=== PATIENT | male | born 1960 | race Caucasian/White ===

== ENCOUNTER 2016-10-11 09:59 | Inpatient (IN) | payer OTHER, MEDICAID ==
[2016-10-11] VITALS (37 sets, daily range): BP systolic 71–172; BP diastolic 24–107
[~2016-10-11] VITALS: Ht 172.7 cm; Wt 100.2 kg
[2016-10-11] MEDS ORDERED: LACTULOSE10 GM/152 PO (10:36)
[2016-10-11] MEDS ORDERED: MAALOX MAXIMUM355 ML PO (10:36)
[2016-10-11] MEDS ORDERED: LIDODERM 5%1 EA TP (10:36)
[2016-10-11] MEDS ORDERED: TOPCARE ASPIRIN81 MG PO (10:36)
[2016-10-11] MEDS ORDERED: CEPHULAC10 GM/152 (10:36)
[2016-10-11] MEDS ORDERED: NEOMYCIN SULFA500 M1 PO (10:36)
[2016-10-11] MEDS ORDERED: BENADRYL25 M3 PO (10:36)
[2016-10-11] MEDS ORDERED: IBUPROFEN200 M3 PO (10:36)
[2016-10-11] MEDS ORDERED: SENOKOT8.6 MG PO (10:36)
[2016-10-11] MEDS ORDERED: GERI-TUSSI100 MG/5 M PO (10:36)
[2016-10-11] MEDS ORDERED: ACIDOPHILUS LA1 EACH PO (10:36)
[2016-10-11] MEDS ORDERED: ZESTRIL10 MG PO (10:36)
[2016-10-11] MEDS ORDERED: INDERAL20 MG PO (10:36)
[2016-10-11] MEDS ORDERED: LANTUS INS100 UNITS/ SUBQ (10:36)
[2016-10-11] MEDS ORDERED: NOVOLOG100 U/ML SUBQ (10:36)
[2016-10-11] MEDS ORDERED: ALBUTEROL0.63 MG/3 NEB (10:36)
[2016-10-11] MEDS ORDERED: DAILY VITAMIN1 EAC1 PO (10:36)
[2016-10-11] MEDS ORDERED: NOVOLOG FLEX100 U/ML SC (10:38)
--- NOTE | 2016-10-11 11:23 | NUR ---
PT PLACED IN BED 4 BY EMS.
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
[2016-10-11] MEDS ORDERED: NACL 0.9% 1,000 ML IV SCH ×2 (11:30→13:35)
[2016-10-11] MEDS ORDERED: NACL 0.9% 1,000 ML IV ONE (11:35)
--- NOTE | 2016-10-11 11:44 | NUR ---
XRAY AT BEDSIDE.
[2016-10-11] MEDS ORDERED: cefTRIAXone 2,000 MG in DEXTROSE 5% 100 ML IV ONE (11:55)
[2016-10-11] MEDS ORDERED: cefTRIAXone 2,000 MG VIAL ONE (12:07)
--- NOTE | 2016-10-11 12:07 | NUR ---
REMOVED DAWN CATHETER FROM [facility] AND REPLACED WITH NO 18 FAROESE INDWELLING DAWN W/O DIFFICULTY AND IMMEDICATE RETURN OF DARK RED MILKY URINE. INFORMED. UA SENT.
--- NOTE | 2016-10-11 12:10 | NUR ---
PT NITHIN 64/35; ER MD DR. SAM NOTIFIED; PT DENIES PAIN OR DISTRESS AT THIS TIME; BL LUNG SOUNDS CLEAR, WILL CONTINUE TO MONITOR.
[2016-10-11] MEDS ORDERED: DOBUTamine 250 MG/D5W PREMIX 250 ML IV SCH (12:20)
[2016-10-11] MEDS ORDERED: DOPamine 400 MG/D5W PREMIX 250 ML IV ONE (12:24)
--- NOTE | 2016-10-11 12:30 | NUR ---
PT BP 126/64; ER MD DR. SAM NOTIFIED; PT DENIES PAIN OR DISTRESS AT THIS TIME; BL LUNG SOUNDS CLEAR, WILL CONTINUE TO MONITOR.
--- NOTE | 2016-10-11 13:24 | NUR ---
Dr. Wolfe at bedside.
[2016-10-11] MEDS ORDERED: DOCUSATE SODIUM 250 MG GELCAP PO PRN (13:35)
[2016-10-11] MEDS ORDERED: IPRATROPIUM 0.02% 0.5 MG/2.5 ML NEBU INH PRN (13:35)
[2016-10-11] MEDS ORDERED: BISACODYL 10 MG SUPP RC PRN (13:35)
[2016-10-11] MEDS ORDERED: LORazepam 2 MG/ML VIAL IVP PRN (13:35)
[2016-10-11] MEDS ORDERED: POTASSIUM CHLORIDE 40 MEQ, LIDOCAINE 1% 25 MG in NACL 0.9% 250 ML IV PRN (13:35)
[2016-10-11] MEDS ORDERED: ACETAMINOPHEN 325 MG TAB PO PRN (13:35)
[2016-10-11] MEDS ORDERED: POTASSIUM CHLORIDE 10 MEQ TABER PO PRN (13:35)
[2016-10-11] MEDS ORDERED: DEXTROSE 50% 50 ML SYR IVP PRN (13:35)
[2016-10-11] MEDS ORDERED: cloNIDine 0.1 MG TAB PO PRN (13:35)
[2016-10-11] MEDS ORDERED: ONDANSETRON 4 MG/2 ML VIAL IVP PRN (13:35)
[2016-10-11] MEDS ORDERED: MAGNESIUM OXIDE 400 MG TAB PO PRN (13:35)
[2016-10-11] MEDS ORDERED: MORPHINE SULFATE 2 MG/ML SYR IVP PRN (13:35)
[2016-10-11] MEDS ORDERED: diphenhydrAMINE 50 MG/ML VIAL IVP PRN (13:35)
[2016-10-11] MEDS ORDERED: MAG SULF 2000 MG/WATER PREMIX 50 ML IV PRN (13:35)
[2016-10-11] MEDS ORDERED: ACETAMINOPHEN 650 MG SUPP RC PRN (13:35)
[2016-10-11] MEDS ORDERED: ZOLPIDEM 5 MG TAB PO PRN (13:35)
[2016-10-11] MEDS ORDERED: ALUMINUM HYD/MAG/SIMETHICONE 30 ML UDC PO PRN (13:35)
[2016-10-11] MEDS ORDERED: ALBUTEROL 0.083% 2.5 MG/3 ML NEBU INH PRN (13:35)
[2016-10-11] MEDS ORDERED: SODIUM PHOSPHATE 118 ML ENEM RC PRN (13:35)
[2016-10-11] MEDS ORDERED: HYDROcodone/APAP 5/325 MG 1 TAB TAB PO PRN ×2 (13:35)
[2016-10-11] MEDS ORDERED: guaiFENesin DM 200/20 MG-10 ML 10 ML UDC PO PRN (13:35)
--- NOTE | 2016-10-11 13:39 | NUR ---
REPORT GIVEN TO MANOJ RN
[2016-10-11] MEDS ORDERED: SENNA 8.6 MG TAB PO PRN (13:50)
--- NOTE | 2016-10-11 13:52 | NUR ---
US AT BEDSIDE; WILL TAKE PT TO FLOOR AFTER US COMPLETED; WILL CONTINUE TO MONITOR PT.
--- NOTE | 2016-10-11 14:07 | NUR ---
Patient will be admitted to care of . Admited to ICU . Will go to room ICU 7. Belongings list completed. Report to LUZ ARANDA.
[2016-10-11] MEDS ORDERED: PIPER/TAZO 2.25GM/D5W PREMIX 50 ML IV SCH (14:30)
--- NOTE | 2016-10-11 14:30 | NUR ---
RECEIVED PT FROM ER, AWAKE ALERT AND ORIENTED X4. CZECH SPEAKING. ABLE TO UNDERSTAND MINIMAL MAORI. BREATHING EVENLY AND UNLABORED ON ROOM AIR. NO SIGNS OF ACUTE DISTRESS. KEPT HOB ELEVATED AT LEAST 30 DEGREES. SKIN IS WARM AND DRY. NOTED SACRAL AND BUTTOCKS REDNESS. OFFLOADED AND KEPT CLEAN AND DRY. ALSO NOTED RIGHT HEEL BLISTER. NO DISCHARGE OR BLEEDING NOTED. KEPT ELEVATED ON PILLOWS. NO C/O ANY BOWEL OR BLADDER DISCOMFORT. DAWN CATHETER IN PLACE, INSERTED FROM ER. NOTED 300ML OF DARK NORRIS URINE. DENIES OF ANY PAIN AT THIS TIME. PT ORIENTED TO ICU UNIT, SAFETY PRECAUTIONS MAINTAINED. CALL LIGHT WITHIN REACH.
[2016-10-11] MEDS ORDERED: NACL 0.9% IRR 250 ML BOTTLE IR PRN (15:40)
[2016-10-11] MEDS ORDERED: Z-GUARD PASTE TP PRN (15:40)
[2016-10-11] MEDS ORDERED: GAUZE TP PRN (15:40)
--- NOTE | 2016-10-11 15:40 | NUR ---
ADMIT ORDERS RECEIVED FROM DR. SOL, NOTED AND CARRIED OUT.
[2016-10-11] MEDS: INSULIN LISPRO SLIDING SCALE 100 UNITS/ML VIAL SUBQ PRN ×2 (16:00→21:26)
[2016-10-11] MEDS: BLOOD GLUCOSE MONITORING 1 DEV DEV FS SCH ×2 (16:00→21:21)
--- NOTE | 2016-10-11 16:00 | NUR ---
PT RESTING WELL IN BED, CONTINUE CURRENT PLAN OF CARE, PLACED ON A COMFORTABLE POSITION. CONTINUE TO MONITOR.
[2016-10-11] MEDS: NEOMYCIN 500 MG TAB PO SCH ×2 (16:10→21:00)
[2016-10-11] MEDS: DOPamine 400 MG/D5W PREMIX 250 ML IV SCH (16:12)
--- NOTE | 2016-10-11 17:30 | NUR ---
PT REFUSED DINNER. ENCOURAGED TOLERATED. CONTINUE TO MONITOR.
--- NOTE | 2016-10-11 19:04 | NUR ---
PT ALERT AND RESPONSIVE, NO SIGNS OF ACUTE DISTRESS. ENDORSED TO ONCOMING BEAR KEEPER NURSE FOR CONTINUITY OF CARE.
--- NOTE | 2016-10-11 20:00 | NUR ---
PATIENT ALERT, ORIENTED X4, ROMANIAN SPEAKING, SR WITH PVC ON THE MONITOR, ON DOPAMINE DRIP, IV SITES ON RIGHT WRIST G#22 AND RAC G#20 PATENT AND INTACT, DAWN CATH DRAINING DARK NORRIS URINE, BUE/BLE WEAK, DENIES PAIN. DR. CRISTINA (RENAL) WAS HERE TO SEE THE PATIENT WITH ORDERS GIVE. PATIENT'S BROTHER AND NEPHEW AT BEDSIDE AT THIS TIME
[2016-10-11] MEDS ORDERED: SODIUM BICARBONATE 8.4% PFS 50 MEQ/50 ML SYR IVP SCH (20:20)
--- NOTE | 2016-10-11 20:30 | NUR ---
G AND BMP RESULTS REALYED TO DR. CRISTINA AT 2004, NEW ORDERS GIVEN AND CARRIED OUT.
[2016-10-11] MEDS ORDERED: PIPERACILLIN/TAZOBACTAM 2.25 GM in DEXTROSE 5% 50 ML IV SCH (21:00)
[2016-10-11] MEDS ORDERED: SODIUM BICARBONATE 8.4% PFS 50 MEQ/50 ML SYR IVP ONE (21:05)
[2016-10-11] MEDS: SODIUM BICARBONATE 8.4% 100 MEQ in NACL 0.45% 1,000 ML IV SCH (21:06)
[2016-10-11] MEDS: PIPER/TAZO 2.25GM/D5W PREMIX 50 ML IV SCH (21:46)
[2016-10-12] VITALS (93 sets, daily range): BP systolic 72–145; BP diastolic 40–75
[2016-10-12] MEDS ORDERED: POTASSIUM CHLORIDE 10 MEQ TABER PO ONE (00:50)
--- NOTE | 2016-10-12 00:56 | NUR ---
DR. CRISTINA CALLED AT 0050, UPDATES GIVEN ON PATIENT'S CONDITION, NEW ORDERS GIVEN.
[2016-10-12] MEDS ORDERED: Z-GUARD PASTE TP SCH (01:00)
[2016-10-12] MEDS: NACL 0.9% IRR 250 ML BOTTLE IR SCH ×2 (01:33→13:46)
[2016-10-12] MEDS: GAUZE TP SCH ×2 (01:34→13:46)
--- NOTE | 2016-10-12 02:00 | NUR ---
PATIENT SLEEPING, DOPAMINE DRIP AT 3 MCG/KG/MIN.
--- NOTE | 2016-10-12 04:00 | NUR ---
PATIENT WITH LARGE SOFT GREENISH STOOL, BED BATH PROVIDED, COMPLETE LINEN CHANGED. DOPAMINE DRIP REMAINS AT 3 MCG/KG/MIN. NEW IV LINE PLACED ON LEFT HAND G#24 WITH GOOD BLOOD FLOW, DENIES PAIN.
[2016-10-12] MEDS: PIPER/TAZO 2.25GM/D5W PREMIX 50 ML IV SCH ×3 (05:05→21:18)
--- NOTE | 2016-10-12 05:25 | NUR ---
CALL DR. CRISTINA ON HIS CELL PHONE [phone] TO REPORT VENOUS BLOOD GAS AND BMP RESULTS BUT DID NOT ANSWER THE CALL.
--- NOTE | 2016-10-12 05:30 | NUR ---
PAGED DR. CRISTINA TO REPORT BMP AND VENOUS BLOOD GAS RESULTS, CALL CARPENTER HELPER MAINTENANCE TO CALL DR. CRISTINA.
[2016-10-12] MEDS: BLOOD GLUCOSE MONITORING 1 DEV DEV FS SCH ×4 (06:30→20:47)
[2016-10-12] MEDS: INSULIN LISPRO SLIDING SCALE 100 UNITS/ML VIAL SUBQ PRN ×4 (06:31→20:49)
[2016-10-12] MEDS ORDERED: KCL 20 MEQ/WATER INJ PREMIX 100 ML IV SCH (06:35)
--- NOTE | 2016-10-12 06:36 | NUR ---
SPOKE WITH DR. CRISTINA, REPORTED VENOUS BLOOD GAS AND BMP RESULTS DRAWN AT 0400, MD GAVE ORDERS: KRIDER 20 MEQ IV FOR POTASSIUM LEVEL OF 3.1 AND REPEAT BMP AT 1800.
[2016-10-12] MEDS ORDERED: NACL 0.9% 1,000 ML IV ONE (06:45)
--- NOTE | 2016-10-12 07:30 | NUR ---
RECEIVED REPORT FROM SAUD ESCOBAR. PT AWAKE, ALERT, AND ORIENTED. BEDSIDE MONITOR SHOWS SR WITH PVCS. ON ROOM AIR, NO S/S OF RESPIRATORY DISTRESS NOTED. LUNG SOUNDS CLEAR BILATERALLY. ABDOMEN SOFT. NON TENDER WITH ACTIVE BOWEL SOUNDS. DAWN CATH IN PLACE WITH SMALL AMOUNT OF DARK NORRIS URINE NOTED. SKIN NON INTACT( SEE WOUND ASSESSMENT). BLE AND BUE WEAKNESS NOTED. PT ON DOPAMINE DRIP 3MCG/KG/MIN AT RIGHT AC #20, AND SODIUM BICARBONATE @ 100 MLS/HR AT RIGHT WRIST. 0.9 NS KTO @ LEFT HAND #22. ALL SITES INTACT AND PATENT. PT HAD MODERATE AMOUNT OF GREENISH LOOSE GERARDO, CLEANED PT. HOB ELEVATED 30 DEGREES WITH LOW BED POSITION. ORAL CARE GIVEN. CALL LIGHT IN REACH. WILL CONTINUE TO MONITOR.
[2016-10-12] MEDS: SODIUM BICARBONATE 8.4% 100 MEQ in NACL 0.45% 1,000 ML IV SCH ×2 (08:08→18:18)
[2016-10-12] MEDS ORDERED: ENOXAPARIN 30 MG/0.3 ML SYR SUBQ SCH (09:00)
[2016-10-12] MEDS: ECOTRIN 81 MG TABEC PO SCH (09:05)
[2016-10-12] MEDS: FAMOTIDINE 20 MG TAB PO SCH (09:06)
[2016-10-12] MEDS: NEOMYCIN 500 MG TAB PO SCH ×4 (09:15→20:47)
--- NOTE | 2016-10-12 09:18 | NUR ---
PATIENT HAS BEEN SCREENED AND CATEGORIZED HIGH NUTRITION RISK. PATIENT WILL BE SEEN WITHIN 1-2 DAYS OF ADMISSION. 10/12/16-10/13/[address]
[2016-10-12] MEDS: DOPamine 400 MG/D5W PREMIX 250 ML IV SCH (09:58)
--- NOTE | 2016-10-12 10:30 | NUR ---
PT HAD MODERATE AMOUNT OF GREENISH LOOSE STOOL, CLEANED PT. WILL CONTINUE TO MONITOR.
--- NOTE | 2016-10-12 10:30 | NUR ---
WOUND CARE EVALUATION NOTES: REASON FOR EVALUATION: RIGHT HEEL WOUND COMPLETE SKIN ASSESSMENT DONE ON THIS 56 Y/O MALE PATIENT FROM COUNT INCLUDES THE [facility] TO [facility], WITH INITIAL DIAGNOSIS OF SEPSIS AND ACUTE RENAL FAILURE. PAST MEDICAL HISTORY INCLUDE LIVER CIRRHOSIS, DM , HYPERTENSION, OSTEOARTHRITIS, SPINAL INJURY AND RIGHT HEEL CHRONIC ULCER. ALL ABOVE INFORMATION WAS OBTAINED FROM THE ADMISSION H&P. LABS ARE WBC 19.4, H/H 10.6/32.9, GLUCOSE 230, ALBUMIN 1.7, PT/INR 16.3/1.7 AND PTT 37.2. CURRENT MEDS INCLUDE ASPIRIN, ENOXAPARIN, ZOSYN, MORPHINE, NORCO, AMBIEN AND INSULIN. PATIENT IS AWAKE, SLOWED MOVEMENTS AND ABLE TO FOLLOW SIMPLE COMMANDS. SKIN WARM TO TOUCH WNL, TOENAILS ARE SLIGHTLY THICKENED, NO EDEMA, FINE AND HAIR GROWTH, +2 BILATERAL PEDAL PULSES AND DISCOLORATION NOTED ON RIGHT DISTAL LOWER LEG. FC 16FR PATENT AND INTACT TO NORRIS URINE IN MODERATE AMOUNT. NOTED TO HAVE LOOSE GREENISH STOOLS IN MODERATE AMOUNT. NEEDS MAX ASSISTANCE IN TURNING. INITIAL PLAN OF CARE AND PRESSURE PREVENTIVE MEASURES DISCUSSED, ABLE TO VERBALIZE PARTIAL UNDERSTANDING. WILL REINFORCE TEACHING. INTEGUMENTARY: SACRALCOCCYX TO BILATERAL BUTTOCKS - PARTIAL THICKNESS EROSION PERIAREA TO SCROTAL AREA - PARTIAL THICKNESS EROSION RIGHT MEDIAL HEEL - ST II - INTACT BLISTER RECOMMENDATIONS: -SACRALCOCCYX, BILATERAL BUTTOCKS, PERIAREA AND SCROTAL AREA: CLEANSE WITH MILD SOAP AND WATER, PAT DRY, APPLY Z GUARD BIDWC AND PRN WITH SOILING. LEAVE OPEN TO AIR -PAINT RIGHT HEEL WITH SKIN PREP WIPES BIDWC AND LEAVE OPEN TO AIR -TURN AND REPOSITION PATIENT Q2H TO LEFT AND RIGHT SIDE ONLY TO OFFLOAD SACRALCOCCYX -ASSESS AND MONITOR SKIN CONDITION DURING POSITION CHANGE, PLEASE PAY PARTICULAR ATTENTION TO SACRALCOCCYX, ELBOWS AND HEELS -OFFLOAD BILATERAL HEELS BY PLACING PILLOWS UNDER CALVES AT ALL TIMES, UNLESS OTHERWISE CONTRAINDICATED. -KEEP SKIN CLEAN AND DRY AT ALL TIMES. RECOMMENDATIONS DISCUSSED WITH PRIMARY RN. WILL FOLLOW UP PATIENT Q 7 DAYS AND PRN. PLEASE CONTACT C FOR ANY CONCERNS, QUESTIONS AND CHANGES IN SKIN CONDITION.
--- NOTE | 2016-10-12 11:00 | NUR ---
IN TO SEE PT. UPDATED PT'S LAB REPORT AND CRITICAL LAB REPORT GRAM POSITIVE COCCI IN CLUSTER . ORDER RECEIVED, WILL CARRY OUT.
[2016-10-12] MEDS ORDERED: VANCOMYCIN PER PHARMACY MC PRN (11:40)
[2016-10-12] MEDS ORDERED: POTASSIUM CHLORIDE 10 MEQ TABER PO SCH (11:44)
[2016-10-12] MEDS ORDERED: Z-GUARD PASTE TP PRN (11:50)
[2016-10-12] MEDS ORDERED: VANCOMYCIN 1GM/DEXT 5% PREMIX 200 ML IV SCH (12:01)
--- NOTE | 2016-10-12 12:13 | NUR ---
PT COMPLAINED NAUSEA, WILL GIVE ZOFRAN ORDERED.
[2016-10-12] MEDS ORDERED: PROBIOTIC SCREEN 1 EA MISC MC PRN (13:00)
--- NOTE | 2016-10-12 13:10 | NUR ---
PT HAD MODERATE AMOUNT OF GREENISH LOOSE STOOL, CLEANED PT. CLEANED WOUND WITH 0.9 NS AND DRIED WITH GAUZE. PUT Z-GUARD ON PT ORDERED. CALL LIGHT IN REACH.
--- NOTE | 2016-10-12 13:13 | NUR ---
CM NOTE RECEIVED CALL FROM DULCE AVILA PH# [phone] EXT [phone] AND SHE SAID TO SEND REVIEWS TO [facility]. INITIAL REVIEW SENT TO [facility] FAX# [phone] DULCE AVILA PH# [phone] EXT [phone]
[2016-10-12] MEDS: Z-GUARD PASTE TP SCH (13:46)
--- NOTE | 2016-10-12 13:49 | NUR ---
10/12/16 RD INITIAL ASSESSMENT COMPLETED PLEASE REFER TO NUTRITION ASSESSMENT UNDER CARE ACTIVITY FOR ESTIMATED NUTRITIONAL NEEDS. 1. CONTINUE RENAL DIET 2. RD TO FOLLOW-UP 2-3 DAYS; HIGH RISK PARAMJIT GALVAN RD
--- NOTE | 2016-10-12 15:35 | NUR ---
IN TO ASSESS PT. NOTIFIED PT HAS POSITIVE BLOOD CULTURE GRAM COCCI IN CLUSTER. DR. SOL AWARE PT IS ON VANCOMYCIN.
--- NOTE | 2016-10-12 17:00 | NUR ---
RECEIVED CRITICAL LAB REPORT K 2.7, BUN 86. PAGED WHO IS DRILL PRESS SET UP OPERATOR RADIAL. [phone] NEPHRO
--- NOTE | 2016-10-12 17:28 | NUR ---
CALLED BACK. NOTIFIED OF LOW POTASSIUM LEVEL 2.7, BUN 86, CREAT 4.0 AND CARBON DIOXIDE 16.7, PER DR. BURGESS, GIVE K RIDER [address] SOL'S ORDER AND CONTINUE PRESENT IV WITH SODIUM BICARBONATE UNTIL TOMORROW, WILL CARRY OUT ORDERS.
--- NOTE | 2016-10-12 17:50 | NUR ---
PT'S AND DAUGHTER PRESENT AT BEDSIDE. QUESTIONS ANSWERED.
--- NOTE | 2016-10-12 18:10 | NUR ---
PT HAD MODERATE AMOUNT OF LOOSE GREENISH STOOL. CLEANED PT. NO S/S OF RESPIRATORY DISTRESS NOTED. CALL LIGHT IN REACH. WILL CONTINUE TO MONITOR.
[2016-10-12] MEDS ORDERED: POTASSIUM CHLORIDE 40 MEQ, LIDOCAINE 1% 25 MG in NACL 0.9% 250 ML IV SCH (18:30)
--- NOTE | 2016-10-12 18:48 | NUR ---
NO DISTRESS/SOB/WHEEZING NOTED AT THIS TIME. NO INDICATION FOR HHN PRN TX
--- NOTE | 2016-10-12 19:07 | NUR ---
REPORT GIVEN TO KEN RN. NO PAIN OR DISCOMFORT NOTED. NO S/S OF RESPIRATORY DISTRESS. VSS. PT HAVING DINNER AT THIS TIME.
--- NOTE | 2016-10-12 19:22 | NUR ---
RECEIVED REPORT FROM DAY NURSE ROULA, RN FOR CONTINUATION OF CARE. PT IS AAOX4 PRIMARILY [place] SPEAKING. PT IS ON ROOM AIR WITH NO S/S OF ACUTE RESP DISTRESS NOTED AT THIS TIME. PT IS ON PUBLIC HEALTH SANITARIAN TECHNICIAN SHOWING SR WITH PVCS. PT ABDOMEN IS SOFT WITH ACTIVE BOWEL SOUNDS. PT HAS LEFT HAND IV SITE #22 RUNNING POTASSIUM CHLORIDE 40MEQ IN 250ML NS @ 68ML/HR, RIGHT FA#22 RUNNING SODIUM BICARB AT 100ML/HR AND RIGHT AC #20 RUNNING DOPAMINE AT 3MCG/KG/MIN AT THIS TIME. ALL SITES DRY PATENT AND INTACT WITH GOOD BLOOD RETURN NOTED. PT IS ON DAWN CATHETER TO GRAVITY DRAINING NORRIS COLORED URINE AT THIS TIME. SKIN IS NON-INTACT, SACRAL WOUND NOTED AND RIGHT HEEL BLISTER NOTED. SEE WOUND ASSESSMENT. SCDS IN PLACE, BED IN LOW POSITION, HOB UP CALL LIGHT LEFT WITHIN REACH. SAFETY PRECAUTIONS MAINTAINED, WILL CONTINUE TO CLOSELY MONITOR.
--- NOTE | 2016-10-12 21:16 | NUR ---
PT RESTING IN BED. NO SOB NOTED AT THIS TIME. PT DENIES ANY DISCOMFORT AT THIS TIME. CURRENT BP 142/68. TITRATED DOPAMINE DOWN TO 2 MCG/KG/MIN. WILL CONTINUE TO CLOSELY MONITOR
--- NOTE | 2016-10-12 22:46 | NUR ---
PT HAD SMALL AMOUNT OF GREEN-BROWN COLORED BM. PT CLEANED. LINED CHANGED. OFF LOADED PRESSURES. WILL CONTINUE TO CLOSELY MONITOR
[2016-10-13] VITALS (54 sets, daily range): BP systolic 90–147; BP diastolic 25–76
[2016-10-13] MEDS: NACL 0.9% IRR 250 ML BOTTLE IR SCH ×2 (01:00→13:34)
[2016-10-13] MEDS: GAUZE TP SCH ×2 (01:00→13:34)
[2016-10-13] MEDS: Z-GUARD PASTE TP SCH ×2 (01:00→13:34)
--- NOTE | 2016-10-13 01:23 | NUR ---
PT HAD MODERATE AMOUNT OF BROWN BM. PT CLEANED, LINEN CHANGED. PERINEAL CARE DONE. APPLIED Z-GUARD. NO SOB NOTED AT THIS TIME. PT DENIES ANY PAIN OR DISCOMFORT AT THIS TIME. WILL CONTINUE TO CLOSELY MONITOR.
--- NOTE | 2016-10-13 03:39 | NUR ---
PT APPEARS TO BE RESTING COMFORTABLY IN BED. NO S/S OF ACUTE RESP DISTRESS NOTED AT THIS TIME. NO SIGNS OF DISCOMFORT AT THIS TIME. SAFETY PRECAUTIONS STILL MAINTAINED. CALL LIGHT LEFT WITHIN REACH. WILL CONTINUE TO CLOSELY MONITOR.
--- NOTE | 2016-10-13 04:35 | NUR ---
PT LEFT HAND IV TUBING DISLODGE FROM SITE. PT CLEANED. IV SITE FLUSHED PATENT INTACT AND GOOD BLOOD RETURN NOTED. IV DRESSING CHANGED. PT HAD SMALL AMOUNT OF BM. PT CLEANED. LINEN AND BED CHANGED. PT BATHED. MORNING CARE RENDERED. NO SOB NOTED AT THIS TIME. PT DENIES ANY PAIN AT THIS TIME. BED IN LOW POSITION, HOB UP. WILL CONTINUE TO MONITOR.
[2016-10-13] MEDS: PIPER/TAZO 2.25GM/D5W PREMIX 50 ML IV SCH ×3 (05:30→20:02)
[2016-10-13] MEDS: SODIUM BICARBONATE 8.4% 100 MEQ in NACL 0.45% 1,000 ML IV SCH ×2 (05:31→17:12)
--- NOTE | 2016-10-13 06:18 | NUR ---
PT RESTING IN BED. DENIES ANY PAIN OR DISCOMFORT AT THIS TIME. NO SOB NOTED. SAFETY PRECAUTIONS STILL MAINTAINED. NO CHANGE IN CURRENT STATUS. WILL CONTINUE TO CLOSELY MONITOR.
[2016-10-13] MEDS: BLOOD GLUCOSE MONITORING 1 DEV DEV FS SCH ×4 (06:44→20:30)
[2016-10-13] MEDS: INSULIN LISPRO SLIDING SCALE 100 UNITS/ML VIAL SUBQ PRN ×4 (06:45→20:31)
--- NOTE | 2016-10-13 07:16 | NUR ---
ENDORSED PLAN OF CARE TO DAY NURSES LUZ FRANKLIN AND LUZ YANEZ FOR TRANSFER OF CARE. PT STABLE AT THIS TIME.
--- NOTE | 2016-10-13 07:30 | NUR ---
RECEIVED PATIENT REPORT FROM LUZ ROGERS. INITIAL ASSESSMENT DONE. SR ON THE MONITOR. PATIENT AWAKE, ALERT AND ORIENTED. NO S/S OF DISTRESS NOTED. PATIENT ON ROOM AIR. NO C/O OF PAIN AT THIS TIME. DAWN CATHETER IN PLACE DRAINING DARK NORRIS URINE. LEFT HAND IV LINE NOTED WITH NS AT 10ML INFUSING WELL. RIGHT AC IV 20G NO SIGNS OF INFILTRATION WITH DOPAMINE DRIP AT 2MCG/KG/MIN. SYSTOLIC BP ABOVE 90. RIGHT WRIST 22G WITH .45NS PLUS 2 AMPS OF SODIUM BICARB AT 100ML/HR. RIGHT HEEL BLISTER INTACT AND RAISE DRILL OPERATOR. INCONTINENT DERMATITIS ON THE BILATERAL BUTTOCKS. SCD IN PLACE. SIDE RAILS X3. BED LOWERED AND LOCKED. CALL LIGHT WITHIN REACH. WILL CONTINUE TO MONITOR
--- NOTE | 2016-10-13 07:48 | NUR ---
ABG DRAWN ON RB WITHOUT INCIDENT AND RESULTS GIVEN TO LUZ YANEZ AND LUZ FRANKLIN
--- NOTE | 2016-10-13 08:08 | NUR ---
PAGED DR BURGESS TO INFORM HER ABOUT PATIENT'S ABG RESULTS
--- NOTE | 2016-10-13 08:10 | NUR ---
DR BURGESS AWARE OF PATIENT'S ABG RESULTS
[2016-10-13] MEDS: FAMOTIDINE 20 MG TAB PO SCH (08:54)
[2016-10-13] MEDS: ECOTRIN 81 MG TABEC PO SCH (08:54)
[2016-10-13] MEDS: LACTOBACILLUS RHAMNOSUS GG 1 EACH CAP PO SCH (08:54)
[2016-10-13] MEDS: NEOMYCIN 500 MG TAB PO SCH ×4 (08:55→20:02)
[2016-10-13] MEDS: DOPamine 400 MG/D5W PREMIX 250 ML IV SCH (09:28)
[2016-10-13] MEDS ORDERED: VANCOMYCIN 1GM/DEXT 5% PREMIX 200 ML IV SCH (10:00)
--- NOTE | 2016-10-13 11:57 | NUR ---
DOPAMINE DRIP DISCONTINUED. BP 136/76 HR 87. PATIENT HAD A BM. BM LOOSE, BROWN AND MODERATE IN AMOUNT. PATIENT GIVEN PERINEAL CARE. Z-GUARD APPLIED TO BILATERAL BUTTOCKS. PATIENT REPOSITIONED. WILL CONTINUE TO MONITOR
--- NOTE | 2016-10-13 13:13 | NUR ---
CM NOTE CONCURRENT REVIEW SENT TO [facility] FAX# [phone] DULCE AVILA PH# [phone] EXT [phone]
[2016-10-13] MEDS ORDERED: POTASSIUM CHLORIDE 10 MEQ TABER PO SCH (14:30)
--- NOTE | 2016-10-13 16:18 | NUR ---
NOTIFIED PATIENT'S , VANESSA NGUYEN, THAT PATIENT WILL BE TRANSFERRED TO [facility] ROOM 111A
--- NOTE | 2016-10-13 18:15 | NUR ---
RECEIVED PATIENT FROM ICU. PATIENT AWAKE, ALERT AND ORIENTED. NO S/S OF DISTRESS. PATIENT ON ROOM AIR. NO C/O OF PAIN AT THIS TIME. IV LINES NOTED TO THE LEFT AND RIGHT WRIST AND RIGHT AC. IV LINES INTACT AND ASYMPTOMATIC. DAWN CATHETER IN PLACE, DRAINING DARK NORRIS URINE. PATIENT PLACED ON TELE MONITORING. BED LOWERED WITH CALL LIGHT WITHIN REACH. WILL CONTINUE TO MONITOR
--- NOTE | 2016-10-13 19:22 | NUR ---
PATIENT REPORT GIVEN AT BEDSIDE. PATIENT ENDORSED IN STABLE CONDITION
--- NOTE | 2016-10-13 19:30 | NUR ---
RECEIVED REPORT FROM RENATA ESCOBAR AT BEDSIDE. PT IS ALERT AWAKE ORIENTED X4. KAZAKH-SPEAKING ONLY. INITIAL ASSESSMENT DONE. NO S/S OF RESPIRATORY DISTRESS OR SOB NOTED. NO C/O PAIN OR ANY DISCOMFORT AT THIS TIME. PLAN OF CARE REVIEWED TO PT AND VERBALIZED UNDERSTANDING AND NEED TO BE REINFORCED. CALL LIGHT WITHIN REACH. WILL CONTINUE TO MONITOR.
--- NOTE | 2016-10-13 21:00 | NUR ---
DR. JORDAN CAME TO SEE PT AND NO NEW ORDERS WERE GIVEN. WILL CONTINUE TO MONITOR.
[2016-10-14] VITALS: BP 116/69
--- NOTE | 2016-10-14 00:20 | NUR ---
PT IS SLEEPING RIGHT NOW BUT EASILY AROUSABLE. NO S/S OF ANY DISCOMFORT AT THIS TIME. ALL NEEDS ARE ATTENDED. CALL LIGHT WITHIN REACH. WILL CONTINUE TO MONITOR.
[2016-10-14] MEDS: NACL 0.9% IRR 250 ML BOTTLE IR SCH ×2 (00:59→13:00)
[2016-10-14] MEDS: Z-GUARD PASTE TP SCH ×2 (01:00→13:00)
[2016-10-14] MEDS: GAUZE TP SCH ×2 (01:00→13:00)
[2016-10-14 04:00] VITALS: BP 123/72
--- NOTE | 2016-10-14 05:00 | NUR ---
AM CARE RENDERED. BED LINEN CHANGED. REPOSITIONED PATIENT. KEPT CLEAN AND DRJose L CALL LIGHT WITHIN REACH. WILL CONTINUE TO MONITOR.
[2016-10-14] MEDS: PIPER/TAZO 2.25GM/D5W PREMIX 50 ML IV SCH (05:23)
[2016-10-14] MEDS: SODIUM BICARBONATE 8.4% 100 MEQ in NACL 0.45% 1,000 ML IV SCH (05:24)
[2016-10-14] MEDS: BLOOD GLUCOSE MONITORING 1 DEV DEV FS SCH ×4 (06:21→21:04)
[2016-10-14] MEDS: INSULIN LISPRO SLIDING SCALE 100 UNITS/ML VIAL SUBQ PRN ×4 (06:22→21:07)
--- NOTE | 2016-10-14 07:30 | NUR ---
RECEIVED REPORT FROM PHYSICIST ASTROPHYSICS NURSE. PT AOX4, ABLE TO VERBALIZE NEEDS. CHIEF CONTROLLER TOWER IN PLACE. DAWN CATH IN PLACE, DRAINING CLEAR YELLOW URINE. SACRAL INCONTINENT DERMATITIS AND RIGHT HEEL BLISTER NOTED. PT DENIES CP, SOB OR S/S OF ACUTE DISTRESS. IV ACCESS ASYMPTOMATIC, PATENT AND INTACT. IVF INFUSING WELL. DISCUSSED AND REVIEWED PLAN OF CARE WITH PT. PT VERBALIZES UNDERSTANDING. SAFETY MEASURES ENSURED. PT REPOSITIONED, OFFLOADED PRESSURE SITES. Addendum: 10/14/16 at 2139 by Pardeep Garcias RN INCORRECT TIME ON ENTRY. CORRECT TIME: 1929
--- NOTE | 2016-10-14 07:35 | NUR ---
RECEIVED REPORT FROM NIGHT NURSE AT BEDSIDE. PT IS AAOX4 AND CITIZEN OF [place] AND [place] SPEAKER. PT HAS DAWN CATHETER IN PLACE WITH DARK NORRIS URINE. PT IS ON ROOM AIR, DENIES PAIN, AND SHOWS NO S/S OF DISTRESS. PT HAS NOTED RIGHT HEEL CHRONIC ULCER IT IS A CLOSED WOUND. NOTED NON-PITTING EDEMA BILATERALLY ON THE LOWER LEGS. PT LEGS ARE ELEVATED. SCROTUM IS ENLARGED AND NOTED INCONTINENT DERMATITIS. IV ON THE R AC AND HEPLOCKED. SECOND IV ON THE R WRIST WITH IVF RUNNING AND ALSO IV ON THE L HAND TKO. PT BED LOWERED, FLAT, WITH CALL LIGHT WITHIN REACH. WILL CONTINUE TO MONITOR.
--- NOTE | 2016-10-14 07:40 | NUR ---
PT HAS NO S/S OF ANY DISCOMFORT. PLAN OF CARE ENDORSED TO AM SHIFT NURSE FOR CONTINUITY OF CARE.
[2016-10-14 08:00] VITALS: BP 112/49
[2016-10-14] MEDS ORDERED: POTASSIUM CHLORIDE 10 MEQ TABER PO SCH ×3 (08:00→18:00)
[2016-10-14] MEDS: ECOTRIN 81 MG TABEC PO SCH (09:29)
[2016-10-14] MEDS: NEOMYCIN 500 MG TAB PO SCH ×4 (09:30→21:08)
[2016-10-14] MEDS: FAMOTIDINE 20 MG TAB PO SCH (09:30)
[2016-10-14] MEDS: LACTOBACILLUS RHAMNOSUS GG 1 EACH CAP PO SCH (09:30)
--- NOTE | 2016-10-14 09:30 | NUR ---
ADMINISTERED SCHEDULED MEDICATIONS. PT TOLERATED WELL. PT SHOWS NO S/S OF DISTRESS. PT DENIES PAIN.
--- NOTE | 2016-10-14 11:00 | NUR ---
PT BEING SEEN BY DR UNDERWOOD
--- NOTE | 2016-10-14 11:15 | NUR ---
RECEIVED CRITICAL LAB RESULT OF POSITIVE FOR MRSA AND CARBAPENEM NO SUSCEPTIBLE ORGANISM OF THE URINE FROM [facility]. WILL FOLLOW PROTOCOL.
--- NOTE | 2016-10-14 11:20 | NUR ---
PAGED DR. SOL FOR CRITICAL LAB VALUES.
--- NOTE | 2016-10-14 11:30 | NUR ---
RECEIVED CALL BACK FROM DR. SOL ABOUT CRITICAL LAB VALUE. NO NEW ORDERS.
--- NOTE | 2016-10-14 11:50 | NUR ---
concurrent review faxed to [facility], [place] [phone] and Miguel phone number at [phone] ext [phone]
--- NOTE | 2016-10-14 11:55 | NUR ---
SS NOTE: I SPOKE WITH PT BEDSIDE WITH LUZ BOOKER TO TRANSLATE. PT STATED THAT HE WOULD LIKE TO RETURN TO [facility] UPON DISCHARGE.
[2016-10-14 12:00] VITALS: BP 133/68
[2016-10-14] MEDS ORDERED: SODIUM BICARBONATE 8.4% 100 MEQ in NACL 0.45% 1,000 ML IV SCH (13:00)
--- NOTE | 2016-10-14 13:00 | NUR ---
PT GIVEN WOUND CARE ORDERED. PT TOLERATED WELL. PT STATES NO PAIN AT SACRAL AREA. WHILE TURNING PT R WRIST IV WAS DISLODGED. IV CANNULA INTACT. PT SHOWS NO S/S OF DISTRESS. PT DENIES PAIN. WILL CONTINUE TO MONITOR.
--- NOTE | 2016-10-14 13:50 | NUR ---
ADMINISTERED SCHEDULED MEDICATIONS. PT TOLERATED WELL. PT DENIES PAIN AND SOB.
--- NOTE | 2016-10-14 15:15 | NUR ---
SS NOTE: SENT CURRENT MICROBIOLOGY TO [facility], RECEIVED FAX CONFIRMATION
[2016-10-14 16:00] VITALS: BP 128/72
--- NOTE | 2016-10-14 16:30 | NUR ---
PT IN BED WATCHING TV. PT DENIES SOB AND PAIN. WILL CONTINUE TO MONITOR.
[2016-10-14] MEDS ORDERED: VANCOMYCIN 1,250 MG in NACL 0.9% 250 ML IV SCH (18:00)
--- NOTE | 2016-10-14 18:00 | NUR ---
ADMINISTERED SCHEDULED MEDICATIONS. PT TOLERATED WELL. PT SHOWS NO S/S OF DISTRESS. PT ON ROOM AIR AND DENIES SOB. PT DENIES PAIN.
--- NOTE | 2016-10-14 19:20 | NUR ---
GAVE REPORT TO NIGHT NURSE AT BEDSIDE. PT ENDORSED IN STABLE CONDITION.
--- NOTE | 2016-10-14 19:30 | NUR ---
RECEIVED REPORT FROM TOOL SUPERVISOR NURSE. PT AOX4, ABLE TO VERBALIZE NEEDS. HEAD SETTER IN PLACE. DAWN CATH IN PLACE, DRAINING CLEAR YELLOW URINE. SACRAL INCONTINENT DERMATITIS AND RIGHT HEEL BLISTER NOTED. PT DENIES CP, SOB OR S/S OF ACUTE DISTRESS. IV ACCESS ASYMPTOMATIC, PATENT AND INTACT. IVF INFUSING WELL. DISCUSSED AND REVIEWED PLAN OF CARE WITH PT. PT VERBALIZES UNDERSTANDING. SAFETY MEASURES ENSURED. PT REPOSITIONED, OFFLOADED PRESSURE SITES. Addendum: 10/14/16 at 2140 by Pardeep Garcias RN CORRECT ENTRY: RECEIVED REPORT FROM DAY SHIFT NURSE.
[2016-10-14 20:00] VITALS: BP 122/63
--- NOTE | 2016-10-14 21:10 | NUR ---
ADMINISTERED MEDICATIONS WITH EDUCATION. PT VERBALIZES UNDERSTANDING. PT TOLERATED WELL. IVF INFUSING WELL. SAFETY MEASURES ENSURED. WILL CONTINUE TO MONITOR.
[2016-10-15] VITALS: BP 105/57
--- NOTE | 2016-10-15 | NUR ---
PT SLEEPING IN BED, CONDITION STABLE. ALL NEEDS MET. IVF INFUSING WELL. SAFETY MEASURES ENSURED. WILL CONTINUE TO MONITOR.
[2016-10-15] MEDS: GAUZE TP SCH ×2 (01:00→12:21)
[2016-10-15] MEDS: NACL 0.9% IRR 250 ML BOTTLE IR SCH ×2 (01:00→12:51)
[2016-10-15] MEDS: Z-GUARD PASTE TP SCH ×2 (01:00→12:38)
--- NOTE | 2016-10-15 02:00 | NUR ---
RIGHT IV ACCESS SEEN REMOVED, CANNULA INTACT, SITE REINFORCED WITH GAUZE. PT REMINDED TO MOVE SLOWLY TO PREVENT IV SITES FROM DISLODGING. WILL INSERT NEW IV. LEFT HAND IV ACCESS ASYMPTOMATIC, PATENT AND INTACT. IVF INFUSING WELL. WOUND CARE PERFORMED ORDERED. PT CLEANED AND LINEN CHANGED. PT DENIES PAIN, TOLERATED WELL. PT REPOSITIONED AND OFFLOADED PRESSURE SITES. RIGHT IV ACCESS SEEN REMOVED, CANNULA INTACT. PT REMINDED TO MOVE SLOWLY TO PREVENT IV SITES FROM DISLODGING. SAFETY MEASURES ENSURED. CALL LIGHT WITHIN REACH. WILL CONTINUE TO MONITOR.
[2016-10-15 04:00] VITALS: BP 106/60
--- NOTE | 2016-10-15 04:00 | NUR ---
PT RESTING IN BED AT THIS TIME. CONDITION STABLE. NO S/S OF ACUTE DISTRESS. IV ACCESS 20G ON RIGHT HAND INSERTED, PT TOLERATED WELL. PT REPOSITIONED, OFFLOADED PRESSURE SITES. DAWN CATH, DRAINING CLEAR NORRIS URINE, EMPTIED WITH 900ML OUTPUT. ASSISTED PT WITH ADLS. SAFETY MEASURES ENSURED. CALL LIGHT WITHIN REACH. WILL CONTINUE TO MONITOR.
[2016-10-15] MEDS: BLOOD GLUCOSE MONITORING 1 DEV DEV FS SCH ×3 (07:05→17:00)
[2016-10-15] MEDS: INSULIN LISPRO SLIDING SCALE 100 UNITS/ML VIAL SUBQ PRN ×3 (07:06→17:07)
--- NOTE | 2016-10-15 07:20 | NUR ---
RECEIVED PT IN BED ASLEEP. AROUSABLE TO VOICE. NO SOB NOTED. DENIES ANY PAIN OR DISCOMFORT AT THIS TIME. POSITIVE BOWEL SOUNDS NOTED ON FOUR QUADRANTS. PT BEDBOUND. ATTACHED TO SCD. DAWN CATHETER IN PLACE. DRAINING DARK YELLOW URINE. SAFETY PRECAUTION IN PLACE. CALL LIGHT WITHIN REACH.
--- NOTE | 2016-10-15 07:35 | NUR ---
ENDORSED PLAN OF CARE TO DAY NURSE. CONDITION STABLE.
[2016-10-15 08:00] VITALS: BP 111/56
[2016-10-15] MEDS: LACTOBACILLUS RHAMNOSUS GG 1 EACH CAP PO SCH (08:31)
[2016-10-15] MEDS: ECOTRIN 81 MG TABEC PO SCH (08:31)
[2016-10-15] MEDS: FAMOTIDINE 20 MG TAB PO SCH (08:33)
[2016-10-15] MEDS: NEOMYCIN 500 MG TAB PO SCH ×3 (08:44→17:04)
--- NOTE | 2016-10-15 09:07 | NUR ---
FAXED CONCURRENT REVIEW TO [facility] [phone] PHONE [place] [phone] FAXED CONCURRENT REVIEW TO [facility] [phone] PHONE [phone]
[2016-10-15 12:00] VITALS: BP 125/55
[2016-10-15] MEDS ORDERED: VANCOMYCIN1.5 GM/252 IV (12:32)
[2016-10-15] MEDS ORDERED: ROCEPHIN2 G1 IJ (12:33)
[2016-10-15] MEDS ORDERED: LEVEMIR100 U/M2 SC (12:34)
[2016-10-15] MEDS ORDERED: VANCOMYCIN 1,250 MG in NACL 0.9% 250 ML IV SCH (13:00)
--- NOTE | 2016-10-15 15:27 | NUR ---
SS NOTE: PER CATHIE AT [facility] ([phone]), NO ISO BED AVAILABLE FOR PT TODAY
--- NOTE | 2016-10-15 15:38 | NUR ---
SS NOTE: PER CATHIE FROM [facility] ([phone]), THEY WERE ABLE TO MAKE AN ISO BED FOR PT. SHE ALSO STATED THAT PT CAN GO TO ROOM 32A UNDER DR. Antonio WATSON ANYTIME AFTER AFTER 1900. DULCE SANDOVAL.
--- NOTE | 2016-10-15 15:43 | NUR ---
SPOKE WITH [place] FROM [facility] AND INFORMED HER THAT PATIENT WILL BE GOING BACK TO [facility] WITH IV ANTIBIOTICS. I FAXED HER TH ORDER FOR THE IV ANTIBIOTICS. CALLED [facility] AND SET UP TRANSPORT FOR 8P.M. PER [place] , NO AUTH NEEDED FOR [facility].
[2016-10-15 16:00] VITALS: BP 121/58
[2016-10-15 16:08] VITALS: BP 121/58
--- NOTE | 2016-10-15 17:52 | NUR ---
CALLED [facility] TO GIVE REPORT FOR PT TRANSFER. SPOKE WITH ESTEBAN.
--- NOTE | 2016-10-15 18:00 | NUR ---
CALLED [facility] BUT DOESN'T SPEAK ETHIOPIAN SO SPOKE WITH DAUGHTER DONALD MADE AWARE OF PT TRANSFER.
--- NOTE | 2016-10-15 18:20 | NUR ---
DISCHARGE TEACHINGS GIVEN, PT VERGBALIZED UNDERSTANDING. PT UNABLE TO SIGN DISCHARGE PAPERS. VERIFIED AND SIGNED BY ANOTHER RN. PHOTOS TAKEN FOR THE LEFT AND RIGHT BUTTOCK AREA INCONTINENT DERMATITIS AND RIGHT HEEL BLISTER.
--- NOTE | 2016-10-15 19:37 | NUR ---
ENDORSED TO THE NEXT SHIFT FOR CONTINUITY OF CARE. PT ON STABLE CONDITION. MADE AWARE OF PT BOREMATIC OPERATOR TIME BY [facility] AT 8PM. PT DENIES ANY PAIN OR DISCOMFORT AT THIS TIME. NO SOB NOTED. FAMILY CAME TO VISIT PT AND AT THE BEDSIDE.
--- NOTE | 2016-10-15 19:38 | NUR ---
RECEIVED PT FROM MENDEZ RN PT SERBIAN SPEAKER [id number] ON TELE SR PT READY TO PRODUCTION MACHINE SHOP SUPERVISOR [place] [facility] [place] ALL PAPER WORK FOR DIS[place]GED ARE READY WAITING FOR AMBULANCE
--- NOTE | 2016-10-15 20:20 | NUR ---
AMBULANCE IS HERE TO SEO COORDINATOR THE PT ID BAND IS CUT AND TELE REMOVED VSS
[2016-10-15] MEDS ORDERED: INSULIN DETEMIR 100 UNITS/ML 10 ML VIAL SUBQ SCH (21:00)
--- NOTE | 2016-10-16 11:45 | NUR ---
RECEIVED REQUEST FROM [facility] ASKING FOR H&P, MED RECONCILIATION LIST AND DC SUMMARY. I CALLED AUSTIN AT [facility] AND TOLD HER I HAD EVERTHING BUT THE DC SUMMARY. SHE SAID TO FAX THE H&P AND MED RECONCILIATION LIST TO HER AT [phone], WHICH I DID. PHONE [place] [phone].
[2016-12-14] MEDS ORDERED: VITAMIN C500 M8 PO (13:14)
[2016-12-14] MEDS ORDERED: COREG25 MG PO (13:14)
[2016-12-14] MEDS ORDERED: CRANBERRY450 MG PO (13:17)
[2016-12-14] MEDS ORDERED: LASIX40 MG PO (13:17)
[2016-12-14] MEDS ORDERED: PROBIOTIC1 EACH PO (13:18)
[2016-12-14] MEDS ORDERED: COLACE100 MG PO (13:19)
[2016-12-14] MEDS ORDERED: LATANOPROST 2.2.5 ML OP (13:20)
[2016-12-14] MEDS ORDERED: LISINOPRIL10 M1 PO (13:21)
[2016-12-14] MEDS ORDERED: PROTONIX40 MG PO (13:22)
[2016-12-14] MEDS ORDERED: ALDACTONE50 MG PO (13:24)
[2016-12-14] MEDS ORDERED: ZOCOR20 MG PO (13:24)
== END 2016-10-15 20:20 | DRG 871 ==
LOC: MED 09:59 → MIC 13:46 → MTU 22:00 → MIC 22:07 → MTU 10-13 17:38
PROVIDERS: ADMIT Internal Medicine Pulmonary Disease; ATTEND Internal Medicine Pulmonary Disease
DX: A41.02 Sepsis due to Methicillin resistant Staphylococcus aureus (principal); G93.41 Metabolic encephalopathy; R65.21 Severe sepsis with septic shock; N17.0 Acute kidney failure with tubular necrosis; N39.0 Urinary tract infection, site not specified; E44.0 Moderate protein-calorie malnutrition; G82.20 Paraplegia, unspecified; L97.419 Non-pressure chronic ulcer of right heel and midfoot with unspecified severity; E86.0 Dehydration; M19.90 Unspecified osteoarthritis, unspecified site; L89.309 Pressure ulcer of unspecified buttock, unspecified stage; I12.9 Hypertensive chronic kidney disease with stage 1 through stage 4 chronic kidney disease, or unspecified chronic kidney disease; N18.9 Chronic kidney disease, unspecified; E11.621 Type 2 diabetes mellitus with foot ulcer; E78.5 Hyperlipidemia, unspecified; K70.30 Alcoholic cirrhosis of liver without ascites; E83.39 Other disorders of phosphorus metabolism; E83.51 Hypocalcemia; Z79.82 Long term (current) use of aspirin; Z79.4 Long term (current) use of insulin; Z79.899 Other long term (current) drug therapy; Z68.33 Body mass index [BMI] 33.0-33.9, adult; Z74.01 Bed confinement status; Z87.891 Personal history of nicotine dependence

== ENCOUNTER 2016-12-14 12:43 | Inpatient (IN) | payer OTHER, MEDICAID ==
[2016-12-14] VITALS (22 sets, daily range): BP systolic 60–115; BP diastolic 34–62
[~2016-12-14] VITALS: Ht 160 cm; Wt 99.3 kg
[~2016-12-14 12:43] MED LIST: ALBU0.63 NEB; ASPI-1081 PO; IND20 PO; INSU-1188 SC; INSU100S45 SUBQ; INSU100S54 SC; LACT10SO1 PO; LACT1CAP72 PO; MULT-2246 PO; NEOM500T2 PO; ROC2I IJ; SENN8.6T99 PO; VANC1.5P9 IV
--- NOTE | 2016-12-14 13:00 | NUR ---
Note undone in EDM - 12/14/16 at 1402 by [email or web address] 56M BIB[place] [facility] C/O DM WOUND R& L LEGS ,WOUND CARE ANIRUDH BUTTOCK & COCCYX X TODAY; PER [facility], PT WAS EN ROUTE TO [facility] FOR WOUND CARE, BUT BP DROPPED TO 88/40; PT AWAKE, ALERT, VERBALLY RESPONSIVE UPON ARRIVAL.PT HAS SUPRAPUBIC CATH 100 ML ;BROWN& CLOUDY.HX: DM, HTN, CIRRHOSIS OF THE LIVER, PARAPLEGIA DENIES N/V/D; AAOX4 WITH AMB WITH W/C; LUNGS CLEAR BL; HR EVEN AND REGULAR; PT DENIES ANY FEVER, CP OR SOB AT THIS TIME; PATIENT STATES PAIN OF 0/10 AT THIS TIME; BP 109/60; PATIENT POSITIONED FOR COMFORT; HOB ELEVATED; BEDRAILS UP X2; BED DOWN. ER MD MADE AWARE OF PT STATUS.
--- NOTE | 2016-12-14 13:00 | NUR ---
56M BIBA FROM [facility] C/O DM WOUND R& L LEGS ,WOUND CARE TO COCCYX X TODAY; PER [facility], PT WAS EN ROUTE TO [facility] FOR WOUND CARE, BUT BP DROPPED TO 88/40; PT AWAKE, ALERT, VERBALLY RESPONSIVE UPON ARRIVAL.PT HAS SUPRAPUBIC CATH 100 ML ;BROWN& CLOUDY.HX: DM, HTN, CIRRHOSIS OF THE LIVER, PARAPLEGIA DENIES N/V/D; AAOX4 WITH AMB WITH W/C; LUNGS CLEAR BL; HR EVEN AND REGULAR; PT DENIES ANY FEVER, CP OR SOB AT THIS TIME; PATIENT STATES PAIN OF 0/10 AT THIS TIME; BP 109/60; PATIENT POSITIONED FOR COMFORT; HOB ELEVATED; BEDRAILS UP X2; BED DOWN. ER MD MADE AWARE OF PT STATUS.
[2016-12-14] MEDS ORDERED: NACL 0.9% 500 ML IV ONE ×2 (13:05)
--- NOTE | 2016-12-14 13:13 | NUR ---
LAB AT BEDSIDE
--- NOTE | 2016-12-14 13:13 | NUR ---
X RAY AT BEDSIDE
[2016-12-14] MEDS ORDERED: CARV25TA PO (13:14)
[2016-12-14] MEDS ORDERED: ASCO500T45 PO (13:14)
[2016-12-14] MEDS ORDERED: FURO-570 PO (13:17)
[2016-12-14] MEDS ORDERED: CRAN450C PO (13:17)
[2016-12-14] MEDS ORDERED: LACT1CAP63 PO (13:18)
[2016-12-14] MEDS ORDERED: DOCU-264 PO (13:19)
[2016-12-14] MEDS ORDERED: LATA2.5S8 OP (13:20)
[2016-12-14] MEDS ORDERED: LISI10TA11 PO (13:21)
[2016-12-14] MEDS ORDERED: PANT40EC PO (13:22)
[2016-12-14] MEDS ORDERED: SIMV20TA1 PO (13:24)
[2016-12-14] MEDS ORDERED: SPIR50TA PO (13:24)
[2016-12-14 13:35] LABS: HEMATOCRIT 21.9 % (36-52); HEMOGLOBIN 7.1 g/dL (12.0-18.0); MEAN CORPUSCULAR HEMOGLOBIN 28 pg (27-31); MEAN CORPUSCULAR HGB CONC 32 g/dL (33-37); MEAN CORPUSCULAR VOLUME 85 fL (80-94); PLATELET COUNT (AUTO) 92 K/uL (140-450); RED BLOOD CELL COUNT(AUTO) 2.57 MIL/uL (4.20-6.10); RED CELL DISTRIBUTION WIDTH 16.8 % (11.6-13.7); WHITE BLOOD COUNT (AUTO) 7.3 K/uL (4.8-10.8)
[2016-12-14 13:55] LABS: INR 1.4 (0.8-1.2); PARTIAL THROMBOPLASTIN TIME 32.1 secs (22-35.6); PROTHROMBIN TIME 13.8 secs (10.8-13.4)
[2016-12-14 13:59] LABS: LACTIC ACID 1.3 mmol/L (0.4-2.0)
[2016-12-14 14:01] LABS: BAND % (MANUAL) 6 % (0-8); EOSINOPHILS % (MANUAL) 1 % (0-4); LYMPHOCYTES % (MANUAL) 4 % (20-46); MONOCYTES % (MANUAL) 4 % (5-12); NEUTROPHILS % (MANUAL) 85 (43-65); PLATELET ESTIMATE SLIGHTLY DECREASED
[2016-12-14 14:03] LABS: ALBUMIN 1.4 g/dL (3.4-5.0); ANION GAP 20.7 (8-16); CALCIUM 7.8 mg/dL (8.5-10.1); CARBON DIOXIDE 11.8 mmol/L (21-32); POTASSIUM 4.5 mmol/L (3.5-5.1); TOTAL BILIRUBIN 0.3 mg/dL (0.0-1.0)
[2016-12-14 14:08] LABS: CREATININE 4.2 mg/dL (0.7-1.3)
[2016-12-14] MEDS ORDERED: PIPERACILLIN/TAZOBACTAM 3.375 GM in DEXTROSE 5% 50 ML IV ONE (14:20)
[2016-12-14] MEDS ORDERED: PIPERACILLIN/TAZOBACTAM 3.375 GM VIAL IV ONE (14:28)
--- NOTE | 2016-12-14 14:39 | NUR ---
PT C/O HEADACHE 02/14. NOTIFIED ER MD DR AQUINO.
[2016-12-14 14:55] LABS: APPEARANCE,URINE CLOUDY (CLEAR); BILIRUBIN,URINE 1+ (NEGATIVE); BLOOD, URINE 3+ (NEGATIVE); COLOR,URINE YELLOW (YELLOW); LEUKOCYTE ESTERASE ,URINE 3+ (NEGATIVE); NITRITE, URINE NEGATIVE (NEGATIVE); PH,URINE >=9.0 (5.0-9.0); PROTEIN,URINE 2+ (NEGATIVE); UGLUCOSE NEGATIVE (NEGATIVE); UROBILINOGEN,URINE 0.2 EU/dL (0.2 - 1)
[2016-12-14 15:03] LABS: ICTOTEST NEGATIVE (NEGATIVE)
[2016-12-14 15:04] LABS: BACTERIA,URINE 3+ /HPF (None Seen); RBC,URINE 20-50 /HPF (0-5); WBC,URINE 16-25 (MOD) /HPF (0-5)
[2016-12-14 15:05] LABS: SQUAMOUS EPITHELIAL CELL,UR 0-3 (FEW) /LPF (0-3 (FEW))
[2016-12-14] MEDS ORDERED: ACETAMINOPHEN 325 MG TAB PO PRN (15:10)
[2016-12-14] MEDS ORDERED: HYDROcodone/APAP 7.5/325 MG 1 TAB PO PRN (15:10)
[2016-12-14] MEDS ORDERED: DOCUSATE SODIUM 100 MG GELCAP PO PRN (15:10)
[2016-12-14] MEDS ORDERED: KETOROLAC 30 MG/ML VIAL IVP ONE (15:10)
[2016-12-14] MEDS ORDERED: ONDANSETRON 4 MG/2 ML VIAL IM/IVP PRN (15:10)
--- NOTE | 2016-12-14 15:10 | NUR ---
GAVE PAIN MED IV ORDER.
--- NOTE | 2016-12-14 15:39 | NUR ---
[facility] Admited to TELE. Will go to room 113. Belongings list completed. Report to LUZ BOOKER.
--- NOTE | 2016-12-14 15:55 | NUR ---
PT CAME TO UNIT AAOX4 AND SHOWS NO S/S OF DISTRESS ON ROOM AIR. PT IS PALE AND COOL. PT IS SOILED WITH FOUL ODOR SMELL. PT SACRAL DRESSING IS SOILED. PT WAS GIVEN WOUND CARE AND DRESSING CHANGED. PT HAS NOTED CLEAN DRY AND INTACT DRESSING ON THE R HEEL AND LEFT ANKLE AND LEG. PT HAS GAUZE ON PENIS. PT HAS SUPRAPUBIC CATHETER WITH 100 CC OF CLOUDY NORRIS URINE. PT HAS NOTED WOUND ON THE ABD OPEN TO AIR. DRESSING WAS PLACE ON LOWER ABD WOUND. PT ALSO HAS WOUND ON THE BIG TOE JOHN. IV NOTED ON THE L AC. PT ABD IS LARGE AND ROUND. PT STATES HE FEELS COLD AND TIRED. PT V/S WERE CHECKED BP 67/39, HR 69, O2 SAT 100%, RESPIRATIONS 20, TEMP IS 96.0 F.
--- NOTE | 2016-12-14 16:15 | NUR ---
PT PLACED ON [place] PT IS AAOX4. BP IS 60/34, HR 70, RESP 18, PT DENIES SOB AND CHEST PAIN. DARLENE ESCOBAR AWARE AND DR RUIZ AWARE.
[2016-12-14 16:19] LABS: AMPHETAMINE, URINE NEG. ng/ml (NEG <=1000); BARBITURATE, URINE NEG. ng/ml (NEG <=200); BENZODIAZEPINE, URINE NEG. ng/mL (NEG <=200); CANNABINOID, URINE NEG. ng/mL (NEG <=50); COCAINE, URINE NEG. ng/mL (NEG <=300); OPIATE, URINE NEG. ng/mL (NEG <=2000); PHENCYCLIDINE SCREEN,URINE NEG. ng/mL (NEG <=25)
[2016-12-14] MEDS ORDERED: NACL 0.9% 1,000 ML IV SCH (16:20)
--- NOTE | 2016-12-14 16:20 | NUR ---
RECEIVED ORDERS TO GIVE ND BOLUS TO PT. PT BLOOD PRESSURE IS 63/36, HR 69, RESP 18, O2 SAT 100%. PT IS AAOX4 AND SHOWS NO S/S OF DISTRESS ON ROOM AIR. PT SEEN BY DR RUIZ. AWARE OF PT BP'S. STATES TO CONTINUE MONITORING ON TELE UNIT AND NOT TRANSFER TO ICU.
--- NOTE | 2016-12-14 16:30 | NUR ---
PT BP IS 67/35, HR 72, RESP 16, O2 SAT IS 100%. PT STILL STATES HE FEELS COLD AND TIRED. IVF BOLUS IS INFUSING WELL. WILL CONTINUE TO MONITOR.
[2016-12-14 16:31] LABS: CHOL/HDL RATIO 2.5 (1-4.5); FREE T4 (FREE THYROXINE) 1.05 ng/dL (0.76-1.46); MAGNESIUM 1.7 mg/dL (1.8-2.4); PHOSPHORUS 6.7 mg/dL (2.5-4.9); THYROID STIMULATING HORMONE 5.87 uIU/mL (0.34-3.74)
--- NOTE | 2016-12-14 16:45 | NUR ---
PT BP IS 76/52, RESP 17, HR 68, O2 SAT IS 100% PT IS AAOX4 AND SHOWS NO S/S OF DISTRESS. PT IS STILL IN [place] POSITION. IS AWARE OF BP'S. DR RUIZ STATES TO CONTINUE MONITOR PT'S BLOOD PRESSURE ON TELE UNIT.
[2016-12-14] MEDS: NACL 0.9% 1,000 ML IV SCH ×2 (16:51→19:55)
--- NOTE | 2016-12-14 17:15 | NUR ---
ABG DRAWN ON LB WITHOUT INCIDENT ON ROOM AIR, AND AT 1725 ABG RESULTS WERE GIVEN TO DR. RUIZ
[2016-12-14 17:27] LABS: BLOOD GAS HCO3 6.7 mmol/L; BLOOD GAS PH 7.238 (7.35-7.45); BLOOD GAS PO2 132.5 mmHg
[2016-12-14 17:28] LABS: BLOOD GAS BASE EXCESS -18.9 mmol/L (-2.0-2.0); BLOOD GAS O2 SAT% 98.1 % (92.0-98.5)
--- NOTE | 2016-12-14 17:30 | NUR ---
PT BP IS 75/44, HR 64, RESP 16, O2 SAT IS 100%, PT IS AAOX4 AND SHOWS NO S/S OF DISTRESS ON ROOM AIR. DR RUIZ IS AWARE OF PT'S CONDITION.
[2016-12-14] MEDS ORDERED: SENNA 8.6 MG TAB PO PRN (17:35)
--- NOTE | 2016-12-14 17:45 | NUR ---
PT BP IS 70/43, HR 68, O2 SAT 100%, RESP 15, PT IS AAOX4 AND SHOWS NO S/S OF DISTRESS ON ROOM AIR.
--- NOTE | 2016-12-14 18:00 | NUR ---
BP 74/42, HR 70, RESP 15, O2 SAT 100% PT IS AAOX4 AND SHOWS NO S/S OF DISTRESS ON ROOM AIR.
--- NOTE | 2016-12-14 18:15 | NUR ---
PT BP 75/45, HR 69, O2 SAT 100% PT IS AAOX 4 AND SHOWS NO S/S OF DISTRESS ON ROOM AIR. DR RUIZ IS AWARE OF BP AND STATES HE GAVE REPORT TO BONDACTOR MACHINE OPERATOR DR AND THAT THEY ARE AWARE OF PT'S CONDITION.
--- NOTE | 2016-12-14 18:30 | NUR ---
PT BP IS 76/49, HR 66, O2 SAT 100%, PT IS AOX4 AND DROWSY AND EASILY AROUSABLE. WILL CONTINUE TO MONITOR.
--- NOTE | 2016-12-14 18:45 | NUR ---
PT BP 79/39, HR 73, O2 SAT 100%, RESPIRATION 20. PT IS AOX4 AND SHOWS NO S/S OF DISTRESS ON ROOM AIR.
--- NOTE | 2016-12-14 19:03 | NUR ---
SPOKE WITH DR SOTO REGARDING NS 1 LITER BOLUS FINISHED AND BP IS 79/39, HR 73, O2 SAT 100%. DR ASKED TO WAIT AND RECHECK BP IN 20 MINUTES. WILL REASSESS AT 1923.
[2016-12-14] MEDS ORDERED: FOAM DRESSING TP PRN (19:10)
[2016-12-14] MEDS ORDERED: SKINTEGRITY HYDROGEL TP PRN (19:10)
--- NOTE | 2016-12-14 19:19 | NUR ---
SPOKE WITH DR SOTO REGARDING BP OF 65/38 AND RECHECKED BP IS 69/47. VERBALIZED "OKAY"
--- NOTE | 2016-12-14 19:25 | NUR ---
ACETYLENE TORCH BURNER WAS NOTIFIED OF PT'S CONDITION AND RECOMMENDATION TO BE TRANSFERRED TO ICU. DR SOTO AND RESIDENTS AT BEDSIDE ASSESSING PT. PT IS DROWSY, EASILY AROUSABLE AND AOX4. PT IS PALE AND COLD. PT IS BEING TRANSFERRED TO ICU ORDERED BY DR SOTO. PT REPORT WAS GIVEN TO ICU NURSE. NURSE VERBALIZED UNDERSTANDING OF PT'S CONDITION.
--- NOTE | 2016-12-14 19:26 | NUR ---
PATIENT TRANSFER TO ICU IN PROGRESS FOR HYPOTENSIVE STATUS NO SOB NOTED STOCK LETTERER TO ATTEMPT HHN THERAPY AT A LATER TIME
--- NOTE | 2016-12-14 19:30 | NUR ---
RECEIVED PATIENT FORM TELE FLOOR ROOM 113, PT IS AAOX4, STATELESS SPEAKING, ABLE TO FOLLOW COMMANDS AND MAKE NEEDS KNOWN, DENIES PAIN, VSS. BP 109/45 AT THIS TIME, NO SOB/DISTRESS, BREATHING EVEN AND UNLABORED, CLEAR LUNG SOUNDS, ON RA, O2 SAT AT 100%, DENIES CHEST PAIN, SR ON BESSEMER BOTTOM MAKER, SOFT ABDOMEN WITH ACTIVE BOWEL SOUNDS, SUPRAPUBIC CATHETER IN PLACE WITH CLOUDY YELLOW URINE NOTED, DIARRHEA NOTED, SKIN IS PALE IN COLOR, WARM AND COOL IN TOUCH, MULTIPLE OPEN WOUND NOTED (SEE WOUND ASSESSMENT), IV SITE TO LEFT AC 20GA, RUNNING NS AT 120ML/HR. GENERALIZED WEAKNESS TO ALL EXTREMITIES, ORIENTATED ROOM AND EXPLAINED PLAN OF CARE TO PT, PT VERBALIZED UNDERSTANDING, SAFETY MEASURES MAINTAINED, POSITION CHANGED FOR OFF LOAD PRESSURE, CALL LIGHT WITHIN REACH, WILL CONTINUE TO MONITOR.
[2016-12-14] MEDS: ALBUTEROL SULFATE/IPRATROPIU 3 ML SOL IH SCH ×2 (19:52→23:26)
--- NOTE | 2016-12-14 20:10 | NUR ---
REVIEWED PATIENT'S LAB RESULTS AND NOTED THAT MG LEVEL IS ONLY 1.7 AND PATIENT IS HAVING OCCASIONAL PAC'S AND PVC'S; REFERRED TO DR. SOTO, WITH NEW ORDER, CARRIED OUT.
--- NOTE | 2016-12-14 20:10 | NUR ---
DR. SOTO CAME IN TO EVALUATE PATIENT, NO NEW ORDER AT THIS TIME, PT'S BP DROP TO 76/42.
[2016-12-14] MEDS ORDERED: MAG SULF 2000 MG/WATER PREMIX 50 ML IV SCH (20:35)
[2016-12-14] MEDS: LATANOPROST 0.005% OP 2.5 ML BTL OP SCH (21:00)
[2016-12-14] MEDS ORDERED: PANTOPRAZOLE 40 MG TABEC PO SCH (21:00)
[2016-12-14] MEDS: NEOMYCIN 500 MG TAB PO SCH (21:00)
[2016-12-14] MEDS: INSULIN DETEMIR 100 UNITS/ML 10 ML VIAL SUBQ SCH (21:00)
--- NOTE | 2016-12-14 21:00 | NUR ---
ACCU CHECK PERFORMED WITH 103 MG/DL, PER DR. SOTO, WILL HOLD LEVEMIR 15 UNITS TONIGHT.
[2016-12-14] MEDS ORDERED: PIPERACILLIN/TAZOBACTAM 2.25 GM VIAL IV ONE (21:20)
[2016-12-14] MEDS: ASCORBIC ACID 500 MG TAB PO SCH (21:22)
[2016-12-14] MEDS: SIMVASTATIN 20 MG TAB PO SCH (21:23)
[2016-12-14] MEDS: PIPER/TAZO 2.25GM/D5W PREMIX 50 ML IV SCH (21:23)
--- NOTE | 2016-12-14 21:40 | NUR ---
PER DR. SOTO, KEEP MAP BETWEEN 60-65 MMHG.
[2016-12-14] MEDS ORDERED: LORazepam 2 MG/ML VIAL IVP SCH (21:50)
--- NOTE | 2016-12-14 21:50 | NUR ---
BP DROP TO 73/48, DR. SOTO MADE AWARE, WILL ORDER LEVOPHED.
[2016-12-14] MEDS ORDERED: NOREPINEPHRINE 4 MG/4 ML VIAL IV ONE (22:03)
[2016-12-14] MEDS: NOREPINEPHRINE 8 MG in DEXTROSE 5% 250 ML IV PRN (22:15)
--- NOTE | 2016-12-14 22:15 | NUR ---
NEOMYCIN IS NOT AVAILABLE AT THIS TIME, DR. SOTO MADE AWARE, IT IS OK NOT GIVEN IT TONIGHT.
[2016-12-15] VITALS (101 sets, daily range): BP systolic 59–166; BP diastolic 29–100
--- NOTE | 2016-12-15 | NUR ---
PT IS DROWSY, ON LEVOPHED DRIP, NO S/S OF DISTRESS, POSITION CHANGED FOR OFF LOAD PRESSURE.
[2016-12-15] MEDS: THERAHONEY WOUND DRESSING TP SCH ×2 (01:20→13:00)
[2016-12-15] MEDS: Z-GUARD PASTE TP SCH ×2 (01:20→13:00)
[2016-12-15] MEDS: SODIUM BICARBONATE 8.4% 150 MEQ in DEXTROSE 5% 1,000 ML IV SCH ×2 (02:00→20:00)
--- NOTE | 2016-12-15 02:00 | NUR ---
NO CHANGE OF CONDITION AT THIS TIME, PT IS SLEEPING IN BED, STILL ON LEVOPHED DRIP, VSS.
--- NOTE | 2016-12-15 03:25 | NUR ---
RN'S AT BEDSIDE FOR PATIENT PHYSICAL HYGIENE AND REPOSITION NO SOB NOTED STAFF OCCUPATIONAL THERAPIST TO ATTEMPT HHN THERAPY AT A LATER TIME
[2016-12-15] MEDS: ALBUTEROL SULFATE/IPRATROPIU 3 ML SOL IH SCH (03:45)
[2016-12-15] MEDS: NACL 0.9% 1,000 ML IV SCH (03:45)
--- NOTE | 2016-12-15 04:00 | NUR ---
AM CARE PROVIDED, PT HAD A SMALL LIQUID GREENISH STOOL, TAWANDA CARE PROVIDED, SUPRAPUBIC CATHETER CARE PROVIDED, WOUND DRESSING CHANGED, POSITION CHANGED FOR OFF LOAD PRESSURE.
[2016-12-15 04:53] LABS: BASOPHILS % (AUTO) 0.3 % (0.0-2.0); EOSINOPHILS # (AUTO) 0.2 K/uL (0-0.4); EOSINOPHILS % (AUTO) 1.3 % (0.0-4.0); HEMATOCRIT 23.7 % (36-52); HEMOGLOBIN 7.6 g/dL (12.0-18.0); LYMPHOCYTES # (AUTO) 0.2 K/uL (2.0-11.5); LYMPHOCYTES % (AUTO) 1.3 % (20.5-51.1); MEAN CORPUSCULAR HEMOGLOBIN 28 pg (27-31); MEAN CORPUSCULAR HGB CONC 32 g/dL (33-37); MEAN CORPUSCULAR VOLUME 86 fL (80-94); MONOCYTES # (AUTO) 0.5 K/uL (0.8-1.0); MONOCYTES % (AUTO) 3.6 % (1.7-9.3); NEUTROPHILS # (AUTO) 13.7 K/uL (1.8-7.7); NEUTROPHILS % (AUTO) 93.5 % (42.2-75.2); PLATELET COUNT (AUTO) 98 K/uL (140-450); RED BLOOD CELL COUNT(AUTO) 2.76 MIL/uL (4.20-6.10); RED CELL DISTRIBUTION WIDTH 17.5 % (11.6-13.7); WHITE BLOOD COUNT (AUTO) 14.6 K/uL (4.8-10.8)
[2016-12-15] MEDS ORDERED: PIPERACILLIN/TAZOBACTAM 2.25 GM VIAL IV ONE (05:10)
[2016-12-15] MEDS: PIPER/TAZO 2.25GM/D5W PREMIX 50 ML IV SCH ×3 (05:13→20:57)
[2016-12-15 05:51] LABS: CALCIUM 7.3 mg/dL (8.5-10.1); PHOSPHORUS 7.2 mg/dL (2.5-4.9)
--- NOTE | 2016-12-15 06:00 | NUR ---
PT IS ASLEEP IN BED, NO S/S OF DISTRESS, STILL ON LEVOPHED DRIP, POSITION CHANGED FOR OFF LOAD PRESSURE.
--- NOTE | 2016-12-15 06:16 | NUR ---
ABG DRAWN ON RB WITHOUT INCIDENT AND RESULTS READ BACK TO DR. SOTO AT 0625 WITH CHANGES MADE TO BREATHING TX TO CHANGE TO [id number] LUZ GILBERT NOTIFIED OF CHANGES
[2016-12-15 06:17] LABS: ANION GAP 20.4 (8-16); POTASSIUM 4.1 mmol/L (3.5-5.1)
[2016-12-15 06:20] LABS: CARBON DIOXIDE 8.7 mmol/L (21-32)
[2016-12-15 06:22] LABS: BLOOD GAS BASE EXCESS -20.1 mmol/L (-2.0-2.0); BLOOD GAS HCO3 6.5 mmol/L; BLOOD GAS O2 SAT% 98.3 % (92.0-98.5); BLOOD GAS PCO2 18.2 mmHg (20-50); BLOOD GAS PH 7.173 (7.35-7.45); BLOOD GAS PO2 141.1 mmHg
[2016-12-15] MEDS: BLOOD GLUCOSE MONITORING 1 DEV DEV FS SCH ×4 (06:49→20:54)
[2016-12-15] MEDS ORDERED: NACL 0.9% 1,000 ML IV ONE ×2 (07:00→14:00)
--- NOTE | 2016-12-15 07:00 | NUR ---
DR. NAVARRO CAME IN ASSESS PT AND DECIDED TO INTUBATED PT, CALLED ER DR. SERVIN TO INTUBATE PATIENT. Addendum: 12/15/16 at 0745 by Madyson Hanson RN SODIUM BICARBONATE X2 IV PUSH GIVEN DR. NAVARRO ORDERED.
[2016-12-15] MEDS ORDERED: SODIUM BICARBONATE 8.4% PFS 50 MEQ/50 ML SYR IVP ONE ×3 (07:05→07:11)
--- NOTE | 2016-12-15 07:10 | NUR ---
CALLED TO PT'S BEDSIDE TO INTUBATE PT DUE TO ABG RESULTS PER DR. Antonio NAVARRO, AT 072O PT WAS INTUBATED WITH 7.5 ET TUBE AT 25 CM AT RIGHT CORNER OF MOUTH. VENT SETTINGS AC12 VT 500 PEEP 5 FIO2 40% TO KEEP O2 SAT ABOVE 92% ALARMS ON AND FUNCTIONING PROPERLY, AMBU BAG AT BEDSIDE B\S ARE CLEAR AND DIMINISHED BILATERALLY, ABG FOR 0930
--- NOTE | 2016-12-15 07:20 | NUR ---
REPORT GIVEN TO NIGHT NURSE FOR CONTINUITY OF CARE. PATIENT IN STABLE CONDITION. Addendum: 12/15/16 at 1950 by Angela Daniels RN FOR 1929 END OF SHIFT REPORT
--- NOTE | 2016-12-15 07:20 | NUR ---
DR. SERVIN CAME, PRE INTUBATION MEDS SUCCINYL 100 MG AND ETOMIDATE 20 MG GIVEN, RT AT BEDSIDE, DR. NAVARRO AT BEDSIDE. FANCY WIRE DRAWER LEIGH ANN FROM LAB AT BEDSIDE EXPLAINED THE PROCEDURE, DR. SERVIN INTUBATED PATIENT.
--- NOTE | 2016-12-15 07:26 | NUR ---
RECEIVED REPORT FROM NIGHT RN FOR CONTINUITY OF CARE.
[2016-12-15] MEDS ORDERED: ETOMIDATE 20 MG/10 ML VIAL IVP SCH (07:30)
[2016-12-15] MEDS ORDERED: SUCCINYLCHOLINE CHLORIDE 200 MG/10 ML VIAL IVP SCH ×2 (07:30→10:59)
--- NOTE | 2016-12-15 07:30 | NUR ---
DR. BOSE AND RESIDENTS PHYSICIAN IN AND SEEN PATIENT, WILL FOLLOW UP ORDERS
--- NOTE | 2016-12-15 07:30 | NUR ---
DR. SOTO REPORTED TO PT'S JOSE CRUZ KOCH AND UPDATED PT'S MEDICAL CONDITION.
--- NOTE | 2016-12-15 07:30 | NUR ---
PATIENT IS AWAKE, ABLE TO FOLLOW SIMPLE COMMANDS, WITH ETT TO VENT AT THIS TIME. PERIPHERAL IV L AC PATENT AND INTACT TO LEVOPHED AT 18 MCG. SKIN COOL TO TOUCH WNL THICKENED YELLOW TOENAILS, +2 PITTING EDEMA, WITH FINE HAIR GROWTH AND UNABLE TO PALPATE PEDAL PULSES AT THIS TIME. WILL CONTINUE TO MONITOR PATIENT.
--- NOTE | 2016-12-15 07:36 | NUR ---
REPORT GIVEN TO LUZ MORROW AT BEDSIDE FOR CONTINUE OF CARE.
[2016-12-15] MEDS: CALCIUM ACETATE 667 MG TAB PO SCH ×2 (08:00→17:00)
[2016-12-15] MEDS ORDERED: LORazepam 2 MG/ML VIAL IVP SCH (08:25)
[2016-12-15] MEDS ORDERED: fentaNYL 1 MG in NACL 0.9% 80 ML IV PRN (08:30)
--- NOTE | 2016-12-15 08:40 | NUR ---
VENT CHECK, SXN PT NO RETURN PULLED BACK ET TUBE TO 21CM AND RETAPED AT RIGHT CORNER OF MOUTH STAT XRAY ORDERED ABG DRAWN ON LB WITHOUT INCIDENT
--- NOTE | 2016-12-15 08:45 | NUR ---
dr. sheffield and dr. lipscomb and dr. mensah at bedside for insertion of central line then dr. hodgson placed the central line done at 1030
[2016-12-15 08:56] LABS: BLOOD GAS HCO3 8.4 mmol/L; BLOOD GAS PCO2 20.5 mmHg (20-50); BLOOD GAS PH 7.231 (7.35-7.45); BLOOD GAS PO2 207.8 mmHg
[2016-12-15 08:57] LABS: BLOOD GAS BASE EXCESS -17.4 mmol/L (-2.0-2.0); BLOOD GAS O2 SAT% 99.2 % (92.0-98.5)
--- NOTE | 2016-12-15 08:58 | NUR ---
DENNISE REPORTED TO DR NAVARRO
[2016-12-15] MEDS: INSULIN DETEMIR 100 UNITS/ML 10 ML VIAL SUBQ SCH ×2 (09:00→20:58)
[2016-12-15] MEDS: LACTOBACILLUS RHAMNOSUS GG 1 EACH CAP PO SCH (09:00)
[2016-12-15] MEDS: NEOMYCIN 500 MG TAB PO SCH ×4 (09:00→21:15)
[2016-12-15] MEDS: LACTULOSE 20 GM/30 ML UDC PO SCH ×3 (09:00→17:00)
[2016-12-15] MEDS: ASCORBIC ACID 500 MG TAB PO SCH ×2 (09:00→20:55)
[2016-12-15] MEDS: VIT-B COMP/VIT-C/FOLIC ACID 1 TAB PO SCH (09:00)
[2016-12-15] MEDS ORDERED: MULTIVITAMIN 1 TAB PO SCH (09:00)
[2016-12-15] MEDS ORDERED: LACTOBACILLUS RHAMNOSUS GG 1 EACH CAP PO SCH (09:00)
[2016-12-15] MEDS ORDERED: MULTIVITAMIN/MINERALS 1 TAB PO SCH (09:00)
[2016-12-15] MEDS: ECOTRIN 81 MG TABEC PO SCH (09:00)
--- NOTE | 2016-12-15 09:00 | NUR ---
DR. REYNAGA IN AND SEEN PATIENT. WILL FOLLOW UP WITH ORDERS.
[2016-12-15] MEDS ORDERED: DOPamine 400 MG/D5W PREMIX 250 ML IV ONE (09:12)
--- NOTE | 2016-12-15 09:13 | NUR ---
PATIENT HAS BEEN SCREENED AND CATEGORIZED HIGH NUTRITION RISK. PATIENT WILL BE SEEN WITHIN 1-2 DAYS OF ADMISSION. 12/15/16-12/16/[address]
[2016-12-15] MEDS: NOREPINEPHRINE 4 MG in DEXTROSE 5% 250 ML IV PRN ×2 (09:16→12:47)
[2016-12-15 09:21] LABS: T4 (THYROXINE) 3.3 ug/dL (4.5-12.0)
[2016-12-15] MEDS ORDERED: VANCOMYCIN PER PHARMACY MC PRN (09:30)
[2016-12-15] MEDS: PANTOPRAZOLE 40 MG INJ VIAL IVP SCH (09:45)
[2016-12-15] MEDS: SKINTEGRITY HYDROGEL TP SCH (10:20)
[2016-12-15] MEDS ORDERED: ETOMIDATE 20 MG/10 ML VIAL IVP ONE (10:45)
--- NOTE | 2016-12-15 10:50 | NUR ---
ER DR AT BEDSIDE TO CHANGE ET TUBE. ETOMIDATE 20 MG AND SUCCINYLCHOLINE 100 MG GIVEN ORDERED. TOLERATED WELL. PROCEDURE TOLERATED WELL. NO ISSUES NOTED. WILL CONTINUE TO MONITOR FOR CHANGES. XRAY CONTACTED FOR PLACEMENT CHECK.
--- NOTE | 2016-12-15 10:51 | NUR ---
vent check, sxn pt no return of secretions, b\s are clear, reintubated pt at 1051 by with 7.5 et tube at 21 cm at right corner of mouth with stat xray for tube placement
[2016-12-15] MEDS ORDERED: VANCOMYCIN 1,500 MG in NACL 0.9% 250 ML IV SCH (11:05)
--- NOTE | 2016-12-15 11:20 | NUR ---
RECEIVED A CALL FROM [employer] FOR CRITICAL LAB (BLOOD CULTURE). RESIDENT PHYSICIAN DR NAVARRO MADE AWARE. WILL FOLLOW UP ORDERS.
[2016-12-15] MEDS ORDERED: PROBIOTIC SCREEN 1 EA MISC MC PRN (11:40)
[2016-12-15] MEDS ORDERED: NACL 0.9% 500 ML IV SCH (12:10)
--- NOTE | 2016-12-15 12:20 | NUR ---
VENT CHECK, SXN PT FOR C&S MODERATE AMT OF BRIGHT RED BLOOD SECRETIONS THIN B\S ARE CLEAR. SISTER AT BEDSIDE
[2016-12-15] MEDS ORDERED: LIDOCAINE/EPI 1% 1:100000 20 ML VIAL INJ ONE (12:30)
[2016-12-15] MEDS: LIDOCAINE 1% 500 MG/50 ML VIAL INJ SCH (12:32)
--- NOTE | 2016-12-15 12:36 | NUR ---
12/15/16 RD INITIAL ASSESSMENT COMPLETED PLEASE REFER TO NUTRITION ASSESSMENT UNDER CARE ACTIVITY FOR ESTIMATED NUTRITIONAL NEEDS. 1. IF PT TO REMAIN INTUBATED, CONSIDER NGT PLACEMENT FOR ENTERAL NUTRITION SUPPORT - NOVASOURCE TO START SLOW AT 30 ML/HR, ADVANCE 10 ML Q8H TO A GOAL RATE OF 40 ML/HR (PROVIDES 1920 KCAL, 87 G PROTEIN, 688 ML FREE WATER - MEETS 100% KCAL + 69% PROTEIN ESTIMATED NEEDS) 2. IF PT TO BE EXTUBATED, CONSIDER INITIATING PO DIET - TO START ON CLEAR LIQUID DIET AND ADVANCE TOLERATED TO RENAL, 75 G CONSISTENT CARBOHYDRATE DIET 3. CONTINUE VITAMIN C SUPPLEMENTATION 1X/DAILY 4. RD TO FOLLOW-UP 2-3 DAYS; HIGH RISK PARAMJIT GALVAN RD
[2016-12-15] MEDS: DRY DRESSING TP SCH (13:00)
[2016-12-15 13:07] LABS: LACTIC ACID 0.7 mmol/L (0.4-2.0)
--- NOTE | 2016-12-15 13:21 | NUR ---
ABG DRAWN ON RB WITHOUT INCIDENT AND AT [address] PUCKETT WITH NO CHANGES
--- NOTE | 2016-12-15 13:31 | NUR ---
DENNISE REPORTED TO DR PUCKETT
[2016-12-15 13:37] LABS: BLOOD GAS PH 7.136 (7.35-7.45)
[2016-12-15 13:38] LABS: BLOOD GAS BASE EXCESS -20.1 mmol/L (-2.0-2.0); BLOOD GAS HCO3 7.3 mmol/L; BLOOD GAS O2 SAT% 98.7 % (92.0-98.5); BLOOD GAS PO2 163.1 mmHg
[2016-12-15] MEDS ORDERED: SODIUM BICARBONATE 8.4% PFS 50 MEQ/50 ML SYR IVP SCH ×3 (14:00→16:57)
[2016-12-15 14:08] LABS: HEMOGLOBIN A1C 7.9 % (4.8-5.6)
[2016-12-15 14:51] LABS: ANION GAP 19.5 (8-16); CARBON DIOXIDE 10.1 mmol/L (21-32); CREATININE 3.7 mg/dL (0.7-1.3); POTASSIUM 3.6 mmol/L (3.5-5.1)
--- NOTE | 2016-12-15 15:00 | NUR ---
LAB CALLED IN FOR CRITICAL BUN RESULT, RESIDENT PHYSICIAN DR. PUCKETT MADE AWARE.
--- NOTE | 2016-12-15 15:15 | NUR ---
vent check, sxn pt small amt of pale blood tint secretions, b\s are clear and pt is awake with no signs of distress noted at this time
[2016-12-15] MEDS ORDERED: SODIUM BICARBONATE 8.4% 50 MEQ/50 ML VIAL INJ SCH (16:45)
--- NOTE | 2016-12-15 16:59 | NUR ---
vent check, sxn pt large amt of bright red bloody secretions, b\s are clear and pt is resting
[2016-12-15] MEDS ORDERED: FENTANYL IV PRN (17:30)
[2016-12-15] MEDS ORDERED: NACL 0.9% IV PRN (17:30)
[2016-12-15] MEDS: NOREPINEPHRINE 8 MG in DEXTROSE 5% 250 ML IV PRN (17:37)
[2016-12-15] MEDS ORDERED: INSULIN LISPRO SLIDING SCALE 100 UNITS/ML VIAL SUBQ PRN (17:55)
[2016-12-15] MEDS ORDERED: DEXTROSE 50% 50 ML SYR IVP PRN (17:55)
[2016-12-15] MEDS: ALBUMIN HUMAN 25% 100 ML IV SCH ×2 (18:23→22:07)
--- NOTE | 2016-12-15 18:57 | NUR ---
RCV'D PT ON MV WITH 7.5 ETT AT 21 AT LIP. SETTINGS ARE AC 12,500,5,40%. ETT IN PLACE AND SECURED AT RIGHT SIDE OF MOUTH. VENT IS CONNECTED TO RED OUTLET. ALARMS ARE AUDIBLE. AMBU BAG AT BEDSIDE. SXN'D SMALL AMT OF THIN RED SECRETIONS. NO SOB OR DISTRESS NOTED. WILL CONTINUE TO MONITOR.
--- NOTE | 2016-12-15 18:59 | NUR ---
DECREASED FIO2 TO 30%. SPO2 IS TILL 100% WILL CONTINUE TO MONITOR.
--- NOTE | 2016-12-15 19:30 | NUR ---
RECEIVED REPORT FORM CRISTHIAN RN AT BEDSIDE, PT IS AAOX4, APHASIC DUE TO ETT TO VENT, ABLE TO FOLLOW COMMANDS WITH KNOCK HEAD, DENIES PAIN, VSS. ON ETT TO VENT WITH SETTING FIO2 30, AC 12, 500, 5, NO SOB/DISTRESS, BREATHING EVEN AND UNLABORED, CLEAR LUNG SOUNDS, O2 SAT AT 100%, DENIES CHEST PAIN, SR ON ASPNET DEVELOPER, NG TUBE TO RIGHT NARE WITH POSITIVE PLACEMENT OF AUSCULTATION, 0 RESIDUAL, ROUND ABDOMEN WITH ACTIVE BOWEL SOUNDS, SUPRAPUBIC CATHETER IN PLACE WITH CLOUDY YELLOW URINE NOTED, SKIN IS PALE IN COLOR, WARM AND COOL IN TOUCH, MULTIPLE OPEN WOUND NOTED (SEE WOUND ASSESSMENT), CENTRAL LINE TO RIGHT IJ TLC, PATENT TO EACH LUMEN, RUNNING LEVOPHED AT 14 MCG/MIN, ALBUMIN AT 50 ML/HR, CVP 8, PERIPHERAL IV SITE TO LEFT AC 20GA, RUNNING FENTANYL AT 5ML/HR, LEFT HAND 22GA RUNNING NS AT 150ML/HR, RIGHT HAND 20GA RUNNING DOPAMINE AT 5 MCG/MIN, SEVERER WEAKNESS TO ALL EXTREMITIES, HEAD ELEVATED 30 DEGREES, SAFETY MEASURES MAINTAINED, POSITION CHANGED FOR OFF LOAD PRESSURE, ORAL CARE PROVIDED, CALL LIGHT WITHIN REACH, WILL CONTINUE TO MONITOR.
--- NOTE | 2016-12-15 19:40 | NUR ---
Eren MYERS CAME IN TO CHECK PATIENT, WILL REPORT TO HIM WHEN OBTAINED THE NEW ABG RESULT.
[2016-12-15 20:20] LABS: BLOOD GAS BASE EXCESS -14.4 mmol/L (-2.0-2.0); BLOOD GAS HCO3 11.3 mmol/L; BLOOD GAS PCO2 26.2 mmHg (20-50); BLOOD GAS PH 7.254 (7.35-7.45); BLOOD GAS PO2 129.1 mmHg
[2016-12-15 20:27] LABS: ANION GAP 18.9 (8-16); CALCIUM 6.9 mg/dL (8.5-10.1); CARBON DIOXIDE 12.3 mmol/L (21-32); CREATININE 3.6 mg/dL (0.7-1.3); POTASSIUM 3.2 mmol/L (3.5-5.1)
[2016-12-15] MEDS: DOPamine 400 MG/D5W PREMIX 250 ML IV PRN (20:35)
--- NOTE | 2016-12-15 20:35 | NUR ---
ABG DONE WITHOUT INCIDENT. PT IS AWAKE AND ALERT. RESULTS GIVEN OVER PHONE TO DR LOVE. VENT CHECK DONE. WILL CONTINUE TO MONITOR.
--- NOTE | 2016-12-15 20:45 | NUR ---
ACCU CHECK DONE WITH RESULT OF 225 MG/DL, WILL GIVE 4 UNITS OF HUMALOG AND LEVEMIR ORDERED.
[2016-12-15] MEDS: SIMVASTATIN 20 MG TAB PO SCH (20:55)
[2016-12-15] MEDS: INSULIN LISPRO SLIDING SCALE 100 UNITS/ML VIAL SUBQ PRN (20:59)
[2016-12-15] MEDS: LATANOPROST 0.005% OP 2.5 ML BTL OP SCH (21:00)
[2016-12-15] MEDS ORDERED: BLOOD GLUCOSE MONITORING 1 DEV DEV FS SCH (21:00)
--- NOTE | 2016-12-15 21:00 | NUR ---
SCHEDULED MEDICATION GIVEN VIA NGT, PATIENT TOLERATED WELL. Eren MYERS CAME IN TO CHECK PATIENT'S OUTPUT, CURRENTLY OUTPUT FROM 6P-9P IS 80ML, ORDERED TO CONTINUE RECORD THE URINE OUTPUT.
[2016-12-15] MEDS ORDERED: KCL 20 MEQ/WATER INJ PREMIX 200 ML IV SCH (21:20)
--- NOTE | 2016-12-15 21:40 | NUR ---
DR. NAVARRO CALLED ASKING PT'S CONDITION AND URINE OUTPUT, ORDERED TO GIVE 2ND DOSE OF ALBUMIN NOW WHICH IS SCHEDULED AT 5AM TOMORROW, WILL CARRY THE ORDER.
--- NOTE | 2016-12-15 22:30 | NUR ---
PT IS WATCHING TV, NO S/S OF DISTRESS, DENIES PAIN, VSS, POSITION CHANGED FOR OFF LOAD PRESSURE.
--- NOTE | 2016-12-15 23:02 | NUR ---
VENT CHECK DONE. SXN'D SMALL AMT OF RED BLOODY SECRETIONS. NO SOB OR DISTRESS NOTED. SPO2 IS 100% OF 30% FIO2. VENT IS PLUGGED INTO RED OUTLET. ALARMS ARE AUDIBLE. AMBU BAG AT BEDSIDE. PT IS AWAKE AND ALERT. WILL CONTINUE TO MONITOR.
[2016-12-16] VITALS (107 sets, daily range): BP systolic 65–127; BP diastolic 23–102
--- NOTE | 2016-12-16 | NUR ---
PT IS AWAKE, TRYING TO PULL OUT THE ETT TUBE, DR. MCLEOD MADE AWARE. EXPLAINED THE RISK AND BENEFIT OF ETT TUBE, PT KNOCKED HIS HEAD BY SHOWING UNDERSTANDING. VSS. NO S/S OF DISTRESS, POSITION CHANGED FOR OFF LOAD PRESSURE.
--- NOTE | 2016-12-16 00:35 | NUR ---
RECEIVED PT ON THE SAME VENT SETTINGS, ALARMS ON, VITALS STABLE, BS ARE BILAT CLEAR, NO DISTRESS NOTES
[2016-12-16] MEDS: MORPHINE SULFATE 2 MG/ML SYR IVP PRN (00:51)
[2016-12-16] MEDS: Z-GUARD PASTE TP SCH ×2 (01:00→15:00)
[2016-12-16] MEDS: THERAHONEY WOUND DRESSING TP SCH ×2 (01:00→13:00)
[2016-12-16] MEDS: SODIUM BICARBONATE 8.4% 150 MEQ in DEXTROSE 5% 1,000 ML IV SCH ×3 (02:00→09:09)
[2016-12-16] MEDS ORDERED: FUROSEMIDE 100 MG/10 ML VIAL IV SCH ×2 (02:00→09:20)
--- NOTE | 2016-12-16 02:00 | NUR ---
NO CHANGE OF CONDITION AT THIS TIME, PT IS STILL AWAKE, DENIES PAIN, VSS, POSITION CHANGED FOR OFF LOAD PRESSURE.
--- NOTE | 2016-12-16 04:00 | NUR ---
VSS, NO S/S OF DISTRESS, AM CARE PROVIDED, ORAL CARE PROVIDED, POSITION CHANGED FOR OFF LOAD PRESSURE, TAWANDA CARE PROVIDED, WOUND CARE PROVIDED, SUPRAPUBIC CARE PROVIDED, PT TOLERATED WELL. Addendum: 12/16/16 at 0618 by Madyson Hanson RN FOUND TWO ALIVE MAGGOTS TO ABDOMINAL FOLDS AREA, COLLECTED IT INTO A CUP, REPORTED TO SPECIAL EDUCATION TEACHING ASSISTANT AND DR. HINTON MADE AWARE.
[2016-12-16 04:59] LABS: MEAN CORPUSCULAR HEMOGLOBIN 28 pg (27-31); MEAN CORPUSCULAR HGB CONC 33 g/dL (33-37); MEAN CORPUSCULAR VOLUME 85 fL (80-94); PLATELET COUNT (AUTO) 63 K/uL (140-450); RED BLOOD CELL COUNT(AUTO) 2.34 MIL/uL (4.20-6.10); RED CELL DISTRIBUTION WIDTH 17.2 % (11.6-13.7)
[2016-12-16] MEDS: PIPER/TAZO 2.25GM/D5W PREMIX 50 ML IV SCH ×2 (05:03→13:11)
[2016-12-16 05:16] LABS: ANION GAP 15.9 (8-16); CALCIUM 6.9 mg/dL (8.5-10.1); CARBON DIOXIDE 18.6 mmol/L (21-32); CREATININE 3.5 mg/dL (0.7-1.3); POTASSIUM 3.5 mmol/L (3.5-5.1)
[2016-12-16 05:17] LABS: MAGNESIUM 1.7 mg/dL (1.8-2.4); PHOSPHORUS 6.5 mg/dL (2.5-4.9)
--- NOTE | 2016-12-16 05:45 | NUR ---
VENT CK DONE, CHANGED HME, ABG DONE, 7.314, 27.1, 118.3. 13.5, -11.6, 97.7, RN NOTIFIED
[2016-12-16 05:48] LABS: BLOOD GAS HCO3 13.5 mmol/L; BLOOD GAS PCO2 27.1 mmHg (20-50); BLOOD GAS PH 7.314 (7.35-7.45); BLOOD GAS PO2 118.3 mmHg
[2016-12-16 05:49] LABS: HEMATOCRIT 19.8 % (36-52); HEMOGLOBIN 6.5 g/dL (12.0-18.0)
[2016-12-16 05:49] LABS: BLOOD GAS BASE EXCESS -11.6 mmol/L (-2.0-2.0); BLOOD GAS O2 SAT% 97.7 % (92.0-98.5)
--- NOTE | 2016-12-16 05:50 | NUR ---
CRITICAL LAB RESULT REPORTED TO RESIDENT DOCTOR SHANI, WAITING FURTHER INSTRUCTIONS.
[2016-12-16 06:24] LABS: BAND % (MANUAL) 17 % (0-8); EOSINOPHILS % (MANUAL) 5 % (0-4); LYMPHOCYTES % (MANUAL) 2 % (20-46); MONOCYTES % (MANUAL) 3 % (5-12); NEUTROPHILS % (MANUAL) 73 (43-65)
[2016-12-16 06:25] LABS: PLATELET ESTIMATE DECREASED
--- NOTE | 2016-12-16 07:19 | NUR ---
REPORT GIVEN TO LUZ MORROW AT BEDSIDE FOR CONTINUE OF CARE, PT IS IN STABLE CONDITION.
--- NOTE | 2016-12-16 07:26 | NUR ---
REPORT RECEIVED FROM NIGHT RN FOR CONTINUITY OF CARE. PATIENT IN STABLE CONDITION. AWAKE, ABLE TO FOLLOW SIMPLE COMMANDS WITH ETT TO VENT. SUPRAPUBIC CATHETER PATENT AND INTACT TO CLOUDY YELLOW URINE IN MODERATE AMOUNT. RIGHT IJ CENTRAL LINE PATENT AND INTACT. RIGHT DORSAL HAND, LEFT HAND AND LEFT AC PERIPHERAL IV PATENT AND INTACT. SACRALCOCCYGEAL, BLE AND LOWER ABDOMEN DRESSING DRY AND INTACT. PATIENT IS ABLE TO MOUTH WORDS. CALL LIGHT WITHIN REACH. WILL MONITOR PATIENT.
--- NOTE | 2016-12-16 07:30 | NUR ---
RESIDENT PHYSICIAN, DR. RUIZ MADE AWARE OF HGB LEVEL 6.5 AND MAG 1.7. WILL FOLLOW UP.
--- NOTE | 2016-12-16 07:35 | NUR ---
RECEIVED PT STABLE ON VENT SUPPORT AT DOCUMENTED SETTINGS, NO RESP DISTRESS OR SOB NOTED, 7.5 ETT TUBE SECURED WITH ANCHORFAST AT 23 CM AT LIP, SUCTION DE [place] CRUZ CHANGED, ALARMS SET AND AUDIBLE, VENT PLUGGED INTO RED OUTLET, BAG MASK AT BEDSIDE, WILL CONTINUE TO MONITOR.
[2016-12-16] MEDS: BLOOD GLUCOSE MONITORING 1 DEV DEV FS SCH ×4 (08:06→21:46)
[2016-12-16] MEDS: SKINTEGRITY HYDROGEL TP SCH (09:00)
[2016-12-16] MEDS: MIDAZOLAM MDV 50 MG in NACL 0.9% 40 ML IV PRN (09:04)
[2016-12-16] MEDS: NOREPINEPHRINE 8 MG in DEXTROSE 5% 250 ML IV PRN (09:07)
[2016-12-16] MEDS: CALCIUM ACETATE 667 MG TAB PO SCH ×2 (09:12→17:02)
[2016-12-16] MEDS: ECOTRIN 81 MG TABEC PO SCH (09:13)
[2016-12-16] MEDS: PANTOPRAZOLE 40 MG INJ VIAL IVP SCH (09:13)
[2016-12-16] MEDS: LACTULOSE 20 GM/30 ML UDC PO SCH ×3 (09:14→17:02)
[2016-12-16] MEDS: VIT-B COMP/VIT-C/FOLIC ACID 1 TAB PO SCH (09:15)
[2016-12-16] MEDS: LACTOBACILLUS RHAMNOSUS GG 1 EACH CAP PO SCH (09:15)
[2016-12-16] MEDS: ASCORBIC ACID 500 MG TAB PO SCH ×2 (09:15→21:49)
[2016-12-16] MEDS: INSULIN DETEMIR 100 UNITS/ML 10 ML VIAL SUBQ SCH ×2 (09:17→21:52)
[2016-12-16] MEDS: NEOMYCIN 500 MG TAB PO SCH ×4 (09:22→21:48)
[2016-12-16] MEDS: DEXT 5% /NACL 0.9% 1,000 ML IV SCH ×4 (10:48→22:09)
[2016-12-16] MEDS: DOPamine 400 MG/D5W PREMIX 250 ML IV PRN ×2 (10:52→21:39)
[2016-12-16] MEDS: FENTANYL IV SCH ×2 (11:37→20:33)
[2016-12-16] MEDS: NACL 0.9% IV SCH ×2 (11:37→20:33)
--- NOTE | 2016-12-16 12:05 | NUR ---
BRADYCARDIA NOTED AT 37 BPM RESIDENT PHYSICIAN, DR. PUCKETT MADE AWARE. WILL CHECK ON PATIENT.
--- NOTE | 2016-12-16 12:05 | NUR ---
RESIDENT PHYSICIAN, DR. PUCKETT CALLED BACK MADE AWARE OF WOUND CULTURE RESULTS.
[2016-12-16] MEDS: LIDOCAINE 1% 500 MG/50 ML VIAL INJ SCH (12:32)
--- NOTE | 2016-12-16 12:39 | NUR ---
TIME OUT PERFORMED. BEDSIDE DEBRIDEMENT OF BLE WOUNDS OF PODIATRY RESIDENT PHYSICIANS UNDER GOING AT THIS TIME. PATIENT TOLERATING PROCEDURE WELL.
[2016-12-16] MEDS: DRY DRESSING TP SCH (13:00)
[2016-12-16] MEDS: MIDODRINE 5 MG TAB PO SCH ×2 (13:12→18:25)
[2016-12-16 13:30] LABS: ANION GAP 16.4 (8-16); CALCIUM 6.5 mg/dL (8.5-10.1); CARBON DIOXIDE 18.9 mmol/L (21-32); CREATININE 3.4 mg/dL (0.7-1.3); POTASSIUM 3.3 mmol/L (3.5-5.1)
--- NOTE | 2016-12-16 13:31 | NUR ---
GOT CALL FROM LAB [facility] FOR CRITICAL BUN RESULT 74, RESIDENT PHYSICIAN, DR PUCKETT MADE AWARE.
[2016-12-16] MEDS ORDERED: MAG SULF 2000 MG/WATER PREMIX 50 ML IV ONE (13:50)
--- NOTE | 2016-12-16 13:50 | NUR ---
SPOKE TO RESIDENT PHYSICIAN, DR. RUIZ TO FOLLOW UP WITH HGB 6.5 AND MAG 1.7. PER DR. RUIZ WILL HOLD OFF WITH BLOOD TRANSFUSION AND WILL CORRECT MAG. WILL FOLLOW UP WITH ORDERS.
[2016-12-16] MEDS: INSULIN LISPRO SLIDING SCALE 100 UNITS/ML VIAL SUBQ PRN ×2 (18:00→22:30)
[2016-12-16] MEDS ORDERED: VANCOMYCIN 1GM/DEXT 5% PREMIX 200 ML IV SCH (18:00)
--- NOTE | 2016-12-16 18:52 | NUR ---
RESIDENT PHYSICIAN, DR. PERKINS MADE AWARE OF PATIENT NOT HAVING OUTPUT FROM THE SUPRAPUBIC CATHETER AND NOTICED TO HAVE URINE SMELLING DISCHARGE FROM THE PENILE SHAFT OPENING.
--- NOTE | 2016-12-16 19:24 | NUR ---
REPORT GIVEN TO NIGHT NURSE FOR CONTINUITY OF CARE. PATIENT IN STABLE CONDITION.
--- NOTE | 2016-12-16 19:37 | NUR ---
RECEIVED REPORT FROM TAMIKO ESCOBAR. PATIENT IS RESTING IN BED WITH NO SIGNS OF RESPIRATORY DISTRESS OR SOB NOTED. PATIENT IS ETT TO VENT WITH SETTINGS OF FIO2 28%, TIDAL VOLUME 500, PEEP 5, A/C 12. RESPIRATORY THERAPIST AT BEDSIDE. BREATH SOUNDS ARE DIMINISHED UPON AUSCULTATION. BOWEL SOUNDS ARE HYPOACTIVE. THERE IS A SUPRAPUBIC CATHETER PRESENT WITH MINIMAL OUTPUT NOTED IN THE BAG OF CLOUDY YELLOW NOTED. PATIENT HAS AN UNSTAGEABLE WOUND ON THE RIGHT HEEL AND PRESSURE ULCERS ON THE SACRAL AND RIGHT BUTTOCKS. THERE IS A TRIPLE LUMEN CATHETER IN THE RIGHT IJ RECEIVING DOPAMINE AT 10MCG/KG/MIN AND D5NS AT 200 ML/HR. SITE IS DRY, INTACT, AND ASYMPTOMATIC. THERE IS A #20 IN THE RIGHT HAND SALINE LOCKED. THERE IS A #20 IN THE LEFT ANTECUBITAL WITH FENTANYL AT 5ML/HR AND VERSED AT 1ML/HR. SITE IS DRY, ASYMPTOMATIC, AND INTACT. HOB AT 30 DEGREES WITH BED IN LOW POSITION. WILL CONTINUE TO MONITOR PATIENT.
--- NOTE | 2016-12-16 19:40 | NUR ---
RESPIRATORY THERAPIST MIRIAN AT BEDSIDE FOR SCHEDULED ABG. NO SIGNS OF DISTRESS NOTED. CONTINUE TO MONITOR PATIENT.
[2016-12-16 19:46] LABS: BLOOD GAS PH 7.276 (7.35-7.45)
[2016-12-16 19:47] LABS: BLOOD GAS BASE EXCESS -10.4 mmol/L (-2.0-2.0); BLOOD GAS HCO3 15.4 mmol/L; BLOOD GAS O2 SAT% 97.5 % (92.0-98.5); BLOOD GAS PCO2 33.9 mmHg (20-50); BLOOD GAS PO2 117.5 mmHg
--- NOTE | 2016-12-16 19:59 | NUR ---
PESPIRATORY THERAPIST MIRIAN PRESENT AT UNIT WITH ABG RESULTS. PAGED DR. REYNAGA. WILL WAIT FOR CALL BACK. Addendum: 12/17/16 at 0120 by Karla Ware RN [facility]AT[facility].
--- NOTE | 2016-12-16 20:02 | NUR ---
SPOKE TO DR. REYNAGA AND REPORTED ABG RESULTS AND PATIENT'S STATUS. NO NEW ORDERS GIVEN. CONTINUE TO MONITOR.
--- NOTE | 2016-12-16 20:55 | NUR ---
PATIENT REPOSITIONED FOR COMFORT. NO S/S OF SOB OR RESPIRATORY DISTRESS NOTED. HOB AT 30 DEGREES WITH BED IN LOW POSITION. CONTINUE TO MONITOR PATIENT.
--- NOTE | 2016-12-16 21:15 | NUR ---
DR. JORDAN PRESENT ON UNIT. PROVIDED PATIENT'S STATUS TO PHYSICIAN. NO NEW ORDERS GIVEN AT THIS TIME.
[2016-12-16] MEDS: SIMVASTATIN 20 MG TAB PO SCH (21:47)
[2016-12-16] MEDS: LATANOPROST 0.005% OP 2.5 ML BTL OP SCH (21:48)
[2016-12-16] MEDS: MEROPENEM 500 MG in NACL 0.9% 50 ML IV SCH (21:49)
--- NOTE | 2016-12-16 22:05 | NUR ---
EXPLAINED INDICATIONS AND BENEFITS TO PATIENT. PATIENT ABLE TO NOD HEAD TO VERBALIZE UNDERSTANDING. TOLERATED DUE MEDICATIONS. BLOOD SUGAR IS 267. WILL ADMINISTER HUMALOG INSULIN PER SLIDING SCALE PER DOCTOR'S ORDERS. WITHHELD SCHEDULED HEPARIN R/T LOW PLATELET COUNT OF 63. NO SIGNS OF DISTRESS OR SOB NOTED. HOB AT 30 DEGREES WITH BED IN LOW POSITION. CONTINUE TO MONITOR PATIENT.
--- NOTE | 2016-12-16 22:14 | NUR ---
LAB SCIENTIST AT BEDSIDE.
--- NOTE | 2016-12-16 22:15 | NUR ---
DR. SOTO ON UNIT. Addendum: 12/16/16 at 2335 by Karla Ware RN NO NEW ORDERS GIVEN AT THIS TIME.
[2016-12-17] VITALS (101 sets, daily range): BP systolic 87–150; BP diastolic 30–88
--- NOTE | 2016-12-17 00:10 | NUR ---
PATIENT REPOSITIONED TO OFFLOAD PRESSURE AREAS. NO SIGNS OF SOB OR RESPIRATORY DISTRESS NOTED. HOB AT 30 DEGREES WITH BED IN LOW POSITION. CONTINUE TO MONITOR PATIENT.
[2016-12-17] MEDS: Z-GUARD PASTE TP SCH ×2 (00:13→13:00)
[2016-12-17] MEDS: THERAHONEY WOUND DRESSING TP SCH ×2 (01:17→13:00)
--- NOTE | 2016-12-17 02:00 | NUR ---
NO SIGNS OF RESPIRATORY DISTRESS OR SOB NOTED. CONTINUE TO MONITOR PATIENT.
[2016-12-17] MEDS: DEXT 5% /NACL 0.9% 1,000 ML IV SCH ×2 (03:42→09:19)
[2016-12-17] MEDS: DOPamine 400 MG/D5W PREMIX 250 ML IV PRN (04:35)
--- NOTE | 2016-12-17 04:50 | NUR ---
EGG GATHERER AT BEDSIDE FOR SCHEDULED LAB DRAWS.
--- NOTE | 2016-12-17 05:00 | NUR ---
PATIENT'S URINE IS LEAKING FROM SUPRAPUBIC CATHETER INSERTION SITE AND ON THE OPEN WOUND ON BASE OF PENIS. UNABLE TO MEASURE URINE OUTPUT. URINE BAG APPLIED ON PENIS FOR 24 HOUR URINE COLLECTION FOR CREATININE CLEARANCE.
[2016-12-17 05:03] LABS: MEAN CORPUSCULAR HEMOGLOBIN 27 pg (27-31); MEAN CORPUSCULAR HGB CONC 32 g/dL (33-37); MEAN CORPUSCULAR VOLUME 85 fL (80-94); PLATELET COUNT (AUTO) 47 K/uL (140-450); RED BLOOD CELL COUNT(AUTO) 2.27 MIL/uL (4.20-6.10); RED CELL DISTRIBUTION WIDTH 17.1 % (11.6-13.7); WHITE BLOOD COUNT (AUTO) 5.8 K/uL (4.8-10.8)
--- NOTE | 2016-12-17 05:45 | NUR ---
MORNING CARE RENDERED. BED BATH AND WOUND CARE DRESSINGS CHANGED. CHANGED LINENS AND GOWN. REPOSITIONED PATIENT FOR COMFORT. NO SIGNS OF RESPIRATORY DISTRESS OR SOB NOTED. HOB AT 30 DEGREES WITH BED IN LOW POSITION. WILL CONTINUE TO MONITOR PATIENT.
[2016-12-17 06:25] LABS: HEMATOCRIT 19.2 % (36-52); HEMOGLOBIN 6.2 g/dL (12.0-18.0)
[2016-12-17 06:26] LABS: EOSINOPHILS % (MANUAL) 5 % (0-4); LYMPHOCYTES % (MANUAL) 2 % (20-46); MONOCYTES % (MANUAL) 8 % (5-12); NEUTROPHILS % (MANUAL) 85 (43-65); PLATELET ESTIMATE DECREASED
[2016-12-17] MEDS: MIDODRINE 5 MG TAB PO SCH ×3 (06:27→19:44)
--- NOTE | 2016-12-17 06:31 | NUR ---
CALLED AND SPOKE TO DR. SOTO REGARDING CRITICAL LAB VALUES HEMOGLOBIN 6.2 AND HEMATOCRIT 19.2. NO NEW ORDERS GIVEN. CONTINUE TO MONITOR PATIENT.
[2016-12-17] MEDS: BLOOD GLUCOSE MONITORING 1 DEV DEV FS SCH ×4 (06:37→20:45)
[2016-12-17] MEDS: INSULIN LISPRO SLIDING SCALE 100 UNITS/ML VIAL SUBQ PRN ×4 (06:40→20:49)
--- NOTE | 2016-12-17 07:12 | NUR ---
RESPIRATORY THERAPIST JOSEFINA AT BEDSIDE. NO SIGNS OF DISTRESS OR SOB NOTED. ALL PATIENT'S NEEDS ATTENDED TO DURING SHIFT. ENDORSED CONTINUITY OF CARE TO TAMIKO ESCOBAR.
--- NOTE | 2016-12-17 07:15 | NUR ---
RECEIVED REPORT FROM NIGHT RN FOR CONTINUITY OF CARE. PATIENT IN STABLE CONDITION.
--- NOTE | 2016-12-17 07:20 | NUR ---
RECEIVED PT STABLE ON VENT SUPPORT AT DOCUMENTED SETTINGS, SXN/D SMALL THIN BLOOD TINGED SECRETIONS, NO RESP DISTRESS OR SOB NOTED, 7.5 ETT SECURED AT 23 CM AT LIP, ALARMS SET AND AUDIBLE, VENT PLUGGED INTO RED OUTLET, AMBU BAG AT BEDSIDE, WILL CONTINUE TO MONITOR.
--- NOTE | 2016-12-17 07:35 | NUR ---
DR. REYNAGA CAME IN. VERSED AND FENTANYL DRIP ON HOLD AT THIS TIME, FOR VENT WEANING. RT AT BEDSIDE.
--- NOTE | 2016-12-17 07:45 | NUR ---
PATIENT AWAKE AT THIS TIME. VENT WEANING STARTED BP 107/61 OR 72 RR 12 SAT 100%. PATIENT TOLERATING WELL.
--- NOTE | 2016-12-17 07:48 | NUR ---
PLACED ON CPAP MODE PER DR REYNAGA, TOLERATING WELL, ABG TO FOLLOW.
[2016-12-17 08:07] LABS: POTASSIUM 2.9 mmol/L (3.5-5.1)
[2016-12-17 08:08] LABS: ANION GAP 18.4 (8-16); CALCIUM 6.5 mg/dL (8.5-10.1); CARBON DIOXIDE 16.5 mmol/L (21-32); CREATININE 3.2 mg/dL (0.7-1.3)
--- NOTE | 2016-12-17 08:32 | NUR ---
PATIENT TOLERATING CPAP. ABG IS BEING DRAWN AT THIS TIME. BP 109/69, MN 71, RR 13, SAT 100%. CVP READING 13 MMHG. WILL CONTINUE TO MONITOR PATIENT.
[2016-12-17 08:48] LABS: BLOOD GAS BASE EXCESS -12.2 mmol/L (-2.0-2.0); BLOOD GAS HCO3 14.4 mmol/L; BLOOD GAS O2 SAT% 97.8 % (92.0-98.5); BLOOD GAS PCO2 35.9 mmHg (20-50); BLOOD GAS PO2 121.6 mmHg
[2016-12-17] MEDS: FOAM DRESSING TP SCH (09:00)
--- NOTE | 2016-12-17 09:07 | NUR ---
ABG RESULTS REPORTED TO DR REYNAGA, PLACED BACK ON AC MODE, WILL BE REEVALUATED TOMORROW.
--- NOTE | 2016-12-17 09:08 | NUR ---
VERSED AND FENTANYL RESTARTED BP 104/60, HR 72, RR 19 AND O2 SAT 98%.
[2016-12-17] MEDS ORDERED: KCL 20 MEQ/WATER INJ PREMIX 200 ML IV ONE ×2 (09:10)
[2016-12-17] MEDS ORDERED: MAG SULF 2000 MG/WATER PREMIX 100 ML IV SCH ×2 (09:19→09:22)
[2016-12-17] MEDS: PANTOPRAZOLE 40 MG INJ VIAL IVP SCH (09:21)
[2016-12-17] MEDS: CALCIUM ACETATE 667 MG TAB PO SCH ×2 (09:21→16:52)
[2016-12-17] MEDS: LACTOBACILLUS RHAMNOSUS GG 1 EACH CAP PO SCH (09:22)
[2016-12-17] MEDS: LACTULOSE 20 GM/30 ML UDC PO SCH ×3 (09:22→16:51)
[2016-12-17] MEDS: ECOTRIN 81 MG TABEC PO SCH (09:22)
[2016-12-17] MEDS: VIT-B COMP/VIT-C/FOLIC ACID 1 TAB PO SCH (09:23)
[2016-12-17] MEDS: NEOMYCIN 500 MG TAB PO SCH ×4 (09:23→20:33)
[2016-12-17] MEDS: ASCORBIC ACID 500 MG TAB PO SCH ×2 (09:23→20:34)
--- NOTE | 2016-12-17 09:30 | NUR ---
DUE HEPARIN NOT GIVEN, PLATELET AND HGB LOW. RESIDENT PHYSICIAN, DR. PUCKETT MADE AWARE.
[2016-12-17] MEDS: MEROPENEM 500 MG in NACL 0.9% 50 ML IV SCH ×2 (09:34→20:41)
[2016-12-17] MEDS ORDERED: MAG SULF 2000 MG/WATER PREMIX 50 ML IV ONE (09:35)
[2016-12-17] MEDS ORDERED: MAG SULF 2000 MG/WATER PREMIX 100 ML IV ONE (09:35)
[2016-12-17] MEDS: MIDAZOLAM MDV 50 MG in NACL 0.9% 40 ML IV PRN (10:22)
[2016-12-17] MEDS: FENTANYL IV SCH ×2 (10:35→20:41)
[2016-12-17] MEDS: NACL 0.9% IV SCH ×2 (10:35→20:41)
--- NOTE | 2016-12-17 10:54 | NUR ---
12/17/16 RD FOLLOW-UP ASSESSMENT COMPLETED PLEASE REFER TO NUTRITION ASSESSMENT UNDER CARE ACTIVITY FOR ESTIMATED NUTRITIONAL NEEDS. 1. CONSIDER INITIATING ENTERAL NUTRITION SUPPORT VIA NGT - NOVASOURCE TO START AT 30 ML/HR, ADVANCE 10 ML Q8H TO A GOAL RATE OF 40 ML/HR + ADD PROSOUCRE 1X/DAILY (PROVIDES 1980 KCAL, 102 G PROTEIN, 688 ML FREE WATER - MEETS 100% KCAL + 80% PROTEIN ESTIMATED NEEDS) 2. CONTINUE VITAMIN C SUPPLEMENT 1X/DAILY 3. RD TO FOLLOW-UP 2-3 DAYS; HIGH RISK PARAMJIT GALVAN, MADELIN
[2016-12-17] MEDS ORDERED: KCL 20 MEQ/WATER INJ PREMIX 200 ML IV SCH (12:00)
[2016-12-17] MEDS ORDERED: POTASSIUM CHLORIDE 20% 40 MEQ/15 ML UDC PO SCH (12:03)
[2016-12-17] MEDS ORDERED: SODIUM BICARBONATE 650 MG TAB PO SCH (12:04)
--- NOTE | 2016-12-17 12:07 | NUR ---
DR. ORR IN AND SEEN PATIENT. WILL FOLLOW UP WITH ORDERS.
[2016-12-17] MEDS: NACL 0.9% 1,000 ML IV SCH ×2 (12:20→21:55)
[2016-12-17] MEDS: DRY DRESSING TP SCH ×2 (13:00)
[2016-12-17] MEDS: THERAHONEY GEL 42.5 GM TP SCH ×2 (13:00)
--- NOTE | 2016-12-17 17:15 | NUR ---
1ST UNIT PRBC STARTED AT THIS TIME. NO S/S OF BLOOD TRANSFUSION REACTION NOTED AT THIS. WILL MONITOR PATIENT.
--- NOTE | 2016-12-17 17:30 | NUR ---
PATIENT IN STABLE CONDITION, NO S/S OF BLOOD TRANSFUSION REACTION NOTED AT THIS TIME. WILL CONTINUE TO MONITOR PATIENT.
--- NOTE | 2016-12-17 19:28 | NUR ---
RECEIVED REPORT FROM TAMIKO ESCOBAR. PATIENT IS RESTING IN BED WITH NO SIGNS OF RESPIRATORY DISTRESS OR SOB NOTED AT THIS TIME.PATIENT IS ETT TO VENT WITH CURRENT SETTINGS OF FIO2 28%, TIDAL VOLUME 500, PEEP 5, A/C 12. RESPIRATORY THERAPIST NICOLAS AT BEDSIDE. BREATH SOUNDS ARE DIMINISHED UPON AUSCULTATION. PT HAS RIGHT NARE NGT RUNNING NOVASOURCE RENAL AT 30ML/HR WITH Q8H 100ML WATER FLUSH. LESS THAN 5 ML GASTRIC RESIDUAL ASPIRATED. BOWEL SOUNDS ARE HYPOACTIVE. PT HAS SUPRAPUBIC CATHETER PRESENT WITH MINIMAL OUTPUT NOTED IN THE BAG OF CLOUDY YELLOW NOTED. PT HAS RIGHT IJ TLC RECEIVING DOPAMINE AT 10MCG/KG/MIN, FENTANYL DRIP AT 5ML/HR AND AND VERSED AT 3ML/HR. SITE IS DRY, INTACT, AND ASYMPTOMATIC. THERE IS A #20 IN THE RIGHT HAND SALINE RUNNING NS AT 86ML/HR. SITE IS PATENT DRY AND INTACT. PT HAS MULTIPLE WOUNDS. SEE WOUND ASSESSMENT. HOB AT 30 DEGREES WITH BED IN LOW POSITION. CONTACT AND SAFETY PRECAUTIONS MAINTAINED. WILL CONTINUE TO MONITOR PATIENT.
--- NOTE | 2016-12-17 19:30 | NUR ---
REPORT GIVEN TO NIGHT RN FOR CONTINUITY OF CARE. PATIENT IN STABLE CONDITION.
[2016-12-17] MEDS: SODIUM BICARBONATE 650 MG TAB PO SCH (20:33)
[2016-12-17] MEDS: SIMVASTATIN 20 MG TAB PO SCH (20:34)
[2016-12-17] MEDS: LATANOPROST 0.005% OP 2.5 ML BTL OP SCH (20:35)
[2016-12-17] MEDS: INSULIN DETEMIR 100 UNITS/ML 10 ML VIAL SUBQ SCH (20:42)
--- NOTE | 2016-12-17 21:08 | NUR ---
DR MENENDEZ HERE ON THE UNIT TO SEE THE PATIENT. WILL FOLLOW UP WITH ANY NEW ORDERS.
--- NOTE | 2016-12-17 21:13 | NUR ---
DR JORDAN HERE ON THE UNIT TO SEE THE PATIENT. WILL FOLLOW UP WITH ANY NEW ORDERS.
[2016-12-17] MEDS ORDERED: VANCOMYCIN PER PHARMACY MC PRN (21:15)
[2016-12-17] MEDS ORDERED: VANCOMYCIN 1GM/DEXT 5% PREMIX 200 ML IV SCH (21:35)
[2016-12-17] MEDS ORDERED: VANCOMYCIN 1,000 MG VIAL ONE (21:54)
--- NOTE | 2016-12-17 22:04 | NUR ---
PT RESTING IN BED. NO SOB NOTED AT THIS TIME. FLACC 0 AT THIS TIME. STARTED PT ON VANCO PER DR JORDAN ORDER. WILL CONTINUE TO CLOSELY MONITOR PATIENT.
--- NOTE | 2016-12-17 22:05 | NUR ---
BLOOD TRANSFUSION COMPLETE. NO REACTION NOTED. RESIDENT DR SINGLETON UPDATED. WILL FOLLOW UP WITH ORDERS.
[2016-12-18] VITALS (104 sets, daily range): BP systolic 76–147; BP diastolic 31–102
--- NOTE | 2016-12-18 00:09 | NUR ---
PT RESTING IN BED. NO SOB NOTED AT THIS TIME. PT TURNED AND REPOSITIONED. VAP ORAL KIT PROVIDED. LESS THAN 5 ML GASTRIC RESIDUAL ASPIRATED. NGT FEEDING INCREASED TO 40ML/HR PER PARAMETERS. WILL CONTINUE TO CLOSELY MONITOR PATIENT.
[2016-12-18] MEDS: THERAHONEY WOUND DRESSING TP SCH ×2 (01:15→13:00)
[2016-12-18] MEDS: Z-GUARD PASTE TP SCH ×2 (01:15→13:00)
[2016-12-18 01:59] LABS: HEMATOCRIT 29.7 % (36-52); HEMOGLOBIN 9.6 g/dL (12.0-18.0); MEAN CORPUSCULAR HEMOGLOBIN 28 pg (27-31); MEAN CORPUSCULAR HGB CONC 32 g/dL (33-37); MEAN CORPUSCULAR VOLUME 86 fL (80-94); RED BLOOD CELL COUNT(AUTO) 3.45 MIL/uL (4.20-6.10); RED CELL DISTRIBUTION WIDTH 17.8 % (11.6-13.7)
[2016-12-18] MEDS: DOPamine 400 MG/D5W PREMIX 250 ML IV PRN ×4 (02:12→23:20)
--- NOTE | 2016-12-18 02:13 | NUR ---
PT RESTING IN BED. NO S/S OF ACUTE RESP DISTRESS NOTED AT THIS TIME. WILL CONTINUE TO MONITOR.
[2016-12-18 02:20] LABS: NEUTROPHILS % (MANUAL) 73 (43-65); PLATELET COUNT (AUTO) 78 K/uL (140-450)
[2016-12-18 02:21] LABS: BAND % (MANUAL) 19 % (0-8); EOSINOPHILS % (MANUAL) 5 % (0-4); LYMPHOCYTES % (MANUAL) 2 % (20-46); MONOCYTES % (MANUAL) 1 % (5-12)
[2016-12-18] MEDS: NACL 0.9% 1,000 ML IV SCH (03:23)
[2016-12-18 04:34] LABS: CREATININE,URINE RANDOM 29 mg/dL (30-125); URINE SODIUM, RANDOM 75 mmol/l (40-220)
--- NOTE | 2016-12-18 05:02 | NUR ---
MORNING CARE RENDERED. PT CLEANED. LINEN CHANGED NOS/S OF ACUTE REPS DISTRESS NOTED AT THIS TIME. FLACC 0 AT THIS TIME. WILL CONTINUE TO CLOSELY MONITOR.
[2016-12-18] MEDS: MIDAZOLAM MDV 50 MG in NACL 0.9% 40 ML IV PRN ×2 (05:31→22:50)
[2016-12-18 05:41] LABS: BLOOD GAS PH 7.139 (7.35-7.45); BLOOD GAS PO2 101.5 mmHg
[2016-12-18 05:42] LABS: BLOOD GAS BASE EXCESS -15.5 mmol/L (-2.0-2.0); BLOOD GAS HCO3 12.6 mmol/L; BLOOD GAS O2 SAT% 96.7 % (92.0-98.5)
--- NOTE | 2016-12-18 05:50 | NUR ---
RESIDENT DO ITALO HERE ON THE UNIT WILL FOLLOW UP WITH ANY ORDERS.
[2016-12-18 05:56] LABS: ANION GAP 18.6 (8-16); CALCIUM 6.9 mg/dL (8.5-10.1); CARBON DIOXIDE 16.3 mmol/L (21-32); CREATININE 3.1 mg/dL (0.7-1.3); POTASSIUM 3.9 mmol/L (3.5-5.1)
[2016-12-18] MEDS: MORPHINE SULFATE 2 MG/ML SYR IVP PRN (06:40)
[2016-12-18] MEDS: MIDODRINE 5 MG TAB PO SCH ×3 (06:40→17:30)
--- NOTE | 2016-12-18 06:40 | NUR ---
PT FLACC SCORE 7 AT THIS TIME. NO SOB NOTED. MEDICATED ORDERED PRN. WILL CONTINUE TO MONITOR.
[2016-12-18] MEDS: BLOOD GLUCOSE MONITORING 1 DEV DEV FS SCH ×4 (06:41→21:25)
--- NOTE | 2016-12-18 07:06 | NUR ---
RECIVED PT ON VENT WITH SETTINGS CHARTED BREATH SOUNDS PRESENT BILAT CLEAR SXN PT WITH MIN AMT THIN BLOOD TINGED SECS PT SEDATED BUT VERY ANXIOUS RN AWARE VENT PLUGGED INTO RED OUTLET AMBU BAG AT BEDSIDE
--- NOTE | 2016-12-18 07:08 | NUR ---
ENDORSED PLAN OF CARE TO LUZ CAST RN FOR TRANSFER OF CARE. PT STABLE AT THIS TIME.
--- NOTE | 2016-12-18 07:10 | NUR ---
RECEIVED REPORT FROM LUZ ROGERS. PT IS A/O X1. NONVERBAL. UNABLE TO FOLLOW COMMANDS. BILATERAL PERRL NOTED IN EYES. NO S/SX OF PAIN NOTED. PT ETT TO VENT. FIO2 28%, AC 12, TV 500, PEEP 5. SATURATING AT 98%. SR ON MONITOR. ABLE TO MOVE BILATERAL UPPER EXTREMITIES. PARAPLEGIC. PT REMOVED R HAND IV. CANNULA INTACT. MINIMAL BLEEDING NOTED. MD AWARE. R IJ TRIPLE LUMEN CENTRAL CATHETER NOTED. INTACT AND PATENT. INFUSING DOPAMINE AT 10 MCG/KG/HR. INFUSING FENTANYL AT 5 ML/HR. INFUSING VERSED AT 3 ML/HR. TOLERATING WELL. WOUND NOTED ON ABDOMEN. DRESSING DRY AND INTACT. WOUND NOTED ON SACRUM AND R BUTTOCK. DRESSING DRY AND INTACT. WOUNDS NOTED ON BILATERAL LEGS. DRESSING DRY AND INTACT. WOUND NOTED ON PENIS. GAUZE IN PLACE. SUPRAPUBIC CATHETER NOTED. MINIMAL HEMATURIA NOTED IN BAG. SAFETY PRECAUTION MAINTAINED. BED AT LOWEST SETTING. CALL LIGHT WITHIN REACH. WILL CONTINUE TO MONITOR FOR CHANGES. Addendum: 12/18/16 at 0956 by Stevie Zamudio RN PT APPEARS TO BE DISTENDED IN THE ABDOMEN. ABDOMEN IS LARGER AND FIRMER THAN LAST SEEN. BILATERAL LOWER EXTREMITIES NOTED +1 PITTING EDEMA. SCROTUM APPEARS TO BE SWOLLEN. WILL CONTINUE TO MONITOR.
--- NOTE | 2016-12-18 07:22 | NUR ---
DR. PUCKETT PAGED REGARDING PT'S AGONAL BREATHING PATTERN, AWAITING CALLBACK.
--- NOTE | 2016-12-18 07:23 | NUR ---
DR. REYNAGA PAGED REGARDING ABNORMAL ABG RESULTS AND PATIENT'S AGONAL BREATHING. AWAITING CALL BACK
--- NOTE | 2016-12-18 07:38 | NUR ---
ORDERS RECEIVED FROM DR. REYNAGA. WILL CARRY OUT NEW ORDERS.
[2016-12-18] MEDS ORDERED: SODIUM BICARBONATE 8.4% PFS 50 MEQ/50 ML SYR IVP SCH (07:40)
[2016-12-18] MEDS ORDERED: NACL 0.9% 500 ML IV ONE (07:40)
[2016-12-18] MEDS: FENTANYL IV SCH (07:58)
[2016-12-18] MEDS: NACL 0.9% IV SCH (07:58)
--- NOTE | 2016-12-18 08:00 | NUR ---
PT APPEARS TO BE MORE AGITATED THAN USUAL DESPITE MEDICATION. CONSISTENTLY RAISING ARM TO WHERE ETT TUBE IS. MADE AWARE. ORDERS RECEIVED FOR BILATERAL SOFT WRIST RESTRAINT. WRIST RESTRAINT PLACED. TOLERATED OKAY. WILL CONTINUE TO MONITOR.
--- NOTE | 2016-12-18 08:00 | NUR ---
HEPARIN HELD D/T LOW PLATELET COUNTS. AWARE. WILL CONTINUE TO MONITOR.
--- NOTE | 2016-12-18 08:00 | NUR ---
DR. LORD AND GROUP AT BEDSIDE TO SEE PT. WILL F/U WITH NEW ORDERS.
[2016-12-18] MEDS: SODIUM BICARBONATE 8.4% 100 MEQ in NACL 0.45% 1,000 ML IV SCH ×2 (08:05→08:49)
[2016-12-18] MEDS: LACTULOSE 20 GM/30 ML UDC PO SCH ×3 (08:15→17:29)
[2016-12-18] MEDS: LACTOBACILLUS RHAMNOSUS GG 1 EACH CAP PO SCH (08:16)
[2016-12-18] MEDS: ASPIRIN 81 MG TAB.CHEW GT SCH (08:16)
[2016-12-18] MEDS: ASCORBIC ACID 500 MG TAB PO SCH ×2 (08:16→20:45)
[2016-12-18] MEDS: PANTOPRAZOLE 40 MG INJ VIAL IVP SCH (08:16)
[2016-12-18] MEDS: CALCIUM ACETATE 667 MG TAB PO SCH ×2 (08:16→17:30)
[2016-12-18] MEDS: SODIUM BICARBONATE 650 MG TAB PO SCH ×2 (08:16→20:45)
[2016-12-18] MEDS: VIT-B COMP/VIT-C/FOLIC ACID 1 TAB PO SCH (08:17)
[2016-12-18] MEDS: INSULIN DETEMIR 100 UNITS/ML 10 ML VIAL SUBQ SCH ×2 (08:27→21:00)
--- NOTE | 2016-12-18 08:45 | NUR ---
NG TUBE NOTED. PLACEMENT CHECKED. RESIDUAL OVER 200. HOLD TUBE FEEDING PER ORDERED. MEDICATION ADMINISTERED ORDERED. TOLERATED WELL.
[2016-12-18] MEDS: MEROPENEM 500 MG in NACL 0.9% 50 ML IV SCH ×2 (08:48→20:49)
[2016-12-18] MEDS: NEOMYCIN 500 MG TAB PO SCH ×4 (08:48→21:00)
[2016-12-18] MEDS: THERAHONEY GEL 42.5 GM TP SCH ×2 (08:50→13:00)
--- NOTE | 2016-12-18 09:00 | NUR ---
FRIENDS AT BEDSIDE TO SEE PT.
--- NOTE | 2016-12-18 09:48 | NUR ---
PER DR. PUCKETT, PT SHOULD MAINTAIN RASS OF -3 WHILE ON FENTANYL DRIP.
--- NOTE | 2016-12-18 10:01 | NUR ---
DR. MCLEOD AT BEDSIDE TO SEE PT. WILL F/U WITH NEW ORDERS.
[2016-12-18 10:07] LABS: BLOOD GAS PCO2 41.4 mmHg (20-50); BLOOD GAS PH 7.159 (7.35-7.45); BLOOD GAS PO2 104.6 mmHg
[2016-12-18 10:08] LABS: BLOOD GAS BASE EXCESS -13.5 mmol/L (-2.0-2.0); BLOOD GAS HCO3 14.4 mmol/L; BLOOD GAS O2 SAT% 96.7 % (92.0-98.5)
--- NOTE | 2016-12-18 10:14 | NUR ---
DR. REYNAGA PAGED REGARDING NEW ABG RESULTS. AWAITING CALL BACK.
--- NOTE | 2016-12-18 10:15 | NUR ---
pt transported to ct via ambu bag ct was done pt then transported back to icu at 1045 no ill effects noted
--- NOTE | 2016-12-18 10:20 | NUR ---
AT 1000. RESTRAINTS LOOSENED PER PROTOCOL. PT DOES NOT APPEAR TO NEED RESTRAINTS. WILL LEAVE OFF FOR NOW AND CONTINUE TO MONITOR.
--- NOTE | 2016-12-18 10:21 | NUR ---
CALL BACK RECEIVED FROM DR. REYNAGA. NEW ORDERS RECEIVED. WILL CARRY OUT NEW ORDERS.
--- NOTE | 2016-12-18 10:35 | NUR ---
PT TO CT ACCOMPANIED BY CARD SORTER, RT, AND LUZ CAST.
--- NOTE | 2016-12-18 11:00 | NUR ---
PT BACK FROM CT AND PLACED ON THE MONITOR.
[2016-12-18] MEDS: RIFAXIMIN 550 MG TAB PO SCH ×2 (11:19→21:00)
--- NOTE | 2016-12-18 11:19 | NUR ---
RESIDUAL CHECKED. MINIMAL RESIDUAL NOTED. STARTED BACK ON TUBE FEEDING. MEDICATION GIVEN ORDERED. TOLERATED WELL. WILL CONTINUE TO MONITOR.
[2016-12-18] MEDS ORDERED: MAG SULF 2000 MG/WATER PREMIX 50 ML IV SCH (11:30)
--- NOTE | 2016-12-18 11:45 | NUR ---
DR. REYNAGA AT BEDSIDE TO SEE PT. WILL F/U WITH NEW ORDERS
--- NOTE | 2016-12-18 11:50 | NUR ---
CONNECT NGT TO LOW INTERMITTENT SUCTION ORDERED. DRAINING GASTRIC CONTENT WELL. PT TOLERATED WELL. WILL CONTINUE TO MONITOR.
--- NOTE | 2016-12-18 12:16 | NUR ---
FAMILY AT BEDSIDE TO SEE PT.
[2016-12-18] MEDS: DRY DRESSING TP SCH ×2 (13:00)
--- NOTE | 2016-12-18 13:00 | NUR ---
SUCTION CONTAINER CHECKED. 1000 CC GASTRIC CONTENT SUCTION. HELD AT THIS TIME FOR MEDICATION ADMINISTRATION. WILL RESTART. MEDICATION ADMINISTERED ORDERED. TOLERATED WELL. WILL CONTINUE TO MONITOR FOR CHANGES.
--- NOTE | 2016-12-18 14:41 | NUR ---
SPOKE WITH DR. MENENDEZ REGARDING IMPRESSION FROM ABD/PELVIS CT. PER DR. MENENDEZ, PT NO LONGER NEEDS CYSTOGRAM SUPRAPUBIC LUMEN TIP IS IN THE BLADDER. RADIOLOGY NOTIFIED.
--- NOTE | 2016-12-18 15:00 | NUR ---
DR. ORR AT BEDSIDE TO SEE PT. WILL F/U WITH NEW ORDERS.
[2016-12-18 15:06] LABS: BLOOD GAS HCO3 15.4 mmol/L; BLOOD GAS PCO2 41.9 mmHg (20-50); BLOOD GAS PH 7.183 (7.35-7.45); BLOOD GAS PO2 93.4 mmHg
[2016-12-18 15:07] LABS: BLOOD GAS O2 SAT% 96.2 % (92.0-98.5)
--- NOTE | 2016-12-18 15:19 | NUR ---
DR. JORDAN AT BEDSIDE TO SEE PT. WILL F/U WITH NEW ORDERS.
--- NOTE | 2016-12-18 15:30 | NUR ---
DR. PUCKETT ON UNIT TO OBTAIN TELEPHONE CONSENT FROM SISTER FOR [facility] AND [facility]. LUZ JADE AT SIDE TO WITNESS.
--- NOTE | 2016-12-18 16:15 | NUR ---
PT PLACED BACK ON RESTRAINT PER MD REQUEST D/T IMPENDING PROCEDURE. PT CANNOT STOP RAISING ARM AND PULLING ON NEARBY EQUIPMENT. WILL CONTINUE TO MONITOR PER PROTOCOL
--- NOTE | 2016-12-18 16:20 | NUR ---
DR. PUCKETT TO START CENTRAL LINE INSERTION. TIME OUT DONE. WILL CONTINUE TO MONITOR
--- NOTE | 2016-12-18 17:15 | NUR ---
UNABLE TO START CENTRAL LINE. PER MD, WILL RETRY LATER.
[2016-12-18] MEDS: SODIUM BICARBONATE 8.4% 150 MEQ in DEXTROSE 5% 1,000 ML IV SCH ×2 (17:26→21:00)
--- NOTE | 2016-12-18 17:32 | NUR ---
SUCTION HELD AT THIS TIME FOR MEDICATION ADMINISTRATION. WILL RESTART. MEDICATION ADMINISTERED ORDERED. TOLERATED WELL. WILL CONTINUE TO MONITOR FOR CHANGES.
[2016-12-18] MEDS: fentaNYL 1 MG in NACL 0.9% 80 ML IV PRN (18:27)
--- NOTE | 2016-12-18 18:56 | NUR ---
PT RECEIVED FROM [facility] ON NOTED VENT SETTINGS. PT AWAKE, HAS A #7.5 ETT SECURED AT 23 LIP LINE AT MIDLINE WITH AN ANCHOR FAST. BREATH SOUNDS APPEAR CLEAR, NO DISTRESS/SOB/WHEEZING NOTED AT THIS TIME. NO INDICATION FOR HHN PRN TX. PT LAVAGED AND SUCTIONED FOR SMALL AMOUNT THIN CREAMY SECRETIONS. NO ADVERSE EFFECTS NOTED. VENT ALARMS ON AND AUDIBLE. VENT PLUGGED INTO RED ELECTRICAL OUTLET. AMBU BAG AT [facility].
[2016-12-18 19:19] LABS: BLOOD GAS BASE EXCESS -11.5 mmol/L (-2.0-2.0); BLOOD GAS HCO3 15.6 mmol/L; BLOOD GAS O2 SAT% 95.8 % (92.0-98.5); BLOOD GAS PCO2 40.1 mmHg (20-50); BLOOD GAS PH 7.208 (7.35-7.45); BLOOD GAS PO2 92.1 mmHg
--- NOTE | 2016-12-18 19:20 | NUR ---
RECEIVED REPORT FORM LUZ JADE AND SERENE RN AT BEDSIDE, PT IS DROWSY, OPEN EYES SPONTANEOUSLY, APHASIC DUE TO ETT TO VENT, UNABLE TO FOLLOW COMMANDS AND MAKE NEEDS KNOWN AT THIS TIME, FLACC 0, VSS. ON ETT TO VENT WITH SETTING FIO2 28, AC 12, 500, 5, NO SOB/DISTRESS, BREATHING EVEN AND UNLABORED, CLEAR LUNG SOUNDS, O2 SAT AT 99%, SR ON MANDREL MAKER, GENERALIZED EDEMA NOTED, NG TUBE TO RIGHT NARE WITH POSITIVE PLACEMENT OF AUSCULTATION, CONNECTED TO LWIS, EXTENDED ABDOMEN WITH ACTIVE BOWEL SOUNDS, SUPRAPUBIC CATHETER IN PLACE WITH RED BROWN URINE NOTED, SKIN IS PALE IN COLOR, WARM AND COOL IN TOUCH, MULTIPLE OPEN WOUND NOTED (SEE WOUND ASSESSMENT), CENTRAL LINE TO RIGHT IJ TLC, PATENT TO EACH LUMEN, RUNNING DOPAMINE AT 10 MCG/MIN, FANTAYL AT 50 MCG, VERCID AT 3ML/HR, AND BICAB AT 100ML/HR, SEVERER WEAKNESS TO ALL EXTREMITIES, HEAD ELEVATED 30 DEGREES, SAFETY MEASURES MAINTAINED, DR. PERKINS, DR. ROMERO AT BEDSIDE, PREPARING THE PROCEDURE FOR CAMERON CATHETER PLACEMENT.
--- NOTE | 2016-12-18 19:40 | NUR ---
TIME OUT FOR CAMREON CATHETER PLACEMENT, DR. PERKINS, DR. ROMERO, AND DR. LUGO, [facility] PROGRAM COORDINATOR AT BEDSIDE.
--- NOTE | 2016-12-18 20:40 | NUR ---
CAMERON CATHETER PLACED ON LEFT SUBCLAVIAN WITH DOUBLE LUMEN, PT TOLERATED WELL. ALL PROCEDURE DONE WITH ASEPTIC TECHNIQUE. X-RAY CONFIRMED PLACEMENT AT BEDSIDE. DR. MATA PRESENT AND CONFIRMED IT IS OK TO USE THE CAMERON CATH FOR HD. Addendum: 12/18/16 at 2236 by Madyson Hanson RN NOT LEFT SUBCLAVIAN, CAMERON CATHETER PLACED ON LEFT INTERANGULAR.
[2016-12-18] MEDS: SIMVASTATIN 20 MG TAB PO SCH (20:45)
[2016-12-18] MEDS: LATANOPROST 0.005% OP 2.5 ML BTL OP SCH (20:49)
--- NOTE | 2016-12-18 20:56 | NUR ---
VENT CHECKED. PT QUIET, HAVING X RAY POST CAMERON CATHETER PLACEMENT. NO DISTRESS/SOB NOTED AT THIS TIME. BREATH SOUNDS CLEAR, NO SUCTIONING NEEDED.
--- NOTE | 2016-12-18 21:00 | NUR ---
ACCU CHECK PERFORMED WITH RESULT 68 MG/DL, DR. PERKISN MADE AWARE, OK TO HOLD LEVEMIR FOR TONIGHT.
--- NOTE | 2016-12-18 21:50 | NUR ---
SPOKE TO PATIENT'S SISTER, RICHARD AND OBTAINED VERBALLY CONSENT FOR HD.
--- NOTE | 2016-12-18 22:00 | NUR ---
VSS. NO CHANGE OF CONDITION AT THIS TIME, POSITION CHANGED FOR OFF LOAD PRESSURE.
--- NOTE | 2016-12-18 22:35 | NUR ---
HD NURSE JED CAME IN STARTED HD.
--- NOTE | 2016-12-18 23:15 | NUR ---
VENT CHECKED. PT ON DIALYSIS AT THIS TIME. ETT MOVED TO RIGHT SIDE OF PT'S MOUTH. BREATH SOUNDS REMAIN CLEAR, PT LAVAGED AND SUCTIONED SMALL AMOUNT PINK TINGED SECRETIONS. NO ADVERSE EFFECTS NOTED.
[2016-12-19] VITALS (106 sets, daily range): BP systolic 64–155; BP diastolic 33–98
--- NOTE | 2016-12-19 | NUR ---
PT IS AWAKE WITH EYES OPEN, NOT ABLE TO FOLLOW COMMAND, VSS, FLACC 0, ON HD, ORAL CARE PROVIDED, POSITION CHANGED FOR OFF LOAD PRESSURE.
--- NOTE | 2016-12-19 01:09 | NUR ---
VENT CHECKED, PT STILL ON DIALYSIS. NO DISTRESS/SOB NOTED. PT LAVAGED AND SUCTIONED SMALL AMOUNT PINK TINGED SECRETIONS. NO ADVERSE EFFECTS NOTED.
[2016-12-19] MEDS: Z-GUARD PASTE TP SCH ×2 (01:17→12:55)
[2016-12-19] MEDS: THERAHONEY WOUND DRESSING TP SCH ×2 (01:17→12:55)
[2016-12-19] MEDS: DRY DRESSING TP PRN (01:19)
[2016-12-19] MEDS: Z-GUARD PASTE TP PRN (01:19)
[2016-12-19] MEDS: THERAHONEY WOUND DRESSING TP PRN (01:19)
--- NOTE | 2016-12-19 02:00 | NUR ---
POSITION CHANGED FOR OFF LOAD PRESSURE, NO CHANGE OF CONDITION AT THIS TIME, HD NURSE AT BEDSIDE.
--- NOTE | 2016-12-19 02:30 | NUR ---
HD COMPLETED WITH 1 L OUTPUT.
[2016-12-19] MEDS: DOPamine 400 MG/D5W PREMIX 250 ML IV PRN ×3 (03:06→17:06)
--- NOTE | 2016-12-19 03:39 | NUR ---
VENT CHECKED, PT HAVING BATH AND LINEN CHANGED. NO DISTRESS/SOB NOTED.
--- NOTE | 2016-12-19 04:00 | NUR ---
PT IS AWAKE, TRYING TO MOVE HIS ARMS TO ETT, STILL ON RESTRAIN, VSS, NO S/S OF DISTRESS, ORAL CARE PROVIDED, AM CARE PROVIDED, WOUND DRESSING CHANGED, SUPRAPUBIC CATHETER CARE PROVIDED, POSITION CHANGED FOR OFF LOAD PRESSURE. WILL CONTINUE TO MONITOR.
--- NOTE | 2016-12-19 05:29 | NUR ---
VENT CHECKED. PT QUIET, HME CHANGED. PT LAVAGED AND SUCTIONED FOR SMALL AMOUNT CREAMY/PINK TINGED SECRETIONS. NO ADVERSE EFFECTS NOTED. BREATH SOUNDS CLEAR, NO INDICATION FOR HHN PRN TX.
[2016-12-19 05:58] LABS: BLOOD GAS BASE EXCESS -0.2 mmol/L (-2.0-2.0); BLOOD GAS HCO3 24.6 mmol/L; BLOOD GAS O2 SAT% 95.3 % (92.0-98.5); BLOOD GAS PCO2 40.7 mmHg (20-50); BLOOD GAS PH 7.399 (7.35-7.45); BLOOD GAS PO2 77.1 mmHg
--- NOTE | 2016-12-19 06:00 | NUR ---
NO CHANGE OF CONDITION AT THIS TIME, VSS, POSITION CHANGED FOR OFF LOAD PRESSURE.
--- NOTE | 2016-12-19 06:01 | NUR ---
VENT CK DONE, NO CHANGED, SMALL SX FLYNN THIN, VITALS STABLE
[2016-12-19 06:41] LABS: HEMOGLOBIN 9.1 g/dL (12.0-18.0); MEAN CORPUSCULAR HEMOGLOBIN 28 pg (27-31); MEAN CORPUSCULAR HGB CONC 34 g/dL (33-37); MEAN CORPUSCULAR VOLUME 84 fL (80-94); PLATELET COUNT (AUTO) 64 K/uL (140-450); RED BLOOD CELL COUNT(AUTO) 3.23 MIL/uL (4.20-6.10); RED CELL DISTRIBUTION WIDTH 16.9 % (11.6-13.7); WHITE BLOOD COUNT (AUTO) 11.3 K/uL (4.8-10.8)
[2016-12-19] MEDS: BLOOD GLUCOSE MONITORING 1 DEV DEV FS SCH ×4 (06:46→20:29)
[2016-12-19] MEDS: MIDODRINE 5 MG TAB PO SCH ×3 (06:46→18:16)
--- NOTE | 2016-12-19 07:00 | NUR ---
PATIENT'S SISTER RICHARD INFORMED OF THE RESTRAINTS ORDERED YESTERDAY.
[2016-12-19 07:04] LABS: BAND % (MANUAL) 5 % (0-8); BASOPHILS % (MANUAL) 0 % (0-2); EOSINOPHILS % (MANUAL) 2 % (0-4); LYMPHOCYTES % (MANUAL) 3 % (20-46); MONOCYTES % (MANUAL) 2 % (5-12); NEUTROPHILS % (MANUAL) 88 (43-65); PLATELET ESTIMATE DECREASED
[2016-12-19 07:08] LABS: ANION GAP 10.3 (8-16); CALCIUM 6.7 mg/dL (8.5-10.1); CARBON DIOXIDE 27.6 mmol/L (21-32); CREATININE 2.2 mg/dL (0.7-1.3)
--- NOTE | 2016-12-19 07:10 | NUR ---
RECEIVED PATIENT FROM NIGHT RN FOR CONTINUITY OF CARE. PATIENT ASLEEP AT THIS TIME. ON ETT TO VENT. RIGHT NARES NGT ATTACHED TO LOW INTERMITTENT SUCTION. RIGHT IJ TRIPLE LUMEN CENTRAL LINE PROXIMAL PORT WITH DOPAMINE AT 10 MCG, DISTAL PORT WITH FENTANYL 50 MCG AND VERSED 3 CC/HR AND MEDIAL PORT SODIUM BICARB AT 100 CC/HR, DRESSING DRY AND INTACT. LEFT IJ CAMERON CATHETER, DOUBLE LUMEN, DRESSING DRY AND INTACT. SUPRAPUBIC CATHETER PATENT AND INTACT DRAINING TO BLOOD TINGE URINE IN SMALL AMOUNT. WITH SACRALCOCCYGEAL PRESSURE ULCER AND OPEN WOUNDS TO BLE, PENILE SHAFT AND LOWER ABDOMEN, WITH DRESSING DRY AND INTACT. BILATERAL SOFT WRIST RESTRAINTS NOTED. CALL LIGHT WITHIN REACH. WILL CONTINUE TO MONITOR PATIENT.
--- NOTE | 2016-12-19 07:10 | NUR ---
REPORT GIVEN TO LUZ MORRISON FOR CONTINUE OF CARE, PT IS IN STABLE CONDITION AT THIS TIME.
[2016-12-19 07:11] LABS: POTASSIUM 2.9 mmol/L (3.5-5.1)
[2016-12-19] MEDS: CALCIUM ACETATE 667 MG TAB PO SCH ×2 (08:00→17:14)
--- NOTE | 2016-12-19 08:00 | NUR ---
TURNED AND REPOSITIONED PATIENT AT THIS TIME. PATIENT IN STABLE CONDITION.
[2016-12-19] MEDS: SODIUM BICARBONATE 8.4% 150 MEQ in DEXTROSE 5% 1,000 ML IV SCH ×2 (08:46→20:48)
[2016-12-19] MEDS ORDERED: MAG SULF 2000 MG/WATER PREMIX 50 ML IV ONE (09:30)
[2016-12-19] MEDS ORDERED: KCL 20 MEQ/WATER INJ PREMIX 200 ML IV ONE ×2 (09:30→10:15)
--- NOTE | 2016-12-19 09:30 | NUR ---
MORNING MEDS ADMINISTERED, PATIENT TOLERATED WELL.
[2016-12-19] MEDS: SODIUM BICARBONATE 650 MG TAB PO SCH ×2 (09:34→20:31)
[2016-12-19] MEDS: ASPIRIN 81 MG TAB.CHEW GT SCH (09:35)
[2016-12-19] MEDS: RIFAXIMIN 550 MG TAB PO SCH ×2 (09:35→20:42)
[2016-12-19] MEDS: LACTOBACILLUS RHAMNOSUS GG 1 EACH CAP PO SCH (09:35)
[2016-12-19] MEDS: VIT-B COMP/VIT-C/FOLIC ACID 1 TAB PO SCH (09:35)
[2016-12-19] MEDS: NEOMYCIN 500 MG TAB PO SCH ×4 (09:36→20:31)
[2016-12-19] MEDS: MEROPENEM 500 MG in NACL 0.9% 50 ML IV SCH ×2 (09:36→20:30)
[2016-12-19] MEDS: ASCORBIC ACID 500 MG TAB PO SCH ×2 (09:36→20:31)
[2016-12-19] MEDS: LACTULOSE 20 GM/30 ML UDC PO SCH ×3 (09:37→17:14)
[2016-12-19] MEDS: PANTOPRAZOLE 40 MG INJ VIAL IVP SCH (09:37)
[2016-12-19] MEDS: INSULIN DETEMIR 100 UNITS/ML 10 ML VIAL SUBQ SCH ×2 (09:40→21:00)
[2016-12-19] MEDS: fentaNYL 1 MG in NACL 0.9% 80 ML IV PRN ×2 (09:54→19:33)
--- NOTE | 2016-12-19 10:15 | NUR ---
TURNED AND REPOSITIONED AT THIS TIME, PATIENT TOLERATED WELL.
--- NOTE | 2016-12-19 11:00 | NUR ---
PATIENT FAMILY AT BEDSIDE.
[2016-12-19] MEDS: THERAHONEY GEL 42.5 GM TP SCH ×2 (12:54→12:55)
[2016-12-19] MEDS: DRY DRESSING TP SCH ×2 (12:55)
[2016-12-19] MEDS: MIDAZOLAM MDV 50 MG in NACL 0.9% 40 ML IV PRN ×2 (13:15→21:34)
[2016-12-19] MEDS ORDERED: MAG SULF 2000 MG/WATER PREMIX 50 ML IV SCH (16:10)
--- NOTE | 2016-12-19 17:51 | NUR ---
CONTINUED TO MONITOR PT ON VENT WITH SETTINGS CHARTED BREATH SOUNDS PRESENT BILAT MILD SCATTERD RALES SXN PT WITH MIN BLOODTINGED SECS CHANGED ANCHORFAST NO ILL EFFECTS NOTED VENT PLUGGED INTO RED OUTLET AMBU BAG AT BEDSIDE
--- NOTE | 2016-12-19 19:13 | NUR ---
REPORT GIVEN TO NIGHT NURSE FOR CONTINUITY OF CARE. PATIENT IN STABLE CONDITION.
--- NOTE | 2016-12-19 19:41 | NUR ---
RECEIVED REPORT FROM TAMIKO ESCOBAR. PATIENT IS RESTING IN BED WITH NO SIGNS OF RESPIRATORY DISTRESS OR SOB NOTED. PATIENT IS ETT TO VENT WITH SETTINGS OF FIO2 28%, TIDAL VOLUME 500, PEEP 5, A/C 12. RESPIRATORY THERAPIST AT BEDSIDE. BREATH SOUNDS ARE CLEAR UPON AUSCULTATION. BOWEL SOUNDS ARE HYPOACTIVE. THERE IS A NGT CONNECTED TO LOW INTERMITTENT SUCTIONING IN THE PATIENT'S RIGHT NARES. THERE IS A SUPRAPUBIC CATHETER PRESENT WITH MINIMAL OUTPUT NOTED IN THE BAG OF HEMATURIA NOTED. THERE ARE WOUNDS ON BILATERAL LOWER EXTREMITIES. DRESSINGS ARE DRY AND INTACT. PATIENT HAS AN UNSTAGEABLE WOUND ON THE RIGHT HEEL AND PRESSURE ULCERS ON THE SACRAL AND RIGHT BUTTOCKS. THERE IS A TRIPLE LUMEN CATHETER IN THE RIGHT IJ RECEIVING DOPAMINE AT 10MCG/KG/MIN, FENTANYL AT 5 ML/HR, VERSED AT 5ML/HR, AND SODIUM BICARBONATE AT 100ML/HR. SITE IS DRY, INTACT, AND ASYMPTOMATIC. THERE IS A CAMERON CATHETER IN THE LEFT IJ FOR HEMODIALYSIS. SITE IS DRY, ASYMPTOMATIC, AND INTACT. HOB AT 30 DEGREES WITH BED IN LOW POSITION. WILL CONTINUE TO MONITOR PATIENT.
[2016-12-19] MEDS: SIMVASTATIN 20 MG TAB PO SCH (20:31)
[2016-12-19] MEDS: LATANOPROST 0.005% OP 2.5 ML BTL OP SCH (20:48)
--- NOTE | 2016-12-19 20:50 | NUR ---
TOLERATED DUE MEDICATIONS. NO SIGNS OF RESPIRATORY DISTRESS OR SOB NOTED. BLOOD SUGAR IS 94. NO INSULIN COVERAGE NEEDED AT THIS TIME. DID NOT ADMINISTER SCHEDULED 2100 HEPARIN 5000 UNITS SUBQ RELATED TO LOW PLATELET COUNT OF 64. CONTINUE TO MONITOR PATIENT.
--- NOTE | 2016-12-19 21:05 | NUR ---
VAP ORAL CARE RENDERED. REPOSITIONED PATIENT FOR COMFORT. NO SIGNS OF SOB OR RESPIRATORY DISTRESS OR SOB NOTED. HOB AT 30 DEGREES WITH BED IN LOW POSITION. WILL CONTINUE TO MONITOR PATIENT.
[2016-12-20] VITALS (101 sets, daily range): BP systolic 70–155; BP diastolic 23–98
[2016-12-20] MEDS: DOPamine 400 MG/D5W PREMIX 250 ML IV PRN ×4 (00:06→23:35)
--- NOTE | 2016-12-20 00:15 | NUR ---
VAP ORAL CARE RENDERED. NO SIGNS OF RESPIRATORY DISTRESS NOTED. HOB AT 30 DEGREES WITH BED IN LOW POSITION. CONTINUE TO MONITOR PATIENT.
--- NOTE | 2016-12-20 00:45 | NUR ---
PATIENT REPOSITIONED FOR COMFORT. NO S/S OF SOB OR RESPIRATORY DISTRESS NOTED. HOB AT 30 DEGREES WITH BED IN LOW POSITION. WILL CONTINUE TO MONITOR PATIENT.
[2016-12-20] MEDS: Z-GUARD PASTE TP SCH ×2 (00:49→13:00)
[2016-12-20] MEDS: THERAHONEY WOUND DRESSING TP SCH ×2 (00:49→13:00)
--- NOTE | 2016-12-20 00:55 | NUR ---
DR. UNDERWOOD PRESENT ON UNIT. PROVIDED MD WITH PATIENT'S STATUS. WILL FOLLOW UP WITH NEW DOCTOR'S ORDERS.
--- NOTE | 2016-12-20 01:18 | NUR ---
CHARGE NURSE SAUD ESCOBAR SPOKE TO AND NOTIFIED CHAZ WARNER.[facility] OF DR. UNDERWOOD'S ORDER FOR HEMODIALYSIS AT 0800 ON DECEMBER 20, 2016.
--- NOTE | 2016-12-20 02:15 | NUR ---
ROUNDED ON PATIENT. PATIENT AWAKE AND RESTING IN BED. NO SIGNS OF SOB OR DISTRESS NOTED. HOB AT 30 DEGREES WITH BED IN LOW POSITION. CONTINUE TO MONITOR PATIENT.
--- NOTE | 2016-12-20 03:40 | NUR ---
VENT CK DONE, PT ASLEEP, NO DISTRESS NOTED
--- NOTE | 2016-12-20 04:30 | NUR ---
MORNING CARE RENDERED. BED BATH PROVIDED. CHANGED GOWN AND LINENS. VAP ORAL CARE RENDERED. PATIENT REPOSITIONED FOR COMFORT. NO SIGNS OF RESPIRATORY DISTRESS NOTED. HOB AT 30 DEGREES WITH BED IN LOW POSITION. CONTINUE TO MONITOR PATIENT.
--- NOTE | 2016-12-20 04:40 | NUR ---
ENTRY LEVEL MARKETING ASSISTANT AT BEDSIDE FOR SCHEDULED LAB DRAWS.
--- NOTE | 2016-12-20 04:45 | NUR ---
BLOW MOLDER AT BEDSIDE FOR SCHEDULED CHEST XRAY.
[2016-12-20 04:49] LABS: EOSINOPHILS # (AUTO) 0.4 K/uL (0-0.4)
[2016-12-20 04:53] LABS: BASOPHILS # (AUTO) 0.5 K/uL (0.00-0.22); EOSINOPHILS % (AUTO) 3.3 % (0.0-4.0); HEMOGLOBIN 9.1 g/dL (12.0-18.0); LYMPHOCYTES # (AUTO) 0.6 K/uL (2.0-11.5); MEAN CORPUSCULAR HEMOGLOBIN 28 pg (27-31); MEAN CORPUSCULAR HGB CONC 34 g/dL (33-37); MEAN CORPUSCULAR VOLUME 83 fL (80-94); MONOCYTES # (AUTO) 0.5 K/uL (0.8-1.0); MONOCYTES % (AUTO) 4.2 % (1.7-9.3); NEUTROPHILS % (AUTO) 83.5 % (42.2-75.2); PLATELET COUNT (AUTO) 63 K/uL (140-450); RED BLOOD CELL COUNT(AUTO) 3.24 MIL/uL (4.20-6.10); RED CELL DISTRIBUTION WIDTH 17.4 % (11.6-13.7)
[2016-12-20 05:02] LABS: ANION GAP 9.1 (8-16); CALCIUM 6.9 mg/dL (8.5-10.1); CARBON DIOXIDE 30.3 mmol/L (21-32); CREATININE 2.4 mg/dL (0.7-1.3); POTASSIUM 3.4 mmol/L (3.5-5.1)
[2016-12-20] MEDS: fentaNYL 1 MG in NACL 0.9% 80 ML IV PRN ×2 (05:18→20:57)
--- NOTE | 2016-12-20 05:50 | NUR ---
PT ASLEEP, VENT CK DONE, HME CHANGED, CHANGED POSITION OF THE ET TUBE, NO DISTRESS NOTED
[2016-12-20] MEDS: MIDODRINE 5 MG TAB PO SCH ×3 (06:19→18:14)
[2016-12-20] MEDS: BLOOD GLUCOSE MONITORING 1 DEV DEV FS SCH ×4 (06:41→21:02)
[2016-12-20] MEDS ORDERED: DEXTROSE 50% 50 ML SYR IVP ONE (06:51)
--- NOTE | 2016-12-20 06:51 | NUR ---
BLOOD SUGAR IS 48. NOTIFIED ROLLER DR. MEDINA PUCKETT, WHO IS PRESENT ON UNIT. NEW ORDERS TO ADMINISTER D50% ABBOJECT IVP. CARRIED OUT DOCTOR'S ORDERS.
[2016-12-20] MEDS ORDERED: DEXTROSE 50% 50 ML SYR IVP PRN (06:55)
[2016-12-20] MEDS ORDERED: KCL 20 MEQ/WATER INJ PREMIX 100 ML IV SCH (07:05)
--- NOTE | 2016-12-20 07:10 | NUR ---
RECEIVED REPORT FROM NIGHT NURSE FOR CONTINUITY OF CARE. PATIENT IN STABLE CONDITION.
--- NOTE | 2016-12-20 07:15 | NUR ---
RECHECKED BLOOD SUGAR. BS IS 132. CONTINUE TO MONITOR PATIENT.
--- NOTE | 2016-12-20 07:19 | NUR ---
RESPIRATORY THERAPIST DEISY AT BEDSIDE FOR VENT CHECK. NO SIGNS OF RESPIRATORY DISTRESS OR SOB NOTED. ALL PATIENT'S NEEDS ATTENDED TO DURING SHIFT. ENDORSED CONTINUITY OF CARE TO TAMIKO ESCOBAR.
--- NOTE | 2016-12-20 07:25 | NUR ---
RECEIVED INTUBATED PT WITH 7.5 ETT @23 TEETH/GUM ON VENT. SETTINGS AC 12, VT 500, PEEP 5 AND FIO2 28%. ETT IS SECURE AND NO KINKING OR BITING OF ETT. PT SUCTIONED OBTAINED SMALL AMOUNT OF THICK CREAMY/BLOOD TINGED SECRETIONS, AIRWAY IS PATENT. VENT IS PLUGGED INTO RED OUTLET WITH ALARMS ON AND FUNCTIONING. WILL CONTINUE TO MONITOR.
--- NOTE | 2016-12-20 07:53 | NUR ---
ABG RESULTS GIVEN TO , PHYSICIAN REQUESTS PT BE WEANED TOLERATED AT THIS TIME. NO CRITICAL VALUES OF ABG RESULTS. Addendum: 12/20/16 at 0816 by Scott Thompson RT PT WEAN TOLERATED , NO ABG REQUESTED BY PHYSICIAN ON CPAP SETTINGS.
[2016-12-20 07:55] LABS: BLOOD GAS PCO2 42.5 mmHg (20-50); BLOOD GAS PH 7.398 (7.35-7.45)
[2016-12-20 07:56] LABS: BLOOD GAS BASE EXCESS 0.7 mmol/L (-2.0-2.0); BLOOD GAS HCO3 25.6 mmol/L; BLOOD GAS O2 SAT% 96.4 % (92.0-98.5); BLOOD GAS PO2 92.6 mmHg
--- NOTE | 2016-12-20 08:05 | NUR ---
PLACED PATIENT OFF OF SEDATION AT THIS TIME. FOR VENT WEANING. RT AT BEDSIDE.
--- NOTE | 2016-12-20 08:13 | NUR ---
PT TAKEN OFF OF SEDATION AND PLACED ON CPAP 5 PS 10 FIO2 28%. PT IS SLIGHTLY AGITATED. TOLERATING CPAP WELL AT THIS TIME. WILL CONTINUE TO MONITOR.
--- NOTE | 2016-12-20 08:23 | NUR ---
PATIENT STILL ON CPAP, TOLERATING WELL.
[2016-12-20] MEDS: CALCIUM ACETATE 667 MG TAB PO SCH ×2 (08:38→17:02)
[2016-12-20] MEDS: SODIUM BICARBONATE 650 MG TAB PO SCH ×2 (08:39→20:59)
[2016-12-20] MEDS: LACTOBACILLUS RHAMNOSUS GG 1 EACH CAP PO SCH (08:39)
[2016-12-20] MEDS: NEOMYCIN 500 MG TAB PO SCH ×4 (08:39→21:01)
[2016-12-20] MEDS: ASCORBIC ACID 500 MG TAB PO SCH ×2 (08:39→20:59)
[2016-12-20] MEDS: VIT-B COMP/VIT-C/FOLIC ACID 1 TAB PO SCH (08:39)
[2016-12-20] MEDS: ASPIRIN 81 MG TAB.CHEW GT SCH (08:39)
[2016-12-20] MEDS: LACTULOSE 20 GM/30 ML UDC PO SCH ×3 (08:40→17:02)
[2016-12-20] MEDS: PANTOPRAZOLE 40 MG INJ VIAL IVP SCH (08:40)
[2016-12-20] MEDS: RIFAXIMIN 550 MG TAB PO SCH ×2 (08:40→20:59)
[2016-12-20] MEDS: MEROPENEM 500 MG in NACL 0.9% 50 ML IV SCH ×2 (08:41→20:59)
[2016-12-20] MEDS: FOAM DRESSING TP SCH (09:00)
--- NOTE | 2016-12-20 09:17 | NUR ---
PATIENT STILL ON CPAP, TOLERATING WELL.
--- NOTE | 2016-12-20 09:17 | NUR ---
DIALYSIS ON GOING AT THIS TIME.
--- NOTE | 2016-12-20 09:55 | NUR ---
PT REMAINS ON CPAP TOLERATING WELL. PT IS NOT SOB AND NOT IN RESPIRATORY DISTRESS AT THIS TIME. WILL CONTINUE TO MONITOR.
--- NOTE | 2016-12-20 10:58 | NUR ---
12/20/16 RD FOLLOW UP COMPLETED PLEASE REFER TO NUTRITION PROGRESS NOTE UNDER CARE ACTIVITY FOR ESTIMATED NUTRITION NEEDS. RD RECOMMENDATIONS: 1. WHEN MEDICALLY APPROPRIATE, RESUME CURRENT ENTERAL FEEDING ORDERS. 2. RDN TO MONITOR WEIGHT TREND PT APPEARS TO BE GAINING (PT BMI OF 43 KG/M2, MORBID OBESITY WITH 4 KG WT GAIN X 4 DAYS). WT GAIN MAY BE D/T FLUID ACCUMULATION REPORTED BY NURSING. 3. RDN TO FOLLOW-UP 2-3 DAYS; HIGH RISK ROBERTO CHEEMA MS, RDN
--- NOTE | 2016-12-20 11:00 | NUR ---
PATIENT STILL ON CPAP, TOLERATING WELL. BP 121/75, RR 22, NH 93 AND SAT 97%.
--- NOTE | 2016-12-20 11:11 | NUR ---
VENT CHECK COMPLETED PT REMAINS ON CPAP, TOLERATING WELL. SPONTANEOUS VT 400-440, RR LOW 20'S. PT IS AGITATED TRYING TO SWINGS ARMS. WILL CONTINUE TO MONITOR. Addendum: 12/20/16 at 1344 by Scott Thompson RT PT NEVER SHOWED SIGNS OF SOB OR RESPIRATORY DISTRESS.
--- NOTE | 2016-12-20 11:30 | NUR ---
DR. JORDAN IN AND SEEN PATIENT, WILL FOLLOW UP WITH ORDERS.
--- NOTE | 2016-12-20 12:35 | NUR ---
DIALYSIS COMPLETED BY [employer]KER, 2L OUT.
--- NOTE | 2016-12-20 12:36 | NUR ---
PATIENT REMAINS ON CPAP, TOLERATING WELL. BP 103/71, OR 96, RR 18, SAT 99%. WILL CONTINUE TO MONITOR.
[2016-12-20] MEDS: THERAHONEY GEL 42.5 GM TP SCH ×2 (13:00)
[2016-12-20] MEDS: DRY DRESSING TP SCH ×2 (13:00)
--- NOTE | 2016-12-20 13:29 | NUR ---
NO RESPIRATORY DISTRESS NO SOB NOTED. WILL CONTINUE TO MONITOR.
--- NOTE | 2016-12-20 13:40 | NUR ---
PATIENT IS BECOMING AGITATED AT THIS TIME TRYING TO REACH TUBES. NOT ON RESPIRATORY DISTRESS. RT REQUESTED TO PUT PATIENT BACK ON AC SETTING. VERSED AND FENTANYL DRIP RESTARTED AT THIS TIME. WILL CONTINUE TO MONITOR PATIENT.
--- NOTE | 2016-12-20 13:42 | NUR ---
PT RETURNED TO ORIGINAL AC SETTINGS DUE TO PT TRYING TO REACH FOR ETT. PT IS NOT SOB AND NOT IN RESPIRATORY DISTRESS, VT AND RR REMAIN NORMAL. NURSE MOYA AND NURSE TAMIKO SANDOVAL.
--- NOTE | 2016-12-20 13:42 | NUR ---
PT BECOMING EXTREMELY AGITATED REACHING FOR ETT. RR, HR INCREASING.
[2016-12-20] MEDS ORDERED: METOCLOPRAMIDE 10 MG/2 ML INJ VIAL IVP PRN (15:20)
--- NOTE | 2016-12-20 15:30 | NUR ---
DR. RICARDO IN AND SEEN PATIENT, WILL FOLLOW UP WITH ORDERS
[2016-12-20] MEDS: MIDAZOLAM MDV 50 MG in NACL 0.9% 40 ML IV PRN (15:45)
--- NOTE | 2016-12-20 16:56 | NUR ---
PT REMAINS ON DOCUMENTED SETTINGS, PT IS NOT SOB AND NOT IN RESPIRATORY DISTRESS AT THIS TIME. PT REMAINS ON RESTRAINS BUT IS TRYING TO MOVE ARMS. VENT ALARMS REMAIN ON AND FUNCTIONING. OBTAINED THICK CREAMY/BLOOD TINGED SECRETIONS. AIRWAY IS PATENT AND ETT REMAINS SECURE.
[2016-12-20] MEDS: MORPHINE SULFATE 2 MG/ML SYR IVP PRN (17:53)
--- NOTE | 2016-12-20 19:22 | NUR ---
REPORT GIVEN TO NIGHT RN FOR CONTINUITY OF CARE. PATIENT IN STABLE CONDITION.
--- NOTE | 2016-12-20 19:25 | NUR ---
RECEIVED REPORT FORM TAMIKO RN AT BEDSIDE, PT IS RESTLESS AND AGITATED, OPEN EYES SPONTANEOUSLY, APHASIC DUE TO ETT TO VENT, UNABLE TO FOLLOW COMMANDS AND MAKE NEEDS KNOWN AT THIS TIME, VSS. ON ETT TO VENT WITH SETTING FIO2 28, AC 12, 500, 5, NO SOB/DISTRESS, BREATHING EVEN AND UNLABORED, CLEAR LUNG SOUNDS, O2 SAT AT 99%, SR ON WOOD PANEL INSPECTOR, GENERALIZED EDEMA NOTED, NG TUBE TO RIGHT NARES WITH POSITIVE PLACEMENT OF AUSCULTATION, RUNNING FIBERSOURCE AT 10 ML/HR, EXTENDED ABDOMEN WITH ACTIVE BOWEL SOUNDS, SUPRAPUBIC CATHETER IN PLACE WITH RED BROWN URINE NOTED, SKIN IS PALE IN COLOR, WARM AND DRY IN TOUCH, MULTIPLE OPEN WOUND NOTED (SEE WOUND ASSESSMENT), CENTRAL LINE TO RIGHT IJ TLC, PATENT TO EACH LUMEN, RUNNING DOPAMINE AT 8 MCG/MIN, FANTAYL AT 50 MCG, VERCID AT 5ML/HR SEVERER WEAKNESS TO BLE, TRYING TO PULL OUT TUBES, ON SOFT RESTRAIN TO MARY. WRISTS, HEAD ELEVATED 30 DEGREES, SAFETY MEASURES MAINTAINED, WILL CONTINUE TO MONITOR.
--- NOTE | 2016-12-20 20:10 | NUR ---
PT IS AWAKE, RESTLESS, NO S/S DISTRESS, ORAL CARE PROVIDED, POSITION CHANGED FOR OFF LOAD PRESSURE. VSS.
[2016-12-20] MEDS: SIMVASTATIN 20 MG TAB PO SCH (21:00)
[2016-12-20] MEDS: LINEZOLID 600 MG TAB PO SCH (21:00)
[2016-12-20] MEDS: LATANOPROST 0.005% OP 2.5 ML BTL OP SCH (21:00)
--- NOTE | 2016-12-20 21:00 | NUR ---
SCHEDULED MEDICATION GIVEN VIA NGT, PT TOLERATED WELL.
[2016-12-20] MEDS ORDERED: VANCOMYCIN 1GM/DEXT 5% PREMIX 200 ML IV SCH (22:00)
--- NOTE | 2016-12-20 22:00 | NUR ---
PT IS RESTING IN BED, NO S/S OF DISTRESS, VSS. POSITION CHANGED FOR OFF LOAD PRESSURE.
--- NOTE | 2016-12-20 22:48 | NUR ---
DR. UNDERWOOD CAME TO SEE PATIENT AT BEDSIDE, NO NEW ORDER AT THIS TIME.
[2016-12-21] VITALS (107 sets, daily range): BP systolic 68–180; BP diastolic 30–129
--- NOTE | 2016-12-21 | NUR ---
NO CHANGE OF CONDITION AT THIS TIME, ORAL CARE PROVIDED, POSITION CHANGED FOR OFF LOAD PRESSURE.
[2016-12-21] MEDS: THERAHONEY WOUND DRESSING TP SCH ×2 (00:44→13:00)
[2016-12-21] MEDS: Z-GUARD PASTE TP SCH ×2 (00:44→13:00)
[2016-12-21] MEDS: MIDAZOLAM MDV 50 MG in NACL 0.9% 40 ML IV PRN ×2 (00:44→07:35)
--- NOTE | 2016-12-21 02:00 | NUR ---
PT IS RESTING IN BED, NO S/S OF DISTRESS, VSS, POSITION CHANGED FOR OFF LOAD PRESSURE.
--- NOTE | 2016-12-21 04:00 | NUR ---
PT IS RESTING IN BED, VSS, NO S/S OF DISTRESS, ORAL CARE PROVIDED, AM CARE PROVIDED, WOUND DRESSING CHANGED, SUPRAPUBIC CATHETER CARE PROVIDED, POSITION CHANGED FOR OFF LOAD PRESSURE. WILL CONTINUE TO MONITOR.
[2016-12-21 04:50] LABS: HEMATOCRIT 28.5 % (36-52); HEMOGLOBIN 9.4 g/dL (12.0-18.0); MEAN CORPUSCULAR HEMOGLOBIN 28 pg (27-31); MEAN CORPUSCULAR HGB CONC 33 g/dL (33-37); MEAN CORPUSCULAR VOLUME 85 fL (80-94); PLATELET COUNT (AUTO) 68 K/uL (140-450); RED BLOOD CELL COUNT(AUTO) 3.35 MIL/uL (4.20-6.10); WHITE BLOOD COUNT (AUTO) 11.4 K/uL (4.8-10.8)
[2016-12-21 05:04] LABS: ANION GAP 10.7 (8-16); CALCIUM 7.5 mg/dL (8.5-10.1); CARBON DIOXIDE 28.8 mmol/L (21-32); CREATININE 2.1 mg/dL (0.7-1.3); POTASSIUM 3.5 mmol/L (3.5-5.1)
[2016-12-21 05:07] LABS: MAGNESIUM 1.7 mg/dL (1.8-2.4); PHOSPHORUS 3.6 mg/dL (2.5-4.9)
[2016-12-21 05:34] LABS: BAND % (MANUAL) 5 % (0-8); EOSINOPHILS % (MANUAL) 3 % (0-4); LYMPHOCYTES % (MANUAL) 2 % (20-46); MONOCYTES % (MANUAL) 6 % (5-12); NEUTROPHILS % (MANUAL) 84 (43-65)
[2016-12-21] MEDS ORDERED: MAG SULF 2000 MG/WATER PREMIX 50 ML IV ONE (05:40)
--- NOTE | 2016-12-21 06:00 | NUR ---
NO CHANGE OF CONDITION AT THIS TIME, VSS, POSITION CHANGED FOR OFF LOAD PRESSURE.
[2016-12-21] MEDS: MIDODRINE 5 MG TAB PO SCH ×3 (06:23→19:22)
[2016-12-21] MEDS: fentaNYL 1 MG in NACL 0.9% 80 ML IV PRN (06:56)
[2016-12-21] MEDS: BLOOD GLUCOSE MONITORING 1 DEV DEV FS SCH ×4 (06:59→20:45)
--- NOTE | 2016-12-21 07:11 | NUR ---
RECEIVED INTUBATED PT WITH 7.5 ETT @23 TEETH/GUM ON VENT. SETTINGS AC 12, VT 500, PEEP 5 AND FIO2 28%. ETT IS SECURE AND NO KINKING OR BITING OF ETT. PT SUCTIONED OBTAINED SMALL AMOUNT OF THICK CREAMY/BROWN COLORED SECRETIONS, AIRWAY IS PATENT. PT IS MOVING ARMS AROUND AND TURNING HEAD SIDE TO SIDE. PT IS NOT SOB AND NOT IN RESPIRATORY DISTRESS AT THIS TIME.AMBU BAG IS PRESENT AT BEDSIDE. VENT IS PLUGGED INTO RED OUTLET WITH ALARMS ON AND FUNCTIONING. WILL CONTINUE TO MONITOR.
--- NOTE | 2016-12-21 07:16 | NUR ---
REPORT GIVEN TO LUZ ARANDA AND LUZ CAST AT BEDSIDE FOR CONTINUE OF CARE, PT IS IN STABLE CONDITION AT THIS TIME.
--- NOTE | 2016-12-21 07:20 | NUR ---
RECEIVED REPORT FROM LUZ GILBERT. PT IS A/O X1. NONVERBAL. UNABLE TO FOLLOW COMMANDS. BILATERAL PERRL NOTED IN EYES. NO S/SX OF PAIN NOTED. PT ETT TO VENT. FIO2 28%, AC 12, TV 500, PEEP 5. SATURATING AT 97%. SR ON MONITOR. ABLE TO MOVE BILATERAL UPPER EXTREMITIES. PARAPLEGIC. CONTINUES TO TRY AND RAISE ARM TO HEAD WHERE ETT TUBE IS IN PLACED. CONTINUING RESTRAINTS PER ORDERED. MD AWARE. PT TOLERATING RESTRAINTS. SKIN TEAR NOTED ON LEFT WRIST. CLEANSED AND DRESSING PLACED. WILL CONTINUE TO MONITOR. R IJ TRIPLE LUMEN CENTRAL CATHETER NOTED. INTACT AND PATENT. INFUSING DOPAMINE AT 10 MCG/KG/HR. INFUSING FENTANYL AT 5 ML/HR. INFUSING VERSED AT 10 ML/HR. TOLERATING WELL. LEFT CAMERON CATH DOUBLE LUMEN NOTED. INTACT AND PATENT. WILL CONTINUE DIALYSIS TODAY PER ORDERED. NG TUBE TO RIGHT NARES NOTED. CONTINUING TUBE FEEDING ORDERED. MINIMAL RESIDUAL NOTED. TOLERATING WELL. WOUND NOTED ON ABDOMEN. DRESSING DRY AND INTACT. WOUND NOTED ON SACRUM AND R BUTTOCK. DRESSING DRY AND INTACT. WOUNDS NOTED ON BILATERAL LEGS. DRESSING DRY AND INTACT. WOUND NOTED ON PENIS. GAUZE IN PLACE. PT APPEARS TO BE DISTENDED IN THE ABDOMEN. ABDOMEN IS LARGE AND FIRM. BILATERAL LOWER EXTREMITIES NOTED +1 PITTING EDEMA. SCROTUM APPEARS TO BE SWOLLEN. SUPRAPUBIC CATHETER NOTED. SAFETY PRECAUTION MAINTAINED. BED AT LOWEST SETTING. CALL LIGHT WITHIN REACH. WILL CONTINUE TO MONITOR FOR CHANGES.
--- NOTE | 2016-12-21 07:36 | NUR ---
MEDICATION ADMINISTERED ORDERED. TOLERATED WELL. WILL CONTINUE TO MONITOR.
--- NOTE | 2016-12-21 07:46 | NUR ---
DR. CRUZ AND RESIDENT AT BEDSIDE TO SEE PT. WILL F/U WITH ANY NEW ORDERS.
--- NOTE | 2016-12-21 07:51 | NUR ---
FACILITY MAINTENANCE WORKER AT BEDSIDE TO START PT ON DIALYSIS. WILL HOLD MEDICATION APPROPRIATE. WILL CONTINUE TO MONITOR.
[2016-12-21] MEDS: CALCIUM ACETATE 667 MG TAB PO SCH ×2 (08:00→18:00)
[2016-12-21] MEDS: NACL 0.9% 1,000 ML IV SCH ×2 (08:16→18:06)
[2016-12-21] MEDS: LACTULOSE 20 GM/30 ML UDC PO SCH ×3 (08:17→18:00)
[2016-12-21] MEDS: VIT-B COMP/VIT-C/FOLIC ACID 1 TAB PO SCH (08:18)
[2016-12-21] MEDS: PANTOPRAZOLE 40 MG INJ VIAL IVP SCH (08:18)
[2016-12-21] MEDS: NEOMYCIN 500 MG TAB PO SCH ×4 (08:18→20:44)
[2016-12-21] MEDS: LACTOBACILLUS RHAMNOSUS GG 1 EACH CAP PO SCH (08:18)
[2016-12-21] MEDS: ASCORBIC ACID 500 MG TAB PO SCH (08:19)
--- NOTE | 2016-12-21 08:22 | NUR ---
DR. PUCKETT PAGED REGARDING MEDICATION QUESTION. AWAITING CALL BACK.
[2016-12-21] MEDS: ASPIRIN 81 MG TAB.CHEW GT SCH (08:26)
[2016-12-21] MEDS: SODIUM BICARBONATE 650 MG TAB PO SCH (08:36)
--- NOTE | 2016-12-21 08:37 | NUR ---
RECEIVED CALL BACK FROM DR. PUCKETT, WILL GIVEN ALL SCHEDULED ABX AFTER DIALYSIS IS DONE.
[2016-12-21] MEDS ORDERED: HYDROcodone/APAP 7.5/325 MG 1 TAB PO PRN (08:40)
[2016-12-21] MEDS ORDERED: MORPHINE SULFATE 2 MG/ML SYR IVP PRN (08:40)
[2016-12-21] MEDS ORDERED: MIDAZOLAM MDV 50 MG in NACL 0.9% 40 ML IV PRN (08:40)
--- NOTE | 2016-12-21 08:43 | NUR ---
WAS NOTIFIED BY JED COREA RN FROM DIALYSIS, HD CATHETER NOT WORKING. PAGED DR. UNDERWOOD, AWAITING FOR RESPONSE.
--- NOTE | 2016-12-21 09:06 | NUR ---
RE-PAGED DR. UNDERWOOD, AWAITING FOR RESPONSE.
--- NOTE | 2016-12-21 09:11 | NUR ---
SPOKE WITH DR. KIRBY MATTHEWS, MADE AWARE HD CATH NOT WORKING PER JED ESCOBAR FROM DIALYSIS, RECEIVED ORDER TO ADMINISTER ACTIVASE, AND RETRY HD. JED ESCOBAR AWARE, NOTED AND CARRIED OUT.
[2016-12-21] MEDS ORDERED: ALTEPLASE 2 MG VIAL MC SCH (09:19)
[2016-12-21] MEDS: THERAHONEY GEL 42.5 GM TP SCH ×2 (09:20→13:00)
--- NOTE | 2016-12-21 09:24 | NUR ---
PT RESTING WELL IN BED, NO SIGNS OF ACUTE DISTRESS. ENDORSED TO ASSIGNED AM NURSE FOR CONTINUITY OF CARE.
[2016-12-21] MEDS: LINEZOLID 600 MG TAB PO SCH ×2 (09:28→20:43)
[2016-12-21] MEDS: RIFAXIMIN 550 MG TAB PO SCH (09:28)
--- NOTE | 2016-12-21 09:30 | NUR ---
ACTIVASE GIVEN BY NAHOMY ADKINS RN. PER JED, WILL RETURN IN 3-4 HOURS TO RETRY DIALYSIS ACCORDING TO DR. ORR'S ORDERS. WILL CONTINUE TO MONITOR.
[2016-12-21] MEDS: MEROPENEM 500 MG in NACL 0.9% 50 ML IV SCH ×2 (09:33→20:42)
[2016-12-21] MEDS: DOPamine 400 MG/D5W PREMIX 250 ML IV PRN ×2 (09:38→19:32)
--- NOTE | 2016-12-21 09:43 | NUR ---
0 RESIDUAL NOTED. MEDICATION ADMINISTERED ORDERED. TOLERATED WELL. WILL CONTINUE TO MONITOR FOR CHANGE
--- NOTE | 2016-12-21 10:08 | NUR ---
STOP SEDATION. START CPAP TRIAL WITH RT AT BEDSIDE.
--- NOTE | 2016-12-21 10:12 | NUR ---
SEDATION STOPPED PT PLACED ON CPAP 5 PS 10 FIO2 28%. WILL MONITOR PT CLOSELY. VENT ALARMS ARE SET AND FUNCTIONING.
--- NOTE | 2016-12-21 10:25 | NUR ---
DR. ORR AT BEDSIDE TO SEE PT. WILL F/U WITH NEW ORDERS.
[2016-12-21] MEDS ORDERED: DOCUSATE 100 MG/10 ML UDC GT PRN (10:42)
[2016-12-21] MEDS ORDERED: FUROSEMIDE 100 MG/10 ML VIAL IV SCH (11:00)
--- NOTE | 2016-12-21 11:00 | NUR ---
PT RESTING IN BED COMFORTABLY. NO S/SX OF ACUTE DISTRESS NOTED. WILL CONTINUE TO MONITOR FOR CHANGES.
[2016-12-21 11:36] LABS: BLOOD GAS PH 7.416 (7.35-7.45)
[2016-12-21 11:37] LABS: BLOOD GAS BASE EXCESS 3.8 mmol/L (-2.0-2.0); BLOOD GAS HCO3 28.8 mmol/L; BLOOD GAS O2 SAT% 95.4 % (92.0-98.5); BLOOD GAS PCO2 45.9 mmHg (20-50); BLOOD GAS PO2 83.1 mmHg
--- NOTE | 2016-12-21 12:08 | NUR ---
PAGED WAITING FOR CALL BACK.
--- NOTE | 2016-12-21 12:23 | NUR ---
RECEIVED CALL BACK FROM DR. REYNAGA. WILL CARRY OUT NEW ORDER. SEDATION RESTARTED PT IS NOT TAKEN OFF OF CPAP.
--- NOTE | 2016-12-21 12:25 | NUR ---
BY REQUEST OF TO RETURN PT TO FULL VENTILATORY SUPPORT AT THIS TIME UNTIL HE COMES TO SEE PT. WILL CONTINUE TO MONITOR PT. PT RETURNED TO ORIGINAL AC 12, VT 500 , PEEP 5 AND FIO2 28%.
--- NOTE | 2016-12-21 12:25 | NUR ---
FAMILY AT BEDSIDE TO SEE PT.
[2016-12-21] MEDS: DRY DRESSING TP SCH ×2 (13:00)
--- NOTE | 2016-12-21 13:00 | NUR ---
MODERATE AMOUNT OF LOOSE BM NOTED. TAWANDA CARE GIVEN. TOLERATED WELL. WOUND CARE DONE ORDERED. TOLERATED WELL. WILL CONTINUE TO MONITOR.
--- NOTE | 2016-12-21 13:30 | NUR ---
JED AIRPLANE DISPATCH CLERK AT BEDSIDE TO REEVALUATE STATUS OF CAMERON CATHETER. PER JED, ALTEPLASE WAS NOT SUCCESSFUL. DR. ORR CONTACTED TO SPEAK WITH AIRPLANE DISPATCH CLERK. ORDER RECEIVED THAT MD WILL BE BY TO ASSESS. WILL CONTINUE TO MONITOR.
--- NOTE | 2016-12-21 15:33 | NUR ---
CLINICAL REVIEW DONE.
--- NOTE | 2016-12-21 16:39 | NUR ---
DR. MCCRAY AND DR. PUCKETT AT BEDSIDE TO SEE PT. WILL F/U WITH NEW ORDERS.
[2016-12-21 16:51] LABS: HEPATITIS A ANTIBODY IGM Negative (Negative); HEPATITIS A ANTIBODY TOTAL Positive (Negative); HEPATITIS B CORE AB TOTAL Negative (Negative); HEPATITIS B CORE, IGM Negative (Negative); HEPATITIS B SURFACE AB Non Reactive (.); HEPATITIS B SURFACE ANTIGEN Negative (Negative); HEPATITIS C VIRUS ANTIBODY 0.2 s/co ratio (0.0-0.9)
--- NOTE | 2016-12-21 17:17 | NUR ---
DR. PUCKETT AT BEDSIDE TO OBTAIN TELEPHONE CONSENT FROM PT'S SISTER FOR RIGHT VS LEFT CAMERON CATH PLACEMENT FOR HEMODIALYSIS. RN SPOKE WITH SISTER TOO WITNESS. PAPERWORK SIGNED.
--- NOTE | 2016-12-21 17:19 | NUR ---
PT REMAINS ON DOCUMENTED VENT SETTINGS NO CHANGES MADE AT THIS TIME. PT IS NOT SOB AND NOT IN RESPIRATORY DISTRESS. PT SUCTIONED OBTAINED SCANT AMOUNT OF THICK SECRETIONS,AIRWAY IS PATENT. ETT REMAINS SECURED. VENT ALARMS REMAIN ON AND FUNCTIONING.
--- NOTE | 2016-12-21 17:31 | NUR ---
DR. REYNAGA AT BEDSIDE TO SEE PT. WILL F/U WITH NEW ORDERS.
[2016-12-21] MEDS ORDERED: PROPOFOL 1000 MG/100 ML PREMIX 100 ML IV PRN (17:40)
[2016-12-21] MEDS: PROPOFOL 1000 MG/100 ML PREMIX 100 ML IV PRN (18:11)
--- NOTE | 2016-12-21 18:20 | NUR ---
DR. ORR AT BEDSIDE TO SEE PATIENT
--- NOTE | 2016-12-21 18:30 | NUR ---
TIMEOUT DONE AT BEDSIDE WITH DR. ORR AND 2 RN AND 2 RESIDENTS. WILL CONTINUE TO MONITOR.
--- NOTE | 2016-12-21 19:20 | NUR ---
ENDORSED REPORT TO LUZ QUICK. PT IS STABLE.
--- NOTE | 2016-12-21 19:21 | NUR ---
RECEIVED REPORT FROM SERENE ESCOBAR. PATIENT IS SEDATED AND RESTING COMFORTABLY IN BED. PATIENT IS ETT TO VENT WITH SETTINGS OF FIO2 28%, TIDAL VOLUME 500, A/C 12, AND PEEP OF 5. NO SIGNS OF RESPIRATORY DISTRESS OR SHORTNESS OF BREATH NOTED. BREATH SOUNDS ARE CLEAR UPON AUSCULTATION. NSR ON HYDRO SPRAYER OPERATOR. PATIENT'S VITALS ARE STABLE AND PATIENT IS AFEBRILE. PATIENT'S ABDOMEN IS LARGE, ROUND, AND DISTENDED. BOWEL SOUNDS ARE PRESENT. THERE IS A NGT IN THE RIGHT NARES WITH PATIENT RECEIVING FIBERSOURCE AT 10ML/HR. PATIENT IS TOLERATING FEEDING FAIRLY WITH 20 ML OF RESIDUAL NOTED. THERE IS A SUPRAPUBIC CATHETER IN PLACE WITH SCANT AMOUNT OF YELLOW URINE NOTED IN THE BAG. PATIENT HAS A WOUNDS TO THE BILATERAL LOWER EXTREMITIES, SACRAL AREA, AND RIGHT BUTTOCK. WOUNDS COVERED WITH DRESSINGS THAT ARE DRY AND INTACT. THERE IS A CAMERON CATHETER IN THE RIGHT IJ FOR HEMODIALYSIS. THERE IS ALSO A TRIPLE LUMEN CATHETER IN THE RIGHT IJ RECEIVING DOPAMINE AT 6 MCG/KG/MIN, NS AT 10 ML/HR TKO, AND PROPOFOL AT 6.62 ML/HR. INITIAL ASSESSMENT COMPLETED. HOB AT 30 DEGREES WITH BED IN LOW POSITION. WILL CONTINUE TO MONITOR PATIENT.
--- NOTE | 2016-12-21 19:22 | NUR ---
WEB MERCHANDISER AT BEDSIDE TO CONFIRM PLACEMENT OF CAMERON CATHETER PER DR. ORR'S ORDERS.
--- NOTE | 2016-12-21 19:27 | NUR ---
CALLED AND SPOKE TO CHAZ HUTIRON OF . ACUTE DIALYSIS REGARDING DR. BYRON ORR'S ORDERS FOR HEMODIALYSIS ON DECEMBER 22, 2016 AT 0600. CHAZ HUITRON CONFIRMED SHE WILL BE HERE IN THE MORNING. CHARGE NURSE DAVID ESCOBAR MADE AWARE.
--- NOTE | 2016-12-21 19:37 | NUR ---
DR. BYRON ORR CALLED AND REQUESTED FOR STAT DIALYSIS FOR TONIGHT. DR. ORR ASKED FOR DIALYSIS NURSE TO CALL HIM FOR FURTHER ORDERS ON HIS CELL PHONE.
--- NOTE | 2016-12-21 19:40 | NUR ---
CALLED AND SPOKE TO CHAZ HUITRON OF .. ACUTE DIALYSIS REGARDING DR. ORR'S ORDERS FOR STAT DIALYSIS FOR TONIGHT. SHE WILL CALL DR. ORR TO CLARIFY ORDERS.
--- NOTE | 2016-12-21 19:50 | NUR ---
VAP ORAL CARE RENDERED. NO SIGNS OF SOB OR RESPIRATORY DISTRESS NOTED.
--- NOTE | 2016-12-21 19:54 | NUR ---
CHAZ HUITRON [facility] DIAL[facility] SPOKE WITH CHARGE NURSE DAVID ESCOBAR. PER CHARGE NURSE DAVID, CHAZ HUITRON CLARIFIED ORDERS WITH DR. ORR AND DIALYSIS WILL BE SCHEDULED FOR 12/22/16 IN THE MORNING. WILL FOLLOW UP WITH ORDERS.
--- NOTE | 2016-12-21 20:00 | NUR ---
PATIENT VOIDED MODERATE AMOUNT OF YELLOW URINE ON PERIPAD. PERINEAL CARE PROVIDED. REPOSITIONED PATIENT FOR COMFORT. NO SIGNS OF RESPIRATORY DISTRESS NOTED. PATIENT IS SEDATED AND RESTING COMFORTABLY IN BED. BILATERAL SOFT WRIST RESTRAINTS REMOVED. HOB AT 30 DEGREES WITH BED IN LOW POSITION. WILL CONTINUE TO MONITOR PATIENT.
--- NOTE | 2016-12-21 20:50 | NUR ---
DR. JORDAN PRESENT AT BEDSIDE. PROVIDED MD WITH PATIENT'S STATUS. NO NEW ORDERS GIVEN AT THIS TIME.
[2016-12-21] MEDS: ASCORBIC ACID 500 MG/5 ML ORASYR GT SCH (20:56)
[2016-12-21] MEDS: LATANOPROST 0.005% OP 2.5 ML BTL OP SCH (20:56)
[2016-12-21] MEDS: SIMVASTATIN 20 MG TAB PO SCH (20:57)
[2016-12-21] MEDS: FUROSEMIDE 100 MG/10 ML VIAL IV SCH (20:57)
[2016-12-21] MEDS ORDERED: RIFAXIMIN 550 MG TAB PO SCH (21:00)
--- NOTE | 2016-12-21 21:07 | NUR ---
TOLERATED DUE MEDICATIONS. NO SIGNS OF DISTRESS OR SOB NOTED. HOB AT 30 DEGREES WITH BED IN LOW POSITION. CONTINUE TO MONITOR PATIENT.
--- NOTE | 2016-12-21 23:30 | NUR ---
VAP ORAL CARE RENDERED. PATIENT REPOSITIONED FOR COMFORT. NO SIGNS OF SOB OR RESPIRATORY DISTRESS NOTED. HOB AT 30 DEGREES WITH BED IN LOW POSITION. CONTINUE TO MONITOR PATIENT.
[2016-12-22] VITALS (106 sets, daily range): BP systolic 74–160; BP diastolic 42–106
[2016-12-22] MEDS: THERAHONEY WOUND DRESSING TP SCH ×2 (00:28→13:41)
[2016-12-22] MEDS: Z-GUARD PASTE TP SCH ×2 (00:28→13:41)
[2016-12-22] MEDS: ALBUTEROL SULFATE/IPRATROPIU 3 ML SOL IH PRN (01:10)
--- NOTE | 2016-12-22 01:10 | NUR ---
RESPIRATORY THERAPIST AT BEDSIDE.
--- NOTE | 2016-12-22 02:29 | NUR ---
PATIENT SEDATED AND RESTING COMFORTABLY IN BED WITH NO S/S OF ACUTE RESPIRATORY DISTRESS OR SOB NOTED. HOB AT 30 DEGREES WITH BED IN LOW POSITION. WILL CONTINUE TO MONITOR PATIENT.
[2016-12-22] MEDS: NACL 0.9% 1,000 ML IV SCH (04:00)
--- NOTE | 2016-12-22 04:00 | NUR ---
AM CARE RENDERED. BED BATH AND PERINEAL CARE PROVIDED. CHANGED BED LINENS AND PATIENT'S GOWN. PATIENT REPOSITIONED FOR COMFORT. VAP ORAL CARE RENDERED. HEAD OF THE BED AT 30 DEGREES WITH BED IN LOW POSITION. WILL CONTINUE TO MONITOR PATIENT.
--- NOTE | 2016-12-22 04:45 | NUR ---
BOBBIN PAINTER SHAYAN AT BEDSIDE FOR SCHEDULED LAB DRAWS.
[2016-12-22 04:51] LABS: BASOPHILS # (AUTO) 0.1 K/uL (0.00-0.22); EOSINOPHILS # (AUTO) 0.4 K/uL (0-0.4); EOSINOPHILS % (AUTO) 3.7 % (0.0-4.0); HEMATOCRIT 27.8 % (36-52); LYMPHOCYTES # (AUTO) 0.6 K/uL (2.0-11.5); LYMPHOCYTES % (AUTO) 5.6 % (20.5-51.1); MEAN CORPUSCULAR HEMOGLOBIN 28 pg (27-31); MEAN CORPUSCULAR HGB CONC 32 g/dL (33-37); MEAN CORPUSCULAR VOLUME 85 fL (80-94); MONOCYTES # (AUTO) 0.4 K/uL (0.8-1.0); MONOCYTES % (AUTO) 3.9 % (1.7-9.3); NEUTROPHILS # (AUTO) 8.8 K/uL (1.8-7.7); NEUTROPHILS % (AUTO) 85.8 % (42.2-75.2); PLATELET COUNT (AUTO) 56 K/uL (140-450); RED BLOOD CELL COUNT(AUTO) 3.28 MIL/uL (4.20-6.10); RED CELL DISTRIBUTION WIDTH 17.2 % (11.6-13.7)
[2016-12-22 05:24] LABS: ALBUMIN 1.3 g/dL (3.4-5.0); ANION GAP 10.6 (8-16); CALCIUM 7.4 mg/dL (8.5-10.1); CARBON DIOXIDE 27.9 mmol/L (21-32); CREATININE 2.4 mg/dL (0.7-1.3); MAGNESIUM 1.9 mg/dL (1.8-2.4); POTASSIUM 3.5 mmol/L (3.5-5.1); TOTAL BILIRUBIN 1.4 mg/dL (0.0-1.0); TOTAL PROTEIN, SERUM 5.7 g/dL (6.4-8.2)
--- NOTE | 2016-12-22 05:31 | NUR ---
CHANGED ANCHOR FAST AND MOVED TUBE TO LEFT SIDE OF LIP. AIRWAY IN PLACED DUE TO PT BITING THE TUBE. TUBE AT LIPLINE 23CM
--- NOTE | 2016-12-22 06:30 | NUR ---
METAL GAUGE MAKER KIM FROM [facility] ACUTE DIALYSIS PRESENT ON UNIT FOR SCHEDULED HEMODIALYSIS.
[2016-12-22 06:36] LABS: WHITE BLOOD COUNT (AUTO) 10.3 K/uL (4.8-10.8)
[2016-12-22] MEDS: BLOOD GLUCOSE MONITORING 1 DEV DEV FS SCH ×4 (06:44→20:35)
[2016-12-22] MEDS: MIDODRINE 5 MG TAB PO SCH ×3 (06:45→18:30)
[2016-12-22] MEDS: PROPOFOL 1000 MG/100 ML PREMIX 100 ML IV PRN ×3 (06:48→22:19)
--- NOTE | 2016-12-22 06:51 | NUR ---
RECEIVED PT ON CARESCAPE ON A/C 12 VT 500 PEEP5 FIO2 28 ALARMS ARE 0N AND FUNCTIONAL BMV HOB PTS ET TUBED SIZE 7.5 IS SECURE 23 CM ORAL AIRWAY IN PLACE RT CORNER OF MOUTH ANCHOR FAST IN PLACE PT IN HF ASLEEP HAVING DIALYSIS NO SOB NOTED VENT PLUGGED INTO RED OUTLET
--- NOTE | 2016-12-22 07:20 | NUR ---
ENDORSED CONTINUITY OF CARE TO ROULA ESCOBAR.
--- NOTE | 2016-12-22 07:30 | NUR ---
RECEIVED REPORT FROM YNES ESCOBAR. PATIENT IS SEDATED AND HEMODIALYSIS IN PROGRESS. ETT TO VENT WITH SETTINGS OF FIO2 28%, TIDAL VOLUME 500, A/C 12, AND PEEP OF 5. NO SIGNS OF RESPIRATORY DISTRESS NOTED. CUPOLA CHARGER SHOWS SR. NGT IN THE RIGHT NARES RECEIVING FIBERSOURCE AT 10ML/HR. PATIENT TOLERATING FEEDING WELL WITH 5 ML OF RESIDUAL NOTED.ABDOMEN IS LARGE, ROUND, AND DISTENDED. BOWEL SOUNDS ACTIVE. SUPRAPUBIC CATHETER IN PLACE WITH SCANT AMOUNT OF YELLOW URINE NOTED . SKIN NON INTACT ( SEE WOUND ASSESSMENT). CAMERON CATHETER IN THE RIGHT IJ FOR HEMODIALYSIS. TRIPLE LUMEN CATHETER IN THE RIGHT IJ RECEIVING DOPAMINE AT 6 MCG/KG/MIN, NS AT 10 ML/HR TKO, AND PROPOFOL AT 10 MCG/HR. HOB AT 30 DEGREES WITH BED IN LOW POSITION. NO FEVER.WILL CONTINUE TO MONITOR PATIENT.
--- NOTE | 2016-12-22 08:00 | NUR ---
AND RESIDENTS MAKING ROUNDS, UPDATED PT'S CONDITION.PER DR. APONTE, DO NOT GIVE DOPAMINE LESS THAN 5 MCG/KG/MIN WHICH MAY CAUSE HYPOTENSION.
--- NOTE | 2016-12-22 08:24 | NUR ---
VENT CHECK BS DIMINISHED PT IN HF IRRITABLE DIALYSIS IN PLACE
[2016-12-22] MEDS: THERAHONEY GEL 42.5 GM TP SCH ×2 (09:00→13:41)
--- NOTE | 2016-12-22 09:00 | NUR ---
DIALYSIS IN PROGRESS, HOLD DUE MEDS. AND CHARGE NURSE AWARE.
--- NOTE | 2016-12-22 10:20 | NUR ---
DIALYSIS DONE WITH 2 LITERS OUTPUT.
--- NOTE | 2016-12-22 10:38 | NUR ---
VENT CHECK PT IRRITABLE BS DIMINISHED
--- NOTE | 2016-12-22 10:42 | NUR ---
12/22/16 RD FOLLOW-UP ASSESSMENT COMPLETED PLEASE REFER TO NUTRITION ASSESSMENT UNDER CARE ACTIVITY FOR ESTIMATED NUTRITIONAL NEEDS. 1. CONTINUE EN SUPPORT - FIBERSOURCE HN AT 10 ML/HR, ADVANCE 10 ML Q8H TO A GOAL RATE OF 70 ML/HR (PROVIDES 2016 KCAL, 90 G PROTEIN, 1357 ML FREE WATER - MEETS 100% KCAL + 70% PROTEIN ESTIMATED NEEDS) 2. RD TO FOLLOW-UP 2-3 DAYS; HIGH RISK PARAMJIT GALVAN, RD
[2016-12-22] MEDS: ASCORBIC ACID 500 MG/5 ML ORASYR GT SCH ×2 (10:50→20:26)
[2016-12-22] MEDS: LACTOBACILLUS RHAMNOSUS GG 1 EACH CAP PO SCH (10:51)
[2016-12-22] MEDS: VIT-B COMP/VIT-C/FOLIC ACID 1 TAB PO SCH (10:51)
[2016-12-22] MEDS: PANTOPRAZOLE 40 MG INJ VIAL IVP SCH (10:52)
[2016-12-22] MEDS: LACTULOSE 20 GM/30 ML UDC PO SCH ×3 (10:52→17:36)
[2016-12-22] MEDS: LINEZOLID 600 MG TAB PO SCH ×2 (10:52→20:27)
[2016-12-22] MEDS: ASPIRIN 81 MG TAB.CHEW GT SCH (10:54)
[2016-12-22] MEDS: NEOMYCIN 500 MG TAB PO SCH ×4 (10:55→20:27)
[2016-12-22] MEDS: FUROSEMIDE 100 MG/10 ML VIAL IV SCH ×2 (10:56→20:36)
[2016-12-22] MEDS: MEROPENEM 500 MG in NACL 0.9% 50 ML IV SCH ×2 (10:57→20:31)
--- NOTE | 2016-12-22 11:15 | NUR ---
PER DIALYSIS NURSE JED RN. RIGHT IJ TLC LEAKING DURING DIALYSIS. DRESSING CHANGED AT 1030, NO LEAKING NOTED AT THIS TIME. NOTIFIED DR. ORR NEPHRO AND DR. PUCKETT RESIDENT.
--- NOTE | 2016-12-22 11:30 | NUR ---
CHAZ FROM [facility] DIALYSIS NOTIFIED OF DR. ORR'S HEMODIALYSIS ORDER FOR TOMORROW.
--- NOTE | 2016-12-22 11:43 | NUR ---
STOPPED DOPAMINE DRIP AT 1110 AFTER PT HAD CONSECUTIVE SBP OVER 140S, CHARGE NURSE AWARE. AT 1121 BP DROPS TO 74/42 AND RESTARTED PT ON DOPAMINE DRIP. RECHECKED BP AT 1143 SHOWS 97/67.
--- NOTE | 2016-12-22 11:45 | NUR ---
TURNED AND REPOSITIONED PT, PT HAD LARGE AMOUNT OF LOOSE YELLOW STOOL, CLEANED PT. ORAL CARE GIVEN. SUCTIONED PT WITH CLEAR SECRETION.
[2016-12-22] MEDS: DOPamine 400 MG/D5W PREMIX 250 ML IV PRN (11:57)
[2016-12-22] MEDS: INSULIN LISPRO SLIDING SCALE 100 UNITS/ML VIAL SUBQ PRN ×2 (12:04→20:44)
--- NOTE | 2016-12-22 13:11 | NUR ---
VEN5T CHECK BS DIMINISHED I\ LAVAGE AND SX FIDEL GONZALES
[2016-12-22] MEDS: DRY DRESSING TP SCH ×2 (13:41)
--- NOTE | 2016-12-22 15:11 | NUR ---
VENT CHECK BS DIMINISHED Addendum: 12/22/16 at 1514 by Keisha Potts RT PT SLEEPING
--- NOTE | 2016-12-22 16:40 | NUR ---
PT IS SEDATED, RASS -3, NO S/S OF RESPIRATORY DISTRESS NOTED. STILL ON DOPAMINE DRIP AT 5 MCG/KG/MIN. LEFT CAMERON CATH ASPIRATED WITH POSITIVE BLOOD RETURN, CHANGE IV TO LEFT CAMERON CATH PER ORDER.
--- NOTE | 2016-12-22 17:10 | NUR ---
VENT CHECK BS DIMINISHED PT WEARING SOFT MITTENS
--- NOTE | 2016-12-22 18:39 | NUR ---
PT FREQUENT NON PURPOSEFUL MOVEMENT. INCREASED PROPOFOL DRIP TO 13.24 MLS/HR. CHARGE NURSE AWARE.
--- NOTE | 2016-12-22 18:55 | NUR ---
RECEIVED PT ON THE CURRENT VENT SETTINGS, ALARMS ON, NO RESP DISTRESS NOTED, SX PT MOD BLOODY SX
--- NOTE | 2016-12-22 19:28 | NUR ---
RECEIVED REPORT FROM ROULA ESCOBAR. PATIENT IS SEDATED AND RESTING COMFORTABLY IN BED. PATIENT IS ETT TO VENT WITH SETTINGS OF FIO2 28%, TIDAL VOLUME 500, A/C 12, AND PEEP OF 5. NO SIGNS OF RESPIRATORY DISTRESS OR SHORTNESS OF BREATH NOTED. BREATH SOUNDS ARE CLEAR UPON AUSCULTATION. NSR ON PAGINATOR. PATIENT'S VITALS ARE STABLE AND PATIENT IS AFEBRILE. PATIENT'S ABDOMEN IS LARGE, ROUND, AND DISTENDED. BOWEL SOUNDS ARE PRESENT. THERE IS A NGT IN THE RIGHT NARES WITH PATIENT RECEIVING FIBERSOURCE AT 20ML/HR. PATIENT IS TOLERATING FEEDING FAIRLY WITH 20 ML OF RESIDUAL NOTED. THERE IS A SUPRAPUBIC CATHETER IN PLACE WITH SCANT AMOUNT OF YELLOW URINE NOTED IN THE BAG. PATIENT HAS A WOUNDS TO THE BILATERAL LOWER EXTREMITIES, SACRAL AREA, AND RIGHT BUTTOCK. WOUNDS COVERED WITH DRESSINGS THAT ARE DRY AND INTACT. THERE IS A CAMERON CATHETER IN THE RIGHT IJ FOR HEMODIALYSIS. THERE IS ALSO A CAMERON CATHETER IN THE RIJ RECEIVING DOPAMINE AT 5 MCG/KG/MIN, NS AT 5 ML/HR TKO, AND PROPOFOL AT 13.24 ML/HR. INITIAL ASSESSMENT COMPLETED. HOB AT 30 DEGREES WITH BED IN LOW POSITION. WILL CONTINUE TO MONITOR PATIENT.
[2016-12-22] MEDS: SIMVASTATIN 20 MG TAB PO SCH (20:27)
[2016-12-22] MEDS: LATANOPROST 0.005% OP 2.5 ML BTL OP SCH (20:44)
--- NOTE | 2016-12-22 20:50 | NUR ---
TOLERATED DUE MEDICATIONS. BLOOD SUGAR IS 168. PROVIDED HUMALOG INSULIN BASED PER SLIDING SCALE. VAP ORAL CARE RENDERED. NO SIGNS OF DISTRESS OR SOB NOTED. HOB AT 30 DEGREES WITH BED IN LOW POSITION. WILL CONTINUE TO MONITOR PATIENT.
--- NOTE | 2016-12-22 21:50 | NUR ---
DR. JORDAN PRESENT ON UNIT. PROVIDED MD WITH PATIENT'S STATUS. NO NEW ORDERS RECEIVED AT THIS TIME. CONTINUE TO MONITOR.
--- NOTE | 2016-12-22 23:30 | NUR ---
PM AND PERINEAL CARE PROVIDED. REPOSITIONED FOR COMFORT. NO SIGNS OF RESPIRATORY DISTRESS NOTED. HOB AT 30 DEGREES WITH BED IN LOW POSITION. CONTINUE TO MONITOR PATIENT. Addendum: 12/22/16 at 2344 by Karla Ware RN BED BATH PROVIDED. CHANGED BED LINENS AND GOWN.
[2016-12-23] VITALS (90 sets, daily range): BP systolic 42–194; BP diastolic 26–116
--- NOTE | 2016-12-23 00:05 | NUR ---
VAP ORAL CARE RENDERED. NO SIGNS OF SOB OR RESPIRATORY DISTRESS NOTED. HOB AT 30 DEGREES WITH BED IN LOW POSITION. CONTINUE TO MONITOR PATIENT.
[2016-12-23] MEDS: THERAHONEY WOUND DRESSING TP SCH ×2 (00:19→13:01)
[2016-12-23] MEDS: Z-GUARD PASTE TP SCH ×2 (00:19→13:01)
[2016-12-23] MEDS: DOPamine 400 MG/D5W PREMIX 250 ML IV PRN ×2 (00:21→17:11)
--- NOTE | 2016-12-23 01:33 | NUR ---
VENT CK DONE, NO CHANGES DURING THE NIGHT, NO DISTRESS NOTED
--- NOTE | 2016-12-23 01:45 | NUR ---
BP 143/75 AND HR 83. OXYGEN SATURATION 100%. HELD DOPAMINE. CHARGE NURSE DAVID RN AWARE. CONTINUE TO MONITOR PATIENT.
--- NOTE | 2016-12-23 02:20 | NUR ---
BP 42/26 AND HR 76. RESUMED DOPAMINE AT 5MCG/KG/MIN. WILL CONTINUE TO MONITOR PATIENT. Addendum: 12/23/16 at 0234 by Karla Ware RN OXYGEN SATURATION IS 97%.
--- NOTE | 2016-12-23 02:30 | NUR ---
BLOOD PRESSURE IS 123/67 AND HR 71. OXYGEN SATURATION 99%. CONTINUE TO MONITOR.
--- NOTE | 2016-12-23 04:45 | NUR ---
[employer] BPM ARCHITECT SHAYAN AT BEDSIDE FOR SCHEDULED LAB DRAWS.
[2016-12-23 04:47] LABS: HEMATOCRIT 27.8 % (36-52); HEMOGLOBIN 9.1 g/dL (12.0-18.0); MEAN CORPUSCULAR HEMOGLOBIN 27 pg (27-31); MEAN CORPUSCULAR HGB CONC 33 g/dL (33-37); MEAN CORPUSCULAR VOLUME 84 fL (80-94); PLATELET COUNT (AUTO) 48 K/uL (140-450); RED BLOOD CELL COUNT(AUTO) 3.33 MIL/uL (4.20-6.10); RED CELL DISTRIBUTION WIDTH 17.2 % (11.6-13.7); WHITE BLOOD COUNT (AUTO) 11.3 K/uL (4.8-10.8)
--- NOTE | 2016-12-23 05:00 | NUR ---
MORNING CARE AND PERINEAL CARE PROVIDED. REPOSITIONED PATIENT FOR COMFORT. VAP ORAL CARE RENDERED. NO SIGNS OF RESPIRATORY DISTRESS NOTED. HOB AT 30 DEGREES WITH BED IN LOW POSITION. WILL CONTINUE TO MONITOR PATIENT.
--- NOTE | 2016-12-23 05:47 | NUR ---
VENT CK DONE, CHANGED HME AND DE LA CRUZ, SX SMALL CLOUDY AND BLOODY SECRETION, NO DISTRESS NOTED
[2016-12-23] MEDS: PROPOFOL 1000 MG/100 ML PREMIX 100 ML IV PRN ×3 (06:07→21:24)
--- NOTE | 2016-12-23 06:15 | NUR ---
BP 114/64, HR 81, OXYGEN SATURATION 99%. HELD DOPAMINE DRIP. WILL CONTINUE TO MONITOR.
[2016-12-23 06:23] LABS: ALBUMIN 1.3 g/dL (3.4-5.0); ANION GAP 10.5 (8-16); CALCIUM 7.3 mg/dL (8.5-10.1); CARBON DIOXIDE 27.6 mmol/L (21-32); CREATININE 1.9 mg/dL (0.7-1.3); POTASSIUM 3.1 mmol/L (3.5-5.1); TOTAL BILIRUBIN 1.4 mg/dL (0.0-1.0); TOTAL PROTEIN, SERUM 5.7 g/dL (6.4-8.2)
[2016-12-23] MEDS: MIDODRINE 5 MG TAB PO SCH ×3 (06:35→19:01)
[2016-12-23] MEDS: BLOOD GLUCOSE MONITORING 1 DEV DEV FS SCH ×4 (06:41→20:44)
--- NOTE | 2016-12-23 06:45 | NUR ---
HR 72, BP 51/30, OXYGEN SATURATION 95%. RESUMED DOPAMINE DRIP AT 5 MCG/KG/MIN. CHARGE NURSE MADE AWARE. CONTINUE TO MONITOR.
[2016-12-23 06:46] LABS: BAND % (MANUAL) 4 % (0-8); LYMPHOCYTES % (MANUAL) 6 % (20-46); NEUTROPHILS % (MANUAL) 86 (43-65)
[2016-12-23 06:47] LABS: MONOCYTES % (MANUAL) 4 % (5-12); PLATELET ESTIMATE DECREASED
--- NOTE | 2016-12-23 06:55 | NUR ---
RESPIRATORY THERAPIST NELA AT BEDSIDE. NO SIGNS OF SOB NOTED. CONTINUE TO MONITOR.
--- NOTE | 2016-12-23 06:57 | NUR ---
RECEIVED PT ON CARESCAPE R860. A/C 12, VT 500, PEEP 5, FIO2- 28 %. ALARMS ARE ON AND FUNCTIONAL. BNV AT BEDSIDE. PT'S ET TUBE IS SECURE 23 CM, ANCHOR FAST IN PLACE. BS INSP WHEEZE, PT IN HF. QUITE. HHN WILL BE GIVEN WITH 3 MG DUONEB ORAL AIRWAY PLACED. VENT PLUGGED INTO RED OUTLET Addendum: 12/23/16 at 0851 by Keisha Potts RT QUIET
[2016-12-23] MEDS: ALBUTEROL SULFATE/IPRATROPIU 3 ML SOL IH PRN ×2 (07:11→11:12)
--- NOTE | 2016-12-23 07:15 | NUR ---
ALL PATIENT'S NEEDS ATTENDED TO DURING SHIFT. ENDORSED CONTINUITY OF CARE TO ROULA ESCOBAR.
--- NOTE | 2016-12-23 07:30 | NUR ---
RECEIVED REPORT FROM YNES ESCOBAR. PATIENT IS SEDATED . ETT TO VENT WITH SETTINGS OF FIO2 28%, TIDAL VOLUME 500, A/C 12, AND PEEP OF 5. NO SIGNS OF RESPIRATORY DISTRESS NOTED. C JAVA DEVELOPER SHOWS SR. NGT IN THE RIGHT NARES RECEIVING FIBERSOURCE AT 20 ML/HR. NO RESIDUAL NOTED.ABDOMEN IS LARGE, ROUND, AND DISTENDED. BOWEL SOUNDS ACTIVE. SUPRAPUBIC CATHETER IN PLACE WITH SCANT AMOUNT OF YELLOW URINE NOTED . SKIN NON INTACT ( SEE WOUND ASSESSMENT). CAMERON CATHETER IN THE RIGHT IJ FOR HEMODIALYSIS. LEFT IJ CATH RECEIVING DOPAMINE AT 5 MCG/KG/MIN AND PROPOFOL AT 18 MCG/KG/MIN. HOB AT 30 DEGREES WITH BED IN LOW POSITION. NO FEVER.WILL CONTINUE TO MONITOR PATIENT.
[2016-12-23] MEDS: PANTOPRAZOLE 40 MG INJ VIAL IVP SCH (08:39)
[2016-12-23] MEDS: FUROSEMIDE 100 MG/10 ML VIAL IV SCH ×2 (08:40→20:54)
[2016-12-23] MEDS: ASPIRIN 81 MG TAB.CHEW GT SCH (08:41)
[2016-12-23] MEDS: LACTOBACILLUS RHAMNOSUS GG 1 EACH CAP PO SCH (08:41)
[2016-12-23] MEDS: ASCORBIC ACID 500 MG/5 ML ORASYR GT SCH ×2 (08:41→20:49)
[2016-12-23] MEDS: VIT-B COMP/VIT-C/FOLIC ACID 1 TAB PO SCH (08:41)
[2016-12-23] MEDS: NEOMYCIN 500 MG TAB PO SCH ×4 (08:42→20:50)
[2016-12-23] MEDS: MEROPENEM 500 MG in NACL 0.9% 50 ML IV SCH ×2 (08:43→21:09)
--- NOTE | 2016-12-23 08:47 | NUR ---
VENT CHECK BS CRACKLES I\L LAVAGE AND SX SM BLOOD TINGED SECRETIONS
[2016-12-23] MEDS: LINEZOLID 600 MG TAB PO SCH ×2 (08:59→20:50)
[2016-12-23] MEDS: FOAM DRESSING TP SCH (09:00)
[2016-12-23] MEDS: THERAHONEY GEL 42.5 GM TP SCH ×2 (09:00→13:01)
--- NOTE | 2016-12-23 09:30 | NUR ---
DUE MEDS GIVEN. PT TOLERATED WELL. PT MODERATE AMOUNT OF YELLOW BROWN LOOSE BM. CLEANED PT.
--- NOTE | 2016-12-23 11:04 | NUR ---
VENT CHECK BS INSP WHEEZE\CRACKLES HHN WILL BE GIVEN 3 MG DUONEB PT IN HF QUIET I\L LAVAGE AND SX SM RED TINGED SECRETIONS
--- NOTE | 2016-12-23 11:50 | NUR ---
ORAL CARE GIVEN. TURNED AND REPOSITIONED PT.
[2016-12-23] MEDS: INSULIN LISPRO SLIDING SCALE 100 UNITS/ML VIAL SUBQ PRN ×2 (11:58→21:26)
[2016-12-23] MEDS: DRY DRESSING TP SCH ×2 (13:01)
[2016-12-23] MEDS ORDERED: POTASSIUM CHLORIDE 20% 40 MEQ/15 ML UDC GT SCH (13:03)
--- NOTE | 2016-12-23 13:09 | NUR ---
VENT CHECK. B/S CRACKLES. PT QUIET.
--- NOTE | 2016-12-23 13:57 | NUR ---
CLINICAL REVIEW DONE.
--- NOTE | 2016-12-23 15:00 | NUR ---
VENT CHECK BS CRACKLES ORAL AIRWAY IN PLACE
--- NOTE | 2016-12-23 15:40 | NUR ---
DIALYSIS NURSE CHAZ HUITRON STARTED DIALYSIS.
--- NOTE | 2016-12-23 17:18 | NUR ---
VENT CHECK DONE. B/S CRACKLES. PT RECEIVING DIALYSIS.
--- NOTE | 2016-12-23 18:34 | NUR ---
DIALYSIS DONE, TOTAL OUT PUT 3500 ML.
--- NOTE | 2016-12-23 19:13 | NUR ---
RECEIVED PT ON THE SAME VENT SETTINGS, ALARMS ON, BS ARE BILAT CLEAR ANS DIMINISHED BILAT, SX SMALL CLEAR SX, NO DISTRESS NOTE
--- NOTE | 2016-12-23 19:15 | NUR ---
REPORT GIVEN TO NIGHT RN.
--- NOTE | 2016-12-23 19:20 | NUR ---
RECEIVED REPORT FROM LUZ CELESTE. INITIAL ASSESSMENT COMPLETED. PT IS SEDATED, RASS -3. PT IS ON ETT TO VENT, FIO2 28%, TV 500 AC 12 PEEP 5. ATTACHED TO CUSTOMER SERVICE DRIVER, PULSE OXIMETER. HD ACCESS AT RIGHT IJ CAMERON CATH DOUBLE LUMEN, IV ACCESS AT LEFT IJ CAMERON CATH DOUBLE LUMEN ORDERED, PT IS ON PROPOFOL AND DOPAMINE DRIP. NGT TO RIGHT NARE IN PLACE, PATENT, NO RESIDUAL AT THIS TIME. ON CONTINUOUS NGT FEEDING, PT TOLERATING FEEDING WELL. WOUNDS DRY AND INTACT AT THIS TIME. PLEASE SEE WOUND ASSESSMENT. SUPRAPUBIC CATH IN PLACE. BLE NOTED +2 PITTING EDEMA. BED IN LOW POSITION, SAFETY MEASURE ENSURE, CONTACT PRECAUTION MAINTAIN. RT AT BEDSIDE AT THIS TIME. WILL CONTINUE TO MONITOR.
--- NOTE | 2016-12-23 19:30 | NUR ---
CHAZ HUITRON NOTIFIED FOR TOMORROW'S HEMODIALYSIS SCHEDULE.
--- NOTE | 2016-12-23 20:45 | NUR ---
DR. JORDAN IN TO SEE PATIENT. WILL FOLLOW UP ORDERS.
[2016-12-23] MEDS: LACTULOSE 20 GM/30 ML UDC PO SCH (20:49)
[2016-12-23] MEDS: SIMVASTATIN 20 MG TAB PO SCH (20:54)
[2016-12-23] MEDS: LATANOPROST 0.005% OP 2.5 ML BTL OP SCH (21:19)
--- NOTE | 2016-12-23 22:00 | NUR ---
DR. GÓMEZ MCLEOD AT BEDSIDE, UPDATED OF PATIENT'S CONDITION, NO NEW ORDERS MADE.
--- NOTE | 2016-12-23 23:02 | NUR ---
PT ASLEEP,VENT CK DONE NO DISTRESS NOTED,
[2016-12-24] VITALS (107 sets, daily range): BP systolic 43–163; BP diastolic 17–113
--- NOTE | 2016-12-24 00:30 | NUR ---
PT ASLEEP. NO DISTRESS NOTED AT THIS TIME.
--- NOTE | 2016-12-24 01:15 | NUR ---
VENT CK DONE, NO CHANGES IN PT STATUS, OR VENT SETTUINGS, NO DISTRESS NOTED
[2016-12-24] MEDS: THERAHONEY WOUND DRESSING TP SCH ×2 (02:00→13:23)
[2016-12-24] MEDS: Z-GUARD PASTE TP SCH ×2 (02:00→13:23)
[2016-12-24] MEDS: PROPOFOL 1000 MG/100 ML PREMIX 100 ML IV PRN ×4 (02:46→18:35)
[2016-12-24] MEDS: DOPamine 400 MG/D5W PREMIX 250 ML IV PRN (02:47)
--- NOTE | 2016-12-24 03:00 | NUR ---
MORNING CARE DONE. PT TOLERATED WELL.
[2016-12-24 04:47] LABS: BASOPHILS # (AUTO) 0.4 K/uL (0.00-0.22); BASOPHILS % (AUTO) 3.1 % (0.0-2.0); EOSINOPHILS # (AUTO) 0.3 K/uL (0-0.4); EOSINOPHILS % (AUTO) 2.6 % (0.0-4.0); HEMATOCRIT 28.8 % (36-52); HEMOGLOBIN 9.3 g/dL (12.0-18.0); LYMPHOCYTES # (AUTO) 1.1 K/uL (2.0-11.5); MEAN CORPUSCULAR HEMOGLOBIN 27 pg (27-31); MEAN CORPUSCULAR HGB CONC 32 g/dL (33-37); MEAN CORPUSCULAR VOLUME 84 fL (80-94); MONOCYTES # (AUTO) 0.4 K/uL (0.8-1.0); MONOCYTES % (AUTO) 3.9 % (1.7-9.3); NEUTROPHILS # (AUTO) 9.2 K/uL (1.8-7.7); NEUTROPHILS % (AUTO) 80.4 % (42.2-75.2); PLATELET COUNT (AUTO) 46 K/uL (140-450); RED BLOOD CELL COUNT(AUTO) 3.45 MIL/uL (4.20-6.10); RED CELL DISTRIBUTION WIDTH 16.8 % (11.6-13.7); WHITE BLOOD COUNT (AUTO) 11.4 K/uL (4.8-10.8)
--- NOTE | 2016-12-24 05:09 | NUR ---
PT ASLEEP ALL NIGHT, CHANGED HME, SX SMALL CLEAR SECRETION, NO DISTRESS NOTED
--- NOTE | 2016-12-24 05:30 | NUR ---
NO SOB NOTED AT THIS TIME.
--- NOTE | 2016-12-24 05:45 | NUR ---
DR. SAM AT BEDSIDE EVALUATING PT. DR. SAM UPDATED OF PT'S CONDITION. DR. SAM AWARE PT HAS NO OUTPUT AT SUPRAPUBIC CATH BUT HAS LEAKING (URINE) IN THE PENILE AREA. WILL CONTINUE TO MONITOR.
[2016-12-24 06:30] LABS: ANION GAP 13.7 (8-16); CALCIUM 7.6 mg/dL (8.5-10.1); CARBON DIOXIDE 25.4 mmol/L (21-32); CREATININE 2.2 mg/dL (0.7-1.3); POTASSIUM 4.1 mmol/L (3.5-5.1)
[2016-12-24] MEDS: BLOOD GLUCOSE MONITORING 1 DEV DEV FS SCH ×4 (06:33→21:07)
[2016-12-24] MEDS: MIDODRINE 5 MG TAB PO SCH ×4 (06:35→18:35)
[2016-12-24] MEDS: INSULIN LISPRO SLIDING SCALE 100 UNITS/ML VIAL SUBQ PRN ×3 (06:58→21:21)
--- NOTE | 2016-12-24 07:03 | NUR ---
RECEIVED PATIENT ON A [employer] R860 VENTILATOR PLUGGE INTO RED OUTLET TOLERATING WELL WITHOUT INCIDENT TO AN ETT #7.5 SECURES WITH AN ANCHOR FAST AT 23 CM RIGHT SIDE CUFF PRESSURE CHECKED FOR MOV AMBU BAG NOTED AT [facility] LOC QUIET RESPONSIVE TO PHYSICAL STIMULUS BREATH SOUNDS RHONCHI BILATERAL WITH GODD CHEST RISE ENDOTRACHEAL SUCTION FOR MODERATE THICK YELLOW BLOOD SECRETIONS AIRWAY PATENT SATURATION 100% ON FIO2 28% POST HHN THERAPY TITRATED FIO2 TO 24%
[2016-12-24] MEDS: ALBUTEROL SULFATE/IPRATROPIU 3 ML SOL IH PRN ×2 (07:27→11:41)
--- NOTE | 2016-12-24 07:30 | NUR ---
REPORT GIVEN TO LUZ CAST AND LUZ JADE FOR CONTINUITY OF CARE. PT IS ON STABLE CONDITION AT THIS TIME.
--- NOTE | 2016-12-24 07:30 | NUR ---
RECEIVED REPORT FROM LUZ DOWD. PT IS A/O X1. NONVERBAL. UNABLE TO FOLLOW COMMANDS. BILATERAL PERRL NOTED IN EYES. NO S/SX OF PAIN NOTED. PT ETT TO VENT. FIO2 28%, AC 12, TV 500, PEEP 5. SATURATING AT 97%. SR ON MONITOR. ABLE TO MOVE BILATERAL UPPER EXTREMITIES. PARAPLEGIC. R IJ CAMERON CATHETER NOTED. INTACT AND PATENT. L IJ CAMERON CATHETER NOTED. INTACT AND PATENT INFUSING DOPAMINE DRIP. INFUSING PROPOFOL DRIP. RASS -3. WILL CONTINUE DIALYSIS TODAY PER ORDERED. NG TUBE TO RIGHT NARES NOTED. CONTINUING TUBE FEEDING ORDERED. MINIMAL RESIDUAL NOTED. TOLERATING WELL. WOUND NOTED ON ABDOMEN. DRESSING DRY AND INTACT. WOUND NOTED ON SACRUM AND R BUTTOCK. DRESSING DRY AND INTACT. WOUNDS NOTED ON BILATERAL LEGS. DRESSING DRY AND INTACT. WOUND NOTED ON PENIS. GAUZE IN PLACE. PT APPEARS TO BE DISTENDED IN THE ABDOMEN. ABDOMEN IS LARGE AND FIRM. BILATERAL LOWER EXTREMITIES NOTED +2 PITTING EDEMA. SCROTUM APPEARS TO BE SWOLLEN. SUPRAPUBIC CATHETER NOTED. SAFETY PRECAUTION MAINTAINED. BED AT LOWEST SETTING. CALL LIGHT WITHIN REACH. WILL CONTINUE TO MONITOR FOR CHANGES.
--- NOTE | 2016-12-24 08:00 | NUR ---
DR. FOLEY AND GROUP AT BEDSIDE TO SEE PT. WILL F/U WITH NEW ORDERS.
--- NOTE | 2016-12-24 09:07 | NUR ---
RESTING WELL NO DISTRESS NOTED BREATH SOUNDS DIMINISHED BILATERAL WITH GOOD CHEST RISE EQUIPMENT CHANGED: BREATHING CIRCUIT AND BACTERIAL FILTER TOLERATED WELL WITHOUT ADVERSE REACTIONS NOTED
--- NOTE | 2016-12-24 09:08 | NUR ---
DR. SAM AND DR. CARTER IN TO SEE PT. WILL FOLLOW UP ON ORDERS
[2016-12-24] MEDS: PHENYLEPHRINE 10 MG in NACL 0.9% 250 ML IV PRN ×4 (09:23→16:24)
[2016-12-24] MEDS: ASCORBIC ACID 500 MG/5 ML ORASYR GT SCH ×2 (09:41→21:19)
[2016-12-24] MEDS: LACTOBACILLUS RHAMNOSUS GG 1 EACH CAP PO SCH (09:41)
[2016-12-24] MEDS: MEROPENEM 500 MG in NACL 0.9% 50 ML IV SCH ×2 (09:42→21:19)
[2016-12-24] MEDS: LINEZOLID 600 MG TAB PO SCH ×2 (09:42→21:19)
[2016-12-24] MEDS: VIT-B COMP/VIT-C/FOLIC ACID 1 TAB PO SCH (09:43)
[2016-12-24] MEDS: FUROSEMIDE 100 MG/10 ML VIAL IV SCH ×2 (09:43→21:18)
[2016-12-24] MEDS: NEOMYCIN 500 MG TAB PO SCH ×5 (09:43→21:20)
[2016-12-24] MEDS: PANTOPRAZOLE 40 MG INJ VIAL IVP SCH (09:43)
[2016-12-24] MEDS: THERAHONEY GEL 42.5 GM TP SCH ×2 (09:44→13:23)
--- NOTE | 2016-12-24 09:54 | NUR ---
NO RESIDUAL NOTED. NG PLACEMENT CHECKED. MEDICATION ADMINISTERED ORDERED. TOLERATED WELL. WILL CONTINUE TO MONITOR.
--- NOTE | 2016-12-24 09:54 | NUR ---
DR. MCLEOD IN TO SEE PT. WILL FOLLOW UP ON ORDERS.
--- NOTE | 2016-12-24 10:07 | NUR ---
12/24/16 RD FOLLOW-UP ASSESSMENT COMPLETED PLEASE REFER TO NUTRITION ASSESSMENT UNDER CARE ACTIVITY FOR ESTIMATED NUTRITIONAL NEEDS. 1. CONTINUE EN SUPPORT - FIBERSOURCE HN AT 20 ML/HR, ADVANCE TOLERATED TO GOAL RATE OF 50 ML/HR + ADD PROSOURCE TID (WILL PROVIDE 1620 KCAL, 109 G PROTEIN, 969 ML FREE WATER - MEETS 90% KCAL + 86% PROTEIN ESTIMATED NEEDS) 2. RD TO FOLLOW-UP 2-3 DAYS; HIGH RISK PARAMJIT GALVAN, MADELIN
--- NOTE | 2016-12-24 10:30 | NUR ---
PT HAD EPISODE OF DIARRHEA. PERICARE GIVEN. WOUND CARE DONE.
--- NOTE | 2016-12-24 11:00 | NUR ---
PT RESTING IN BED. RASS -3. NO S/SX OF ACUTE DISTRESS NOTED. RESIDENT IS STABLE.
--- NOTE | 2016-12-24 12:13 | NUR ---
CHIEF STRATEGY OFFICERJED AT BEDSIDE TO SEE PT. WILL START DIALYSIS.
--- NOTE | 2016-12-24 13:11 | NUR ---
DR. ORR AT BEDSIDE TO SEE PT. WILL F/U WITH NEW ORDERS.
[2016-12-24] MEDS: DRY DRESSING TP SCH ×2 (13:23)
--- NOTE | 2016-12-24 13:33 | NUR ---
0 RESIDUAL NOTED. NG PLACEMENT CHECKED. MEDICATION ADMINISTERED ORDERED. TOLERATED WELL.
--- NOTE | 2016-12-24 13:49 | NUR ---
NO PULMONARY DISTRESS NOTED GOOD CHEST RISE HEMODIALYSIS IN PROGRESS
--- NOTE | 2016-12-24 15:36 | NUR ---
RESTING COMFORTABLY NO DISTRESS NOTED GOOD CHEST RISE HEMODIALYSIS COMPLETED AT THIS TIME
--- NOTE | 2016-12-24 16:15 | NUR ---
DR. REYNAGA AT BEDSIDE TO SEE PT. WILL F/U WITH NEW ORDERS
--- NOTE | 2016-12-24 16:25 | NUR ---
HEMODIALYSIS TREATMENT COMPLETE. 3L OUTPUT.
--- NOTE | 2016-12-24 16:53 | NUR ---
0 RESIDUAL NOTED. ADMINISTERED MEDICATION ORDERED. TOLERATED WELL. WILL CONTINUE TO MONITOR.
--- NOTE | 2016-12-24 17:30 | NUR ---
PT RESTING IN BED. RASS -3. CONTINUING PROPOFOL AND NEOSYNEPHRINE DRIP. TOLERATING WELL.
[2016-12-24] MEDS: PHENYLEPHRINE 40 MG in NACL 0.9% 250 ML IV PRN (18:37)
--- NOTE | 2016-12-24 19:21 | NUR ---
REPORT GIVEN TO LUZ GILBERT. PT IS STABLE.
--- NOTE | 2016-12-24 19:22 | NUR ---
RECEIVED REPORT FORM LUZ JADE AND SERENE RN AT BEDSIDE, PT IS SEDATED, UNABLE TO FOLLOW COMMANDS AND MAKE NEEDS KNOWN, FLACC 0, VSS. ON ETT TO VENT WITH SETTING FIO2 25, AC 12, 500, 5, NO SOB/DISTRESS, BREATHING EVEN AND UNLABORED, CLEAR LUNG SOUNDS, O2 SAT AT 100%, SR ON RECREATION DIRECTOR, GENERALIZED EDEMA NOTED, NG TUBE TO RIGHT NARES WITH POSITIVE PLACEMENT OF AUSCULTATION, RUNNING FIBERSOURCE AT 30 ML/HR, WITH 30 ML RESIDUAL NOTED, LARGE SOFT ABDOMEN WITH ACTIVE BOWEL SOUNDS, SUPRAPUBIC CATHETER IN PLACE WITH CLOUDY YELLOW URINE NOTED, SKIN IS PALE IN COLOR, WARM AND DRY IN TOUCH, MULTIPLE OPEN WOUND NOTED (SEE WOUND ASSESSMENT), CAMERON CATHETER TO RIGHT IJ FOR HD, CENTRAL LINE TO LEFT IJ, DOUBLE LUMEN, PATENT TO EACH LUMEN, RUNNING PROPOFOL AT 15 MCG, JESSICA-SYNEPHRINE AT 60MCG, GENERALIZED WEAKNESS TO ALL EXTREMITIES, HEAD ELEVATED 30 DEGREES, SAFETY MEASURES MAINTAINED, WILL CONTINUE TO MONITOR.
--- NOTE | 2016-12-24 20:10 | NUR ---
VSS. NO S/S OF DISTRESS, ORAL CARE PROVIDED, POSITION CHANGED FOR OFF LOAD PRESSURE. PATIENT HAD A SOFT MODERATE BROWN STOOL, TAWANDA CARE PROVIDED.
[2016-12-24] MEDS: LACTULOSE 20 GM/30 ML UDC PO SCH (21:00)
[2016-12-24] MEDS: SIMVASTATIN 20 MG TAB PO SCH (21:19)
[2016-12-24] MEDS: LATANOPROST 0.005% OP 2.5 ML BTL OP SCH (21:19)
--- NOTE | 2016-12-24 21:45 | NUR ---
DR. JORDAN CAME TO SEE PATIENT, NEW ORDER OBTAINED, WILL CARRY OUT.
--- NOTE | 2016-12-24 22:00 | NUR ---
NO CHANGE OF CONDITION AT THIS TIME, VSS, NO S/S OF DISTRESS, POSITION CHANGED FOR OFF LOAD PRESSURE.
[2016-12-25] VITALS (107 sets, daily range): BP systolic 60–151; BP diastolic 24–105
--- NOTE | 2016-12-25 | NUR ---
NO S/S OF DISTRESS, VSS, ORAL CARE PROVIDED, POSITION CHANGED FOR OFF LOAD PRESSURE.
[2016-12-25] MEDS: Z-GUARD PASTE TP SCH ×2 (01:14→13:33)
[2016-12-25] MEDS: THERAHONEY WOUND DRESSING TP SCH ×2 (01:14→13:33)
[2016-12-25] MEDS: DRY DRESSING TP PRN (01:15)
[2016-12-25] MEDS: THERAHONEY WOUND DRESSING TP PRN (01:16)
[2016-12-25] MEDS: Z-GUARD PASTE TP PRN (01:16)
[2016-12-25] MEDS: PROPOFOL 1000 MG/100 ML PREMIX 100 ML IV PRN ×3 (01:55→17:35)
--- NOTE | 2016-12-25 02:00 | NUR ---
VSS, NO CHANGE OF CONDITION AT THIS TIME, POSITION CHANGED FOR OFF LOAD PRESSURE.
[2016-12-25] MEDS ORDERED: PIPERACILLIN/TAZOBACTAM 2.25 GM VIAL IV ONE (03:16)
--- NOTE | 2016-12-25 04:00 | NUR ---
VSS, NO S/S OF DISTRESS, ORAL CARE PROVIDED, AM CARE PROVIDED, WOUND DRESSING CHANGED, SUPRAPUBIC CATHETER CARE PROVIDED, PT HAD A LARGE AMOUNT OF YELLOWISH LOOSE STOOL, TAWANDA CARE PROVIDED, POSITION CHANGED FOR OFF LOAD PRESSURE. WILL CONTINUE TO MONITOR.
[2016-12-25 04:51] LABS: BASOPHILS # (AUTO) 0.1 K/uL (0.00-0.22); BASOPHILS % (AUTO) 0.9 % (0.0-2.0); EOSINOPHILS # (AUTO) 0.4 K/uL (0-0.4); EOSINOPHILS % (AUTO) 3.2 % (0.0-4.0); HEMOGLOBIN 8.8 g/dL (12.0-18.0); LYMPHOCYTES # (AUTO) 0.8 K/uL (2.0-11.5); LYMPHOCYTES % (AUTO) 6.3 % (20.5-51.1); MEAN CORPUSCULAR HEMOGLOBIN 27 pg (27-31); MEAN CORPUSCULAR HGB CONC 33 g/dL (33-37); MEAN CORPUSCULAR VOLUME 84 fL (80-94); MONOCYTES # (AUTO) 0.5 K/uL (0.8-1.0); MONOCYTES % (AUTO) 4.1 % (1.7-9.3); NEUTROPHILS # (AUTO) 11.3 K/uL (1.8-7.7); NEUTROPHILS % (AUTO) 85.5 % (42.2-75.2); PLATELET COUNT (AUTO) 47 K/uL (140-450); RED BLOOD CELL COUNT(AUTO) 3.23 MIL/uL (4.20-6.10); RED CELL DISTRIBUTION WIDTH 16.8 % (11.6-13.7)
[2016-12-25] MEDS: PIPER/TAZO 2.25GM/D5W PREMIX 50 ML IV SCH ×3 (04:59→20:54)
[2016-12-25 05:57] LABS: CALCIUM 7.4 mg/dL (8.5-10.1); CARBON DIOXIDE 23.7 mmol/L (21-32); CREATININE 2.5 mg/dL (0.7-1.3); POTASSIUM 3.7 mmol/L (3.5-5.1)
[2016-12-25 05:59] LABS: MAGNESIUM 1.5 mg/dL (1.8-2.4); PHOSPHORUS 2.6 mg/dL (2.5-4.9)
--- NOTE | 2016-12-25 06:00 | NUR ---
VSS, NO CHANGE OF CONDITION AT THIS TIME, POSITION CHANGED FOR OFF LOAD PRESSURE.
[2016-12-25] MEDS: MIDODRINE 5 MG TAB PO SCH ×3 (06:25→18:53)
[2016-12-25] MEDS: BLOOD GLUCOSE MONITORING 1 DEV DEV FS SCH ×4 (06:35→20:51)
[2016-12-25] MEDS: INSULIN LISPRO SLIDING SCALE 100 UNITS/ML VIAL SUBQ PRN ×3 (06:36→21:18)
[2016-12-25 06:48] LABS: WHITE BLOOD COUNT (AUTO) 13.1 K/uL (4.8-10.8)
--- NOTE | 2016-12-25 07:10 | NUR ---
RECEIVED REPORT FROM NIGHT NURSE FOR CONTINUITY OF CARE. RIGHT CAMERON CATHETER NOTED, WITH DRESSING DRY AND INTACT. LEFT CAMERON NOTED, WITH PROPOFOL RUNNING AT 20MCG AND NEOSYNEPHRINE AT [address] WITH SMALL AMOUNT OF URINE IN SMALL AMOUNT. ETT TO VENT FI02 25%, VOL 500 AND PEEP 5, PATIENT TOLERATING WELL, O2 SAT 100%. BLE, SACRALCOCCYX AND ABDOMEN DRESSING, DRY AND INTACT. CALL LIGHT WITHIN REACH. WILL MONITOR PATIENT.
--- NOTE | 2016-12-25 07:19 | NUR ---
REPORT GIVEN TO LUZ MORRISON AT BEDSIDE FOR CONTINUE OF CARE, PT IS IN STABLE CONDITION AT THIS TIME
--- NOTE | 2016-12-25 07:23 | NUR ---
recived pt on vent with settings as charted breath present bilat clear sxn pt with min amt pink tinged secs ambu bag at bedside vent plugged into red outlet will continue to monitor pt on vent
--- NOTE | 2016-12-25 07:50 | NUR ---
SEEN BY AT BEDSIDE.NO ORDER RECEIVED , NO EGD OR PEG. INSERTION UNTIL ASCITES IS CONTROL.
--- NOTE | 2016-12-25 08:10 | NUR ---
TURNED AND REPOSITIONED AT THIS TIME. PATIENT TOLERATED WELL.
[2016-12-25] MEDS: FUROSEMIDE 100 MG/10 ML VIAL IV SCH ×2 (08:25→20:55)
[2016-12-25] MEDS: PANTOPRAZOLE 40 MG INJ VIAL IVP SCH (08:25)
--- NOTE | 2016-12-25 08:30 | NUR ---
DUE MORNING MEDS GIVEN. PATIENT TOLERATED WELL.
[2016-12-25] MEDS: ASCORBIC ACID 500 MG/5 ML ORASYR GT SCH ×2 (08:38→20:52)
[2016-12-25] MEDS: LACTOBACILLUS RHAMNOSUS GG 1 EACH CAP PO SCH (08:39)
[2016-12-25] MEDS: NEOMYCIN 500 MG TAB PO SCH ×4 (08:39→20:52)
[2016-12-25] MEDS: VIT-B COMP/VIT-C/FOLIC ACID 1 TAB PO SCH (08:39)
[2016-12-25] MEDS ORDERED: MAG SULF 2000 MG/WATER PREMIX 50 ML IV SCH (10:00)
--- NOTE | 2016-12-25 10:30 | NUR ---
RESTING QUIETLY AT THIS TIME. IN STABLE CONDITION. WILL CONTINUE TO MONITOR PATIENT.
[2016-12-25] MEDS: THERAHONEY GEL 42.5 GM TP SCH ×2 (13:00→13:33)
[2016-12-25] MEDS: DRY DRESSING TP SCH ×2 (13:32→13:33)
--- NOTE | 2016-12-25 14:06 | NUR ---
FAMILY AT BEDSIDE, CONCERNS AND QUESTIONS ANSWERED.
--- NOTE | 2016-12-25 14:22 | NUR ---
CM NOTE PER FIDENCIO URRUTIA, UNABLE TO TAKE PATIENT AT THIS TIME D/T NO BEDS AVAILABLE (IN [place] [facility] [place]) AND PATIENT RECEIVING DAILY HEMODIALYSIS/FLUID REMOVAL SESSIONS. WILL CONTINUE TO FOLLOW PATIENT AND REASSESS AT A LATER TIME.
[2016-12-25] MEDS: PHENYLEPHRINE 40 MG in NACL 0.9% 250 ML IV PRN ×2 (14:57→23:08)
--- NOTE | 2016-12-25 17:45 | NUR ---
VENT CHECK COMPLETED, PT PRESENTING NOT SOB, NO RESPIRATORY DISTRESS, ALARMS ARE ON AND FUNCTIONING, ETT REMAINS SECURE.
--- NOTE | 2016-12-25 18:05 | NUR ---
DIALYSIS DONE 1.4L OUT. PATIENT TOLERATED PROCEDURE WELL.
--- NOTE | 2016-12-25 19:15 | NUR ---
RECEIVED REPORT FORM LUZ MORRISON AT BEDSIDE, PT IS SEDATED, UNABLE TO FOLLOW COMMANDS AND MAKE NEEDS KNOWN, FLACC 0, VSS. ON ETT TO VENT WITH SETTING FIO2 28, AC 12, 500, 5, NO SOB/DISTRESS, BREATHING EVEN AND UNLABORED, CLEAR LUNG SOUNDS, O2 SAT AT 100%, SR ON IDEA MAN, NG TUBE TO RIGHT NARES WITH POSITIVE PLACEMENT OF AUSCULTATION, RUNNING FIBERSOURCE AT 30 ML/HR, WITH 5 ML RESIDUAL NOTED, LARGE SOFT ABDOMEN WITH ACTIVE BOWEL SOUNDS, SUPRAPUBIC CATHETER IN PLACE WITH CLOUDY YELLOW URINE NOTED, SKIN IS PALE IN COLOR, WARM AND DRY IN TOUCH, MULTIPLE OPEN WOUND NOTED (SEE WOUND ASSESSMENT), CAMERON CATHETER TO RIGHT IJ FOR HD, CENTRAL LINE TO LEFT IJ, DOUBLE LUMEN, PATENT TO EACH LUMEN, RUNNING PROPOFOL AT 20 MCG, JESSICA-SYNEPHRINE AT 90 MCG, SEVERE WEAKNESS TO ALL EXTREMITIES, HEAD ELEVATED 30 DEGREES, SAFETY MEASURES MAINTAINED, WILL CONTINUE TO MONITOR.
--- NOTE | 2016-12-25 19:15 | NUR ---
REPORT GIVEN TO NIGHT RN FOR CONTINUITY OF CARE. PATIENT IN STABLE CONDITION.
--- NOTE | 2016-12-25 20:10 | NUR ---
DR. QUINONES AT BEDSIDE, PT IS SEDATED, VSS, NO CHANGE OF CONDITION AT THIS TIME, ORAL CARE PROVIDED, POSITION CHANGED FOR OFF LOAD PRESSURE.
[2016-12-25] MEDS: LACTULOSE 20 GM/30 ML UDC PO SCH (20:52)
[2016-12-25] MEDS: LATANOPROST 0.005% OP 2.5 ML BTL OP SCH (20:52)
[2016-12-25] MEDS: SIMVASTATIN 20 MG TAB PO SCH (20:52)
--- NOTE | 2016-12-25 21:00 | NUR ---
ACCU CHECK PERFORMED WITH RESULT OF 192 MG/DL, 2 UNITS OF HUMALOG GIVEN, SCHEDULED MEDICATION GIVEN FROM NGT, PT TOLERATED WELL.
--- NOTE | 2016-12-25 22:00 | NUR ---
NO S/S OF DISTRESS, VSS. POSITION CHANGED FOR OFF LOAD PRESSURE.
[2016-12-26] VITALS (104 sets, daily range): BP systolic 37–244; BP diastolic 18–100
--- NOTE | 2016-12-26 | NUR ---
NO S/S OF DISTRESS, VSS, ORAL CARE PROVIDED, POSITION CHANGED FOR OFF LOAD PRESSURE.
[2016-12-26] MEDS: PROPOFOL 1000 MG/100 ML PREMIX 100 ML IV PRN ×4 (00:05→18:27)
[2016-12-26] MEDS: THERAHONEY WOUND DRESSING TP SCH ×2 (00:38→12:09)
[2016-12-26] MEDS: THERAHONEY WOUND DRESSING TP PRN (00:38)
[2016-12-26] MEDS: Z-GUARD PASTE TP SCH ×2 (00:38→12:09)
[2016-12-26] MEDS: Z-GUARD PASTE TP PRN (00:38)
[2016-12-26] MEDS: DRY DRESSING TP PRN (00:38)
--- NOTE | 2016-12-26 02:00 | NUR ---
VSS, NO CHANGED OF CONDITION AT THIS TIME, POSITION CHANGED FOR OFF LOAD PRESSURE.
--- NOTE | 2016-12-26 04:00 | NUR ---
VSS, NO S/S OF DISTRESS, AM CARE PROVIDED, ORAL CARE PROVIDED, PT TOLERATED WELL.
[2016-12-26] MEDS: PIPER/TAZO 2.25GM/D5W PREMIX 50 ML IV SCH ×3 (05:00→20:53)
[2016-12-26 05:35] LABS: ANION GAP 13.8 (8-16); CALCIUM 7.6 mg/dL (8.5-10.1); CARBON DIOXIDE 23.8 mmol/L (21-32); CREATININE 2.6 mg/dL (0.7-1.3); POTASSIUM 3.6 mmol/L (3.5-5.1)
[2016-12-26 05:39] LABS: MAGNESIUM 1.9 mg/dL (1.8-2.4); PHOSPHORUS 3.7 mg/dL (2.5-4.9)
--- NOTE | 2016-12-26 06:00 | NUR ---
PT HAD A LARGE YELLOW LOOSE STOOL, TAWANDA CARE PROVIDED, POSITION CHANGED FOR OFF LOAD PRESSURE.
[2016-12-26] MEDS: MIDODRINE 5 MG TAB PO SCH ×3 (06:39→18:28)
[2016-12-26] MEDS: BLOOD GLUCOSE MONITORING 1 DEV DEV FS SCH ×4 (06:39→21:09)
[2016-12-26] MEDS: INSULIN LISPRO SLIDING SCALE 100 UNITS/ML VIAL SUBQ PRN ×4 (06:41→21:18)
[2016-12-26] MEDS: PHENYLEPHRINE 40 MG in NACL 0.9% 250 ML IV PRN ×3 (06:42→20:10)
--- NOTE | 2016-12-26 07:04 | NUR ---
REPORT GIVEN TO SERENE RN AT BEDSIDE FOR CONTINUE OF CARE, PT IS IN STABLE CONDITION.
--- NOTE | 2016-12-26 07:15 | NUR ---
DR. MCLEOD AT BEDSIDE TO SEE PATIENT. WILL F/U WITH NEW ORDERS.
--- NOTE | 2016-12-26 07:30 | NUR ---
RECEIVED REPORT FROM LUZ GILBERT. PT IS A/O X1. NONVERBAL. UNABLE TO FOLLOW COMMANDS. BILATERAL PERRL NOTED IN EYES. NO S/SX OF PAIN NOTED. PT ETT TO VENT. FIO2 24%, AC 12, TV 500, PEEP 5. SATURATING AT 97%. SR ON MONITOR. ABLE TO MOVE BILATERAL UPPER EXTREMITIES. PARAPLEGIC. R IJ CAMERON CATHETER NOTED. INTACT AND PATENT. L IJ CAMERON CATHETER NOTED. INTACT AND PATENT INFUSING NEOSYNEPHRINE DRIP. INFUSING PROPOFOL DRIP. RASS -3. NG TUBE TO RIGHT NARES NOTED. CONTINUING TUBE FEEDING ORDERED. MINIMAL RESIDUAL NOTED. TOLERATING WELL. WOUND NOTED ON ABDOMEN. DRESSING DRY AND INTACT. WOUND NOTED ON SACRUM DRESSING DRY AND INTACT. WOUNDS NOTED ON BILATERAL LEGS. DRESSING DRY AND INTACT. WOUND NOTED ON PENIS. GAUZE IN PLACE. BILATERAL LOWER EXTREMITIES NOTED +2 PITTING EDEMA. SCROTUM APPEARS TO BE SWOLLEN. SUPRAPUBIC CATHETER NOTED. SAFETY PRECAUTION MAINTAINED. BED AT LOWEST SETTING. CALL LIGHT WITHIN REACH. WILL CONTINUE TO MONITOR FOR CHANGES.
[2016-12-26] MEDS: ASCORBIC ACID 500 MG/5 ML ORASYR GT SCH ×2 (08:39→20:55)
[2016-12-26] MEDS: LACTOBACILLUS RHAMNOSUS GG 1 EACH CAP PO SCH (08:39)
[2016-12-26] MEDS: NEOMYCIN 500 MG TAB PO SCH ×4 (08:40→20:52)
[2016-12-26] MEDS: PANTOPRAZOLE 40 MG INJ VIAL IVP SCH (08:40)
[2016-12-26] MEDS: FUROSEMIDE 100 MG/10 ML VIAL IV SCH ×2 (08:40→21:12)
[2016-12-26] MEDS: VIT-B COMP/VIT-C/FOLIC ACID 1 TAB PO SCH (08:40)
[2016-12-26] MEDS: FOAM DRESSING TP SCH (08:41)
[2016-12-26] MEDS: THERAHONEY GEL 42.5 GM TP SCH ×2 (08:41→12:09)
--- NOTE | 2016-12-26 08:49 | NUR ---
DR. ORR AT BEDSIDE TO SEE PT. WILL F/U WITH NEW ORDERS.
--- NOTE | 2016-12-26 09:00 | NUR ---
MEDICATION GIVEN ORDERED. 0 RESIDUAL NOTED FROM NG TUBE. PLACEMENT CHECKED. WILL CONTINUE TO MONITOR FOR CHANGES.
--- NOTE | 2016-12-26 09:08 | NUR ---
CHAZ HUITRON CONTACTED REGARDING DIALYSIS ORDER FOR TOMORROW. VOICE MAIL LEFT. AWAITING CALL BACK.
--- NOTE | 2016-12-26 09:47 | NUR ---
CALL BACK RECEIVED FROM CHAZ HUITRON. CONFIRMED DIALYSIS TOMORROW.
--- NOTE | 2016-12-26 10:00 | NUR ---
PT RESTING IN BED. RASS -3. CONTINUING PROPOFOL AND NEOSYNEPHRINE DRIP. TOLERATING WELL.
--- NOTE | 2016-12-26 10:22 | NUR ---
SISTER AND FAMILY AT BEDSIDE TO SEE PT.
--- NOTE | 2016-12-26 11:00 | NUR ---
LARGE DIARRHEA NOTED. NORMAL ODOR. TAWANDA CARE GIVEN. WOUND CARE GIVEN ORDERED. TOLERATED WELL.
--- NOTE | 2016-12-26 11:30 | NUR ---
DR. MCLEOD AT BEDSIDE TO SEE PT. WILL F/U WITH NEW ORDERS.
--- NOTE | 2016-12-26 12:00 | NUR ---
DR. JORDAN AT BEDSIDE TO SEE PT. WILL F/U WITH NEW ORDERS.
[2016-12-26] MEDS: DRY DRESSING TP SCH ×2 (12:09)
--- NOTE | 2016-12-26 12:09 | NUR ---
MEDICATION GIVEN ORDERED. 0 RESIDUAL NOTED. TOLERATED WELL.
--- NOTE | 2016-12-26 13:00 | NUR ---
PT RESTING IN BED. RASS -3. CONTINUING PROPOFOL AND NEOSYNEPHRINE DRIP ORDERED. TOLERATED WELL. WILL CONTINUE TO MONITOR.
--- NOTE | 2016-12-26 14:41 | NUR ---
DR. MCLEOD AT BEDSIDE TO SEE PT. REPORTED ASSESSMENT ON URINE. WILL F/U WITH NEW ORDERS.
--- NOTE | 2016-12-26 15:00 | NUR ---
DAWN CATHETER PLACED PER ORDERED. STERILE PROTOCOL USED. TOLERATED WELL. DRAINING DARK YELLOW URINE. WILL CONTINUE TO MONITOR
--- NOTE | 2016-12-26 15:30 | NUR ---
DR. REYNAGA AT BEDSIDE TO SEE PT. WILL F/U WITH NEW ORDERS.
--- NOTE | 2016-12-26 16:00 | NUR ---
LARGE AMOUNT OF DIARRHEA NOTED. TAWANDA CARE RENDERED. PT HAD ANOTHER EPISODE OF LARGE DIARRHEA SHORTLY AFTER TAWANDA CARE. MD NOTIFIED. WILL CARRY OUT NEW ORDER.
--- NOTE | 2016-12-26 16:40 | NUR ---
FAMILY AT BEDSIDE TO SEE PT. WILL F/U WITH NEW ORDERS.
--- NOTE | 2016-12-26 17:15 | NUR ---
DR. MCLEOD AT BEDSIDE TO SPEAK TO FAMILY.
--- NOTE | 2016-12-26 18:00 | NUR ---
DR. MCLEOD AT BEDSIDE TO ASSESS WOUND AND TO ASSIST IN RECTAL TUBE. TUBE PLACED ORDERED. TOLERATED WELL. DRAINING WELL. WILL CONTINUE TO MONITOR
--- NOTE | 2016-12-26 18:29 | NUR ---
MEDICATION ADMINISTERED ORDERED. 0 RESIDUAL NOTED IN NG TUBE. TOLERATED WELL.
--- NOTE | 2016-12-26 19:13 | NUR ---
RCV'D PT ON MECHANICAL VENTILATION INTUBATED WITH 7.5 ETT AT 23 AT LIP. VENT SETTINGS ARE AC 12,500,+5, 24%. ETT IS SECURED AND IN PLACE. ALARMS ARE AUDIBLE. VENT IS CONNECTED TO RED OUTLET. AMBU BAG AT BEDSIDE. PT IS ASLEEP. BS CLEAR. NO HHN TX NEEDED. VENT CHECK DONE. WILL CONTINUE TO MONITOR.
--- NOTE | 2016-12-26 19:20 | NUR ---
RECEIVED REPORT FROM SERENE ESCOBAR.
--- NOTE | 2016-12-26 20:15 | NUR ---
PT IS A/O X1. NONVERBAL. UNABLE TO FOLLOW COMMANDS. BILATERAL PERRL NOTED IN EYES. NO S/SX OF PAIN NOTED. PT ETT TO VENT. FIO2 24%, RESP 12, Tv 500, PEEP 5. SATURATING AT 98%. SR ON MONITOR. ABLE TO MOVE BILATERAL UPPER EXTREMITIES. PARAPLEGIC. R IJ CAMERON CATHETER NOTED. INTACT AND PATENT. L IJ CAMERON CATHETER NOTED. INTACT AND PATENT INFUSING NEOSYNEPHRINE DRIP. INFUSING PROPOFOL DRIP. RASS -3. NG TUBE TO RIGHT NARES NOTED. CONTINUING TUBE FEEDING ORDERED. MINIMAL RESIDUAL NOTED. TOLERATING WELL. WOUND NOTED ON ABDOMEN. DRESSING DRY AND INTACT. WOUND NOTED ON SACRUM DRESSING DRY AND INTACT. WOUNDS NOTED ON BILATERAL LEGS. DRESSING DRY AND INTACT. WOUND NOTED ON PENIS. GAUZE IN PLACE. BILATERAL LOWER EXTREMITIES NOTED +2 PITTING EDEMA. SCROTUM APPEARS TO BE SWOLLEN. SUPRAPUBIC CATHETER NOTED. SAFETY PRECAUTION MAINTAINED. BED AT LOWEST SETTING. CALL LIGHT WITHIN REACH. WILL CONTINUE TO MONITOR FOR CHANGES.
[2016-12-26] MEDS: SIMVASTATIN 20 MG TAB PO SCH (20:52)
[2016-12-26] MEDS: LACTULOSE 20 GM/30 ML UDC PO SCH (20:53)
[2016-12-26] MEDS: LATANOPROST 0.005% OP 2.5 ML BTL OP SCH (21:09)
--- NOTE | 2016-12-26 21:30 | NUR ---
PATIENT GIVEN ALL MEDICATIONS, NADR AT THIS TIME. PATIENT TOLERATED WELL
--- NOTE | 2016-12-26 22:45 | NUR ---
PATIENT RESTING NO SIGNS OF DISTRESS
--- NOTE | 2016-12-26 23:45 | NUR ---
PATIENTS BLOOD PRESSURE CONTINUED TO DROP, INCREASED NEOSYNEPHRINE TO 35
[2016-12-27] VITALS (106 sets, daily range): BP systolic 71–175; BP diastolic 21–127
[2016-12-27] MEDS: PROPOFOL 1000 MG/100 ML PREMIX 100 ML IV PRN ×3 (00:15→19:29)
--- NOTE | 2016-12-27 00:30 | NUR ---
NEW BAG OF PROPOFOL WAS HUNG, PATIENT TOLERATED WELL. VAP PROTOCOL PERFORMED
[2016-12-27] MEDS: Z-GUARD PASTE TP SCH ×2 (01:55→12:01)
[2016-12-27] MEDS: THERAHONEY WOUND DRESSING TP SCH ×2 (01:55→12:01)
--- NOTE | 2016-12-27 02:15 | NUR ---
PATIENT WAS TURNED, TOLERATED WELL, NO SIGNS OF DISTRESS. WILL CONTINUE TO MONITOR PATIENT
[2016-12-27] MEDS: PHENYLEPHRINE 40 MG in NACL 0.9% 250 ML IV PRN ×3 (02:36→17:29)
--- NOTE | 2016-12-27 02:45 | NUR ---
NEW BAG OF NEOSYNEPHRINE WAS HUNG, PATIENT TOLERATED WELL.
--- NOTE | 2016-12-27 03:30 | NUR ---
PATIENT IN BED SLEEPING NO SIGNS OF DISTRESS.
[2016-12-27] MEDS: PIPER/TAZO 2.25GM/D5W PREMIX 50 ML IV SCH ×3 (04:04→20:57)
--- NOTE | 2016-12-27 04:15 | NUR ---
PATIENT WAS CHANGED, CLEANED AND GIVEN A BATH
--- NOTE | 2016-12-27 05:00 | NUR ---
PATIENT WAS GIVEN ZOSYN, NADR AT THIS TIME. PATIENT TOLERATED WELL
[2016-12-27 05:34] LABS: MEAN CORPUSCULAR HEMOGLOBIN 28 pg (27-31); MEAN CORPUSCULAR VOLUME 84 fL (80-94)
[2016-12-27 05:44] LABS: MAGNESIUM 1.9 mg/dL (1.8-2.4); PHOSPHORUS 4.7 mg/dL (2.5-4.9)
[2016-12-27 05:45] LABS: ANION GAP 13.5 (8-16); CALCIUM 7.8 mg/dL (8.5-10.1); CARBON DIOXIDE 23.1 mmol/L (21-32); CREATININE 2.5 mg/dL (0.7-1.3); POTASSIUM 3.6 mmol/L (3.5-5.1)
[2016-12-27 05:59] LABS: HEMATOCRIT 23.5 % (36-52); HEMOGLOBIN 7.8 g/dL (12.0-18.0); WHITE BLOOD COUNT (AUTO) 9.5 K/uL (4.8-10.8)
[2016-12-27 06:00] LABS: MEAN CORPUSCULAR HGB CONC 33 g/dL (33-37); RED CELL DISTRIBUTION WIDTH 16.8 % (11.6-13.7)
[2016-12-27 06:04] LABS: PLATELET COUNT (AUTO) 30 K/uL (140-450)
[2016-12-27 06:20] LABS: BAND % (MANUAL) 0 % (0-8); BASOPHILS % (MANUAL) 0 % (0-2); EOSINOPHILS % (MANUAL) 3 % (0-4); LYMPHOCYTES % (MANUAL) 8 % (20-46); MONOCYTES % (MANUAL) 3 % (5-12); NEUTROPHILS % (MANUAL) 86 (43-65); PLATELET ESTIMATE DECREASED
--- NOTE | 2016-12-27 06:45 | NUR ---
REC'D PT ON CARESCAPE VENT SETTING AC12 VT 500 PEEP 5 FIO2 24% ALARMS ON AND FUNCTIONING PROPERLY, AMBU BAG AT SIDE OF VENT AND VENTILATOR IS PLUGGED INTO RED OUTLET, B\S ARE RHONCHI BILATERALLY, SXN PT MODERATE AMT OF THIN YELLOW SECRETIONS, PT IS ORALLY INTUBATED WITH 7.5 ET TUBE SECURED WITH ANCHOR FAST AT 23CM MIDLINE AND SKIN INTEGRITY IS INTACT, NO HHN REQUIRED AT THIS TIME, PT IS RESTING WITH NO SIGNS OF DISTRESS NOTED
[2016-12-27] MEDS: MIDODRINE 5 MG TAB PO SCH ×3 (07:11→18:11)
--- NOTE | 2016-12-27 07:30 | NUR ---
RECEIVED REPORT FROM LUZ WATKINS. PT IS A/O X1. NONVERBAL. UNABLE TO FOLLOW COMMANDS. BILATERAL PERRL NOTED IN EYES. NO S/SX OF PAIN NOTED. PT ETT TO VENT. FIO2 24%, AC 12, TV 500, PEEP 5. SATURATING AT 97%. SR ON MONITOR. ABLE TO MOVE BILATERAL UPPER EXTREMITIES. PARAPLEGIC. R IJ CAMERON CATHETER NOTED. INTACT AND PATENT. L IJ CAMERON CATHETER NOTED. INTACT AND PATENT INFUSING NEOSYNEPHRINE DRIP. INFUSING PROPOFOL DRIP. RASS -3. NG TUBE TO RIGHT NARES NOTED. CONTINUING TUBE FEEDING ORDERED. MINIMAL RESIDUAL NOTED. TOLERATING WELL. WOUND NOTED ON ABDOMEN. DRESSING DRY AND INTACT. WOUND NOTED ON SACRUM DRESSING DRY AND INTACT. WOUNDS NOTED ON BILATERAL LEGS. DRESSING DRY AND INTACT. WOUND NOTED ON PENIS. GAUZE IN PLACE. BILATERAL LOWER EXTREMITIES NOTED +2 PITTING EDEMA. SCROTUM APPEARS TO BE SWOLLEN. SUPRAPUBIC CATHETER NOTED. DAWN CATHETER IN PLACE. DRAINING DARK YELLOW URINE. RECTAL TUBE IN PLACE. DRAINING WATERY DIARRHEA. SAFETY PRECAUTION MAINTAINED. BED AT LOWEST SETTING. CALL LIGHT WITHIN REACH. WILL CONTINUE TO MONITOR FOR CHANGES.
[2016-12-27] MEDS: BLOOD GLUCOSE MONITORING 1 DEV DEV FS SCH ×4 (07:31→21:11)
--- NOTE | 2016-12-27 07:45 | NUR ---
DR. JAMESON AND RESIDENT AT BEDSIDE TO SEE PT. WILL F/U WITH NEW ORDERS.
--- NOTE | 2016-12-27 07:55 | NUR ---
DR. MCLEOD AT BEDSIDE TO SEE PT. WILL F/U WITH NEW ORDERS.
--- NOTE | 2016-12-27 08:38 | NUR ---
VENT CHECK, NO SXN REQUIRED AT THIS TIME, AIRWAY IS PATENT, B\S ARE RHONCHI BILATERALLY
[2016-12-27] MEDS: LACTOBACILLUS RHAMNOSUS GG 1 EACH CAP PO SCH (08:42)
[2016-12-27] MEDS: VIT-B COMP/VIT-C/FOLIC ACID 1 TAB PO SCH (08:43)
[2016-12-27] MEDS: FUROSEMIDE 100 MG/10 ML VIAL IV SCH (08:43)
[2016-12-27] MEDS: PANTOPRAZOLE 40 MG INJ VIAL IVP SCH (08:43)
[2016-12-27] MEDS: NEOMYCIN 500 MG TAB PO SCH ×4 (08:43→20:58)
[2016-12-27] MEDS: THERAHONEY GEL 42.5 GM TP SCH ×2 (08:44→12:01)
[2016-12-27] MEDS: ASCORBIC ACID 500 MG/5 ML ORASYR GT SCH ×2 (08:44→20:58)
--- NOTE | 2016-12-27 08:46 | NUR ---
MINIMAL RESIDUAL NOTED IN NG TUBE. MEDICATION GIVEN ORDERED. TOLERATED WELL.
--- NOTE | 2016-12-27 08:55 | NUR ---
CENTRAL LINE DRESSING CHANGED D/T SOILAGE. STERILE PROTOCOL MAINTAINED. TOLERATED WELL. WILL CONTINUE TO MONITOR.
--- NOTE | 2016-12-27 09:00 | NUR ---
DR. ORR AT BEDSIDE TO SEE PT. WILL F/U WITH NEW ORDERS.
--- NOTE | 2016-12-27 09:15 | NUR ---
NEPHROLOGY IS MAKING ROUND,REVIEWED LAB REPORTS. ORDERS RECEIVED TO CANCEL THE DIALYSIS FOR TODAY AND START PATIENT ON LASIX DRIP. DIALYSIS NURSE CHAZ HUITRON WAS NOTIFIED OF THE CANCELLATION.
--- NOTE | 2016-12-27 09:23 | NUR ---
DR. MCLEOD AT BEDSIDE TO SEE PT. WILL F/U WITH NEW ORDERS.
--- NOTE | 2016-12-27 10:49 | NUR ---
DR. JORDAN AT BEDSIDE TO SEE PT. WILL F/U WITH NEW ORDERS.
[2016-12-27] MEDS: FUROSEMIDE 100 MG in DEXTROSE 5% 100 ML IV SCH (10:53)
--- NOTE | 2016-12-27 11:00 | NUR ---
NG FOUND DISLODGED FROM PT. NEW NG TUBE TO RIGHT NARES PLACED. PLACEMENT CHECKED. PT TOLERATED WELL. WILL CONTINUE TO MONITOR.
--- NOTE | 2016-12-27 11:19 | NUR ---
VENT CHECK, SXN PT SMALL AMT OF YELLOW SECRETIONS, B\S ARE RHONCHI AND PT IS RESTING
--- NOTE | 2016-12-27 11:31 | NUR ---
DR. MCLEOD AT BEDSIDE TO SEE PT. WILL F/U WITH NEW ORDERS.
[2016-12-27] MEDS: INSULIN LISPRO SLIDING SCALE 100 UNITS/ML VIAL SUBQ PRN ×2 (12:00→16:23)
[2016-12-27] MEDS: DRY DRESSING TP SCH ×2 (12:01)
--- NOTE | 2016-12-27 12:04 | NUR ---
MINIMAL RESIDUAL NOTED IN NG TUBE. MEDICATION GIVEN ORDERED. TOLERATED WELL.
--- NOTE | 2016-12-27 13:00 | NUR ---
WOUND CARE DONE ORDERED. PT TOLERATED WELL. WOUND APPEARANCE ABOUT THE SAME. RECTAL TUBE DRAINING WELL. DAWN CATHETER DRAINING WELL.
--- NOTE | 2016-12-27 13:16 | NUR ---
VENT CHECK, NO SXN REQUIRED AT THIS TIME AIRWAY IS PATENT AND PT IS SLEEPING WITH NO SIGNS OF DISTRESS NOTED
--- NOTE | 2016-12-27 13:30 | NUR ---
FAMILY AT BEDSIDE TO SEE PT. WILL F/U WITH NEW ORDERS.
--- NOTE | 2016-12-27 14:00 | NUR ---
PT RESTING IN BED. RASS -3. NO S/SX OF ACUTE DISTRESS NOTED. PT IS STABLE.
[2016-12-27] MEDS ORDERED: HYDROcodone/APAP 7.5/325 MG 1 TAB PO PRN (15:05)
[2016-12-27] MEDS ORDERED: MORPHINE SULFATE 2 MG/ML SYR IVP PRN (15:05)
--- NOTE | 2016-12-27 15:10 | NUR ---
VENT CHECK, NO SXN REQUIRED AIRWAY IS PATENT AND PT IS RESTING
--- NOTE | 2016-12-27 16:03 | NUR ---
12/27/16 RD FOLLOW UP COMPLETED PLEASE REFER TO NUTRITION PROGRESS NOTE UNDER CARE ACTIVITY FOR ESTIMATED NUTRITION NEEDS. RD RECOMMENDATIONS: 1.RECOMMEND INCREASING FIBERSOURCE HN TO 50 ML/HR TO HELP PT MEET ADEQUATE NUTRITION NEEDS (CONTINUE ON WITH PROSOURCE TID). -NOTE PT WITH INCREASED NUTRIENT NEEDS SINCE PT HAS MULTIPLE WOUNDS, IS ON TRACH TO VENT, AND ON HD. -AT GOAL RATE OF 50 ML/HR, TUBE FEEDING WITH PROSOURCE PROVIDES 1200 ML OF TOTAL VOLUME, 1560 KCAL, 98 GM OF PROTEIN, AND 2073 ML OF FREE WATER (ADEQUATE TO MEET ~83% OF PT ESTIMATED KCAL NEEDS AND 100% OF PT ESTIMATED PROTEIN NEEDS.) 2. RD WILL F/U 2-3 DAYS; HIGH RISK [place]НДРЕЙ [place], RD
--- NOTE | 2016-12-27 16:34 | NUR ---
60 ML RESIDUAL NOTED. HOLD TUBE FEEDING PER ORDERED. MEDICATION ADMINISTERED ORDERED. WILL CONTINUE TO MONITOR.
--- NOTE | 2016-12-27 16:49 | NUR ---
VENT CHECK, NO SXN REQUIRED AT THIS TIME, PT IS RESTING WITH NO SIGNS OF DISTRESS NOTED
--- NOTE | 2016-12-27 17:00 | NUR ---
PT RESTING IN BED. RASS -3. NO S/SX OF ACUTE DISTRESS NOTED.
--- NOTE | 2016-12-27 17:56 | NUR ---
20 CC RESIDUAL NOTED. RESUME TUBE FEEDING ORDERED.
--- NOTE | 2016-12-27 18:11 | NUR ---
MEDICATION ADMINISTERED ORDERED. 20 CC RESIDUAL NOTED. TOLERATED WELL. WILL CONTINUE TO MONITOR FOR CHANGES.
--- NOTE | 2016-12-27 19:19 | NUR ---
PT ENDORSED TO LUZ QUCIK. PT IS STABLE.
--- NOTE | 2016-12-27 19:38 | NUR ---
RECEIVED REPORT FROM SERENE ESCOBAR. PATIENT IS SEDATED AND RESTING COMFORTABLY IN BED. PATIENT IS ETT TO VENT WITH SETTINGS OF FIO2 24%, TIDAL VOLUME 500, A/C 12, AND PEEP OF 5. NO SIGNS OF RESPIRATORY DISTRESS OR SHORTNESS OF BREATH NOTED. BREATH SOUNDS ARE CLEAR UPON COARSE. SR ON SHIP CLEANER. PATIENT'S VITALS ARE STABLE AND PATIENT IS AFEBRILE. PATIENT'S ABDOMEN IS LARGE, ROUND, AND DISTENDED. BOWEL SOUNDS ARE PRESENT. THERE IS A NGT IN THE RIGHT NARES WITH PATIENT RECEIVING FIBERSOURCE AT 50ML/HR. RESIDUAL OF 50 ML NOTED. HELD TUBE FEEDING AT THIS TIME RELATED TO DOCTOR'S ORDERS. WILL REASSESS IN 1 HOUR. THERE IS A SUPRAPUBIC CATHETER IN PLACE WITH SCANT AMOUNT OF YELLOW URINE NOTED IN THE BAG. THERE IS ALSO A DAWN CATHETER IN PLACE WITH MODERATE AMOUNT OF CLEAR YELLOW URINE NOTED. THERE IS A RECTAL BAG IN PLACE WITH YELLOWISH BROWN LIQUID STOOL OF MODERATE AMOUNT NOTED. PATIENT HAS A WOUNDS TO THE BILATERAL LOWER EXTREMITIES, SACRAL AREA, AND RIGHT BUTTOCK. WOUNDS COVERED WITH DRESSINGS THAT ARE DRY AND INTACT. THERE IS A CAMERON CATHETER IN THE RIGHT IJ FOR HEMODIALYSIS. THERE IS ALSO A CAMERON CATHETER IN THE LIJ RECEIVING NEOSYNEPHRINE AT 35 ML/HR AND PROPOFOL AT 13.92 ML/HR. INITIAL ASSESSMENT COMPLETED. VAP ORAL CARE RENDERED. HOB AT 30 DEGREES WITH BED IN LOW POSITION. WILL CONTINUE TO MONITOR PATIENT. Addendum: 12/27/16 at 2118 by Karla Ware RN PATIENT IS ALSO RECEIVING A LASIX DRIP AT 3ML/HR.
--- NOTE | 2016-12-27 20:10 | NUR ---
DR. REYNAGA PRESENT ON UNIT. PROVIDED MD WITH PATIENT'S STATUS. NO NEW ORDERS GIVEN AT THIS TIME. CONTINUE TO MONITOR PATIENT.
--- NOTE | 2016-12-27 20:56 | NUR ---
RECHECKED TUBE FEEDING RESIDUAL. RESIDUAL OF 20 ML NOTED. RESUMED TUBE FEEDING. WILL CONTINUE TO MONITOR.
[2016-12-27] MEDS: SIMVASTATIN 20 MG TAB PO SCH (20:58)
[2016-12-27] MEDS: LACTULOSE 20 GM/30 ML UDC PO SCH (20:58)
[2016-12-27] MEDS: LATANOPROST 0.005% OP 2.5 ML BTL OP SCH (20:58)
--- NOTE | 2016-12-27 21:12 | NUR ---
TOLERATED DUE MEDICATIONS. NO SIGNS OF SOB OR RESPIRATORY DISTRESS NOTED. REPOSITIONED PATIENT FOR COMFORT. HOB AT 30 DEGREES WITH BED IN LOW POSITION. CONTINUE TO MONITOR PATIENT.
--- NOTE | 2016-12-27 23:00 | NUR ---
NO SIGNS OF RESPIRATORY DISTRESS OR SOB NOTED. CONTINUE TO MONITOR PATIENT.
--- NOTE | 2016-12-27 23:45 | NUR ---
PATIENT REPOSITIONED FOR COMFORT. VAP ORAL CARE RENDERED. NO SIGNS OF RESPIRATORY DISTRESS NOTED. HOB AT 30 DEGREES WITH BED IN LOW POSITION. WILL CONTINUE TO MONITOR PATIENT.
[2016-12-28] VITALS (105 sets, daily range): BP systolic 70–162; BP diastolic 16–105
[2016-12-28] MEDS: PHENYLEPHRINE 40 MG in NACL 0.9% 250 ML IV PRN ×3 (00:22→17:52)
[2016-12-28] MEDS: PROPOFOL 1000 MG/100 ML PREMIX 100 ML IV PRN ×2 (00:25→07:46)
[2016-12-28] MEDS: THERAHONEY WOUND DRESSING TP SCH ×2 (00:25→12:24)
[2016-12-28] MEDS: Z-GUARD PASTE TP SCH ×2 (00:25→12:24)
--- NOTE | 2016-12-28 02:45 | NUR ---
MORNING CARE RENDERED. BED BATH PROVIDED. CHANGED BED LINENS AND GOWN. REPOSITIONED PATIENT FOR COMFORT. VAP ORAL CARE RENDERED. NO SIGNS OF DISTRESS OR SOB NOTED. CVP DRESSING CHANGE ON LEFT IJ CAMERON CATHETER. HOB AT 30 DEGREES WITH BED IN LOW POSITION. WILL CONTINUE TO MONITOR PATIENT.
--- NOTE | 2016-12-28 04:25 | NUR ---
SUPERVISOR ALUMINUM FABRICATION SHAYAN AT BEDSIDE FOR SCHEDULED LAB DRAWS.
[2016-12-28] MEDS: PIPER/TAZO 2.25GM/D5W PREMIX 50 ML IV SCH ×3 (04:51→20:50)
[2016-12-28 04:55] LABS: BASOPHILS # (AUTO) 0.1 K/uL (0.00-0.22); BASOPHILS % (AUTO) 0.8 % (0.0-2.0); EOSINOPHILS # (AUTO) 0.5 K/uL (0-0.4); EOSINOPHILS % (AUTO) 5.1 % (0.0-4.0); HEMATOCRIT 23.3 % (36-52); LYMPHOCYTES # (AUTO) 0.6 K/uL (2.0-11.5); LYMPHOCYTES % (AUTO) 6.1 % (20.5-51.1); MEAN CORPUSCULAR HEMOGLOBIN 28 pg (27-31); MEAN CORPUSCULAR HGB CONC 33 g/dL (33-37); MEAN CORPUSCULAR VOLUME 85 fL (80-94); MONOCYTES # (AUTO) 0.6 K/uL (0.8-1.0); MONOCYTES % (AUTO) 6.4 % (1.7-9.3); NEUTROPHILS % (AUTO) 81.6 % (42.2-75.2); RED BLOOD CELL COUNT(AUTO) 2.76 MIL/uL (4.20-6.10)
--- NOTE | 2016-12-28 05:30 | NUR ---
RESIDENT DR. MCLEOD ON UNIT. PROVIDED DOCTOR WITH PATIENT'S STATUS. NO NEW ORDERS AT THIS TIME. CONTINUE TO MONITOR PATIENT.
[2016-12-28 06:11] LABS: ANION GAP 12.8 (8-16); CALCIUM 7.9 mg/dL (8.5-10.1); CREATININE 2.6 mg/dL (0.7-1.3); POTASSIUM 3.8 mmol/L (3.5-5.1)
[2016-12-28 06:23] LABS: MAGNESIUM 1.9 mg/dL (1.8-2.4); PHOSPHORUS 5.6 mg/dL (2.5-4.9)
--- NOTE | 2016-12-28 06:30 | NUR ---
DR. MELI SAM PRESENT ON UNIT. UPDATED DOCTOR ON PATIENT'S STATUS. NO NEW ORDERS GIVEN AT THIS TIME.
--- NOTE | 2016-12-28 06:37 | NUR ---
REC'D PT ON CARESCAPE VENT SETTINGS AC12 VT 500 PEEP 5 FIO2 24% ALARMS ON AND FUNCTIONING PROPERLY, AMBU BAG AT SIDE OF VENTILATOR AND VENTILATOR IS PLUGGED INTO RED OUTLET, SXN PT SMALL AMT OF CREAM THIN SECRETIONS, B\S ARE RHONCHI BILATERALLY, PT IS ORALLY INTUBATED WITH 7.5 ET TUBE SECURED WITH ANCHOR FAST AT 23CM AT MIDLINE WITH SKIN INTEGRITY INTACT PT IS RESTING WITH NO SIGN OF DISTRESS NOTED PT HAS SOFT MITTENS ON BOTH HANDS
[2016-12-28 06:39] LABS: HEMOGLOBIN 7.7 g/dL (12.0-18.0); PLATELET COUNT (AUTO) 30 K/uL (140-450)
[2016-12-28 06:40] LABS: WHITE BLOOD COUNT (AUTO) 9.8 K/uL (4.8-10.8)
[2016-12-28] MEDS: MIDODRINE 5 MG TAB PO SCH (07:03)
--- NOTE | 2016-12-28 07:05 | NUR ---
PER CHARGE NURSE DAVID ESCOBAR, DR. MELI SAM CALLED AND ASKED TUBE FEEDING TO BE HELD. TUBE FEEDING TURNED OFF AT THIS TIME PER DOCTOR'S ORDERS.
[2016-12-28] MEDS: BLOOD GLUCOSE MONITORING 1 DEV DEV FS SCH ×4 (07:08→20:34)
--- NOTE | 2016-12-28 07:10 | NUR ---
RECEIVED REPORT FROM LUZ QUICK. PT IS A/O X1. NONVERBAL. UNABLE TO FOLLOW COMMANDS. BILATERAL PERRL NOTED IN EYES. NO S/SX OF PAIN NOTED. PT ETT TO VENT. FIO2 24%, AC 12, TV 500, PEEP 5. SATURATING AT 97%. SR ON MONITOR. ABLE TO MOVE BILATERAL UPPER EXTREMITIES. PARAPLEGIC. R IJ CAMERON CATHETER NOTED. INTACT AND PATENT. L IJ CAMERON CATHETER NOTED. INTACT AND PATENT INFUSING NEOSYNEPHRINE DRIP. INFUSING PROPOFOL DRIP. RASS -3. NG TUBE TO RIGHT NARES NOTED. CONTINUE TUBE FEEDING ORDERED. MINIMAL RESIDUAL NOTED. TOLERATING WELL. WOUND NOTED ON ABDOMEN. DRESSING DRY AND INTACT. WOUND NOTED ON SACRUM DRESSING DRY AND INTACT. WOUNDS NOTED ON BILATERAL LEGS. DRESSING DRY AND INTACT. WOUND NOTED ON PENIS. GAUZE IN PLACE. BILATERAL LOWER EXTREMITIES NOTED +2 PITTING EDEMA. SCROTUM APPEARS TO BE SWOLLEN. SUPRAPUBIC CATHETER NOTED. DAWN CATHETER IN PLACE. DRAINING DARK YELLOW URINE. RECTAL TUBE IN PLACE. DRAINING WATERY DIARRHEA. SAFETY PRECAUTION MAINTAINED. BED AT LOWEST SETTING. CALL LIGHT WITHIN REACH. WILL CONTINUE TO MONITOR FOR CHANGES.
[2016-12-28] MEDS: INSULIN LISPRO SLIDING SCALE 100 UNITS/ML VIAL SUBQ PRN ×3 (07:12→16:59)
--- NOTE | 2016-12-28 07:15 | NUR ---
TF STOPPED PER MD ORDERS. WILL CONTINUE TO MONITOR
--- NOTE | 2016-12-28 07:26 | NUR ---
NO CHANGES IN PATIENT'S CONDITION. ALL PATIENT'S NEEDS ATTENDED TO DURING SHIFT. ENDORSED CONTINUITY OF CARE TO TUNG RN.
--- NOTE | 2016-12-28 07:48 | NUR ---
DR. BOSE AND RESIDENT AT BEDSIDE TO SEE PT. WILL F/U WITH NEW ORDERS.
[2016-12-28] MEDS ORDERED: ACETAMINOPHEN 650 MG/20.3 ML UDC GT PRN (07:57)
[2016-12-28] MEDS ORDERED: HYDROcodone/APAP 7.5/325 MG 1 TAB GT PRN (07:57)
[2016-12-28] MEDS ORDERED: LACTULOSE 20 GM/30 ML UDC GT SCH (07:58)
[2016-12-28] MEDS ORDERED: SENNA 8.6 MG TAB GT PRN (08:00)
[2016-12-28] MEDS ORDERED: SIMVASTATIN 20 MG TAB GT SCH (08:01)
[2016-12-28] MEDS: LACTOBACILLUS RHAMNOSUS GG 1 EACH CAP GT SCH (08:09)
[2016-12-28] MEDS: ASCORBIC ACID 500 MG/5 ML ORASYR GT SCH ×2 (08:09→20:25)
[2016-12-28] MEDS: PANTOPRAZOLE 40 MG INJ VIAL IVP SCH (08:10)
[2016-12-28] MEDS: NEOMYCIN 500 MG TAB GT SCH ×4 (08:10→20:28)
[2016-12-28] MEDS: THERAHONEY GEL 42.5 GM TP SCH ×2 (08:10→12:24)
[2016-12-28] MEDS: VIT-B COMP/VIT-C/FOLIC ACID 1 TAB GT SCH (08:10)
--- NOTE | 2016-12-28 08:10 | NUR ---
0 RESIDUAL NOTED IN NG TUBE. PLACEMENT CHECKED. MEDICATION ADMINISTERED ORDERED. TOLERATED WELL. WILL CONTINUE TO MONITOR.
[2016-12-28] MEDS ORDERED: DEXT 5% /NACL 0.9% 1,000 ML IV SCH (08:40)
--- NOTE | 2016-12-28 09:05 | NUR ---
VENT CHECK, NO SXN REQUIRED AT THIS TIME AIRWAY IS PATENT AND PT IS RESTING
--- NOTE | 2016-12-28 09:40 | NUR ---
DR. MCLEOD AT BEDSIDE TO SEE PT. WILL F/U WITH NEW ORDERS.
--- NOTE | 2016-12-28 10:47 | NUR ---
VENT CHECK, SXN PT SMALL AMT OF CREAM COLOR SECRETIONS, PT IS RESTING
[2016-12-28] MEDS: MORPHINE SULFATE 50 MG in NACL 0.9% 45 ML IV PRN ×2 (11:13→18:40)
--- NOTE | 2016-12-28 11:13 | NUR ---
STARTED PT ON ATIVAN AND MORPHINE DRIP PER ORDERED. D/C PROPOFOL. WILL CONTINUE TO MONITOR.
[2016-12-28] MEDS: LORazepam 50 MG in NACL 0.9% 25 ML IV PRN ×2 (11:14→18:38)
--- NOTE | 2016-12-28 11:20 | NUR ---
FAMILY AT BEDSIDE TO SEE PT
--- NOTE | 2016-12-28 11:39 | NUR ---
DR. SAM AT BEDSIDE TO SPEAK WITH FAMILY.
--- NOTE | 2016-12-28 12:00 | NUR ---
INCREASE ATIVAN AND MORPHINE PER ORDERED D/T CONSISTENT AGITATION, RAISING ARMS AND MOVING AROUND
[2016-12-28] MEDS: MIDODRINE 5 MG TAB GT SCH ×2 (12:23→18:22)
[2016-12-28] MEDS: DRY DRESSING TP SCH ×2 (12:24)
--- NOTE | 2016-12-28 12:26 | NUR ---
0 RESIDUAL NOTED IN NG TUBE. PLACEMENT CHECKED. MEDICATION ADMINISTERED ORDERED. TOLERATED WELL. WILL CONTINUE TO MONITOR.
--- NOTE | 2016-12-28 12:30 | NUR ---
INCREASE ATIVAN AND MORPHINE PER ORDERED D/T CONSISTENT AGITATION, RAISING ARMS AND MOVING AROUND
--- NOTE | 2016-12-28 12:35 | NUR ---
DR. RICARDO AT BEDSIDE TO SEE PT. WILL F/U WITH NEW ORDERS.
[2016-12-28] MEDS ORDERED: MIDAZOLAM 2 MG/2 ML VIAL IV SCH (12:38)
--- NOTE | 2016-12-28 12:55 | NUR ---
DR. ORR AT BEDSIDE TO SEE PT. WILL F/U WITH NEW ORDERS.
--- NOTE | 2016-12-28 13:00 | NUR ---
INCREASE ATIVAN AND MORPHINE PER ORDERED D/T CONSISTENT AGITATION, RAISING ARMS AND MOVING AROUND.
--- NOTE | 2016-12-28 13:43 | NUR ---
VENT CHECK, NO SXN REQUIRED AIRWAY IS PATENT B\S ARE RHONCHI AND PT IS RESTING
--- NOTE | 2016-12-28 14:00 | NUR ---
INCREASE ATIVAN AND MORPHINE PER ORDERED D/T CONSISTENT AGITATION, RAISING ARMS AND MOVING AROUND.
--- NOTE | 2016-12-28 14:02 | NUR ---
DR. PADILLA AT BEDSIDE TO SEE PT. WILL F/U WITH NEW ORDERS.
--- NOTE | 2016-12-28 14:15 | NUR ---
DR. MCLEOD AND DR. SAM AT BEDSIDE TO SEE PT. WILL F/U WITH NEW ORDERS.
--- NOTE | 2016-12-28 15:00 | NUR ---
INCREASE ATIVAN AND MORPHINE PER ORDERED D/T CONSISTENT AGITATION, RAISING ARMS AND MOVING AROUND. Addendum: 12/28/16 at 1508 by Stevie Zamudio RN INCREASE ONLY MORPHINE, NOT ATIVAN.
--- NOTE | 2016-12-28 15:21 | NUR ---
VENT CHECK, SXN PT SMALL AMT OF CREAM COLOR SECRETIONS, PT IS RESTING WITH NO SIGNS OF DISTRESS NOTED AT THIS TIME
--- NOTE | 2016-12-28 16:00 | NUR ---
PT RESTING IN BED. RASS -3. NO S/SX OF ACUTE DISTRESS NOTED. WILL CONTINUE TO MONITOR.
[2016-12-28] MEDS: ALBUMIN HUMAN 25% 100 ML IV SCH (16:47)
--- NOTE | 2016-12-28 17:00 | NUR ---
20 RESIDUAL NOTED IN NG TUBE. PLACEMENT CHECKED. MEDICATION ADMINISTERED ORDERED. TOLERATED WELL. WILL CONTINUE TO MONITOR.
--- NOTE | 2016-12-28 17:09 | NUR ---
VENT CHECK, NO SXN REQUIRED AT THIS TIME, PT IS RESTING WITH NO SIGNS OF DISTRESS NOTED AT THIS TIME
[2016-12-28] MEDS: FUROSEMIDE 100 MG in DEXTROSE 5% 100 ML IV SCH (17:13)
--- NOTE | 2016-12-28 17:30 | NUR ---
PT RESTING IN BED. RASS -3. NO S/SX OF ACUTE DISTRESS NOTED. WILL CONTINUE TO MONITOR.
--- NOTE | 2016-12-28 18:23 | NUR ---
0 RESIDUAL NOTED IN NG TUBE. MEDICATION ADMINISTERED ORDERED. TOLERATED WELL. WILL CONTINUE TO MONITOR FOR CHANGES.
--- NOTE | 2016-12-28 19:24 | NUR ---
ENDORSED PT TO LUZ GILBERT. PT IS STABLE.
--- NOTE | 2016-12-28 19:25 | NUR ---
RECEIVED REPORT FORM LUZ CAST AT BEDSIDE, PT IS SEDATED, UNABLE TO FOLLOW COMMANDS AND MAKE NEEDS KNOWN, FLACC 0, VSS. ON ETT TO VENT WITH SETTING FIO2 24, AC 12, TV 500, PEEP 5, NO SOB/DISTRESS, BREATHING EVEN AND UNLABORED, CLEAR LUNG SOUNDS, O2 SAT AT 100%, SR ON SALES PROMOTION OFFICER, NG TUBE TO RIGHT NARES WITH POSITIVE PLACEMENT OF AUSCULTATION, RUNNING FIBERSOURCE AT 50 ML/HR, WITH 60 ML RESIDUAL NOTED, LARGE SOFT ABDOMEN WITH ACTIVE BOWEL SOUNDS, SUPRAPUBIC CATHETER IN PLACE WITH CLOUDY BROWN URINE NOTED, DAWN CATHETER IN PLACE WITH CLEAR YELLOW URINE NOTED, RECTAL BAG IN PLACE WITH GREENISH LIQUID STOOL, SKIN IS PALE IN COLOR, WARM AND DRY IN TOUCH, MULTIPLE OPEN WOUND NOTED (SEE WOUND ASSESSMENT), CAMERON CATHETER TO RIGHT IJ FOR HD, CAMERON CATHETER TO LEFT IJ, DOUBLE LUMEN, PATENT TO EACH LUMEN, RUNNING MORPHINE DRIP AT 7 MG, JESSICA-SYNEPHRINE DRIP AT 40 MCG, ATIVAN DRIP AT 6MG, AND LASIX DRIP AT 5ML/HR, SEVERE WEAKNESS TO ALL EXTREMITIES, HEAD ELEVATED 30 DEGREES, SAFETY MEASURES MAINTAINED, WILL CONTINUE TO MONITOR. Addendum: 12/28/16 at 2038 by Madyson Hanson RN HOLD NGT AT THIS TIME DUE TO HIGH RESIDUAL AT THIS TIME, WILL RECHECK 1 HOUR LATER.
--- NOTE | 2016-12-28 20:10 | NUR ---
ORAL CARE PROVIDED, POSITION CHANGED FOR OFF LOAD PRESSURE, NO CHANGE OF CONDITION AT THIS TIME, VSS.
[2016-12-28] MEDS: LATANOPROST 0.005% OP 2.5 ML BTL OP SCH (20:24)
--- NOTE | 2016-12-28 20:30 | NUR ---
RECHECKED RESIDUAL WITH 60 ML, CONTINUE TO HOLD NGT FEEDING.
--- NOTE | 2016-12-28 21:30 | NUR ---
DR. JORDAN CAME TO CHECK PATIENT AT BEDSIDE, NO NEW ORDER AT THIS TIME.
--- NOTE | 2016-12-28 22:00 | NUR ---
VSS. NO S/S OF DISTRESS, POSITION CHANGED FOR OFF LOAD PRESSURE.
[2016-12-29] VITALS (78 sets, daily range): BP systolic 65–135; BP diastolic 36–66
--- NOTE | 2016-12-29 | NUR ---
VSS. NO S/S OF DISTRESS, CONTINUE TO HOLD NGT FEEDING DUE TO NPO AFTER MIDNIGHT ORDER, ORAL CARE PROVIDED, POSITION CHANGED FOR OFF LOAD PRESSURE, DR. DELGADO CAME TO SEE PATIENT AT BEDSIDE.
[2016-12-29] MEDS: Z-GUARD PASTE TP SCH (00:35)
[2016-12-29] MEDS: ALBUMIN HUMAN 25% 100 ML IV SCH ×2 (00:35→09:42)
[2016-12-29] MEDS: THERAHONEY WOUND DRESSING TP SCH (00:35)
--- NOTE | 2016-12-29 02:00 | NUR ---
NO CHANGE OF CONDITION AT THIS TIME, VSS. POSITION CHANGED FOR OFF LOAD PRESSURE.
[2016-12-29] MEDS: MORPHINE SULFATE 50 MG in NACL 0.9% 45 ML IV PRN (02:16)
[2016-12-29] MEDS: LORazepam 50 MG in NACL 0.9% 25 ML IV PRN (03:19)
--- NOTE | 2016-12-29 04:00 | NUR ---
NO CHANGE OF CONDITION AT THIS TIME, VSS, AM CARE PROVIDED, ORAL CARE PROVIDED, DAWN CATHETER AND SUPRAPUBIC CATHETER CARE PROVIDED, POSITION CHANGED FOR OFF LOAD PRESSURE. Addendum: 12/29/16 at 0620 by Madyson Hanson RN RESIDUALS CHECKED STILL WITH 60ML, WILL CONTINUE TO HOLD TUBE FEEDING.
[2016-12-29] MEDS: PHENYLEPHRINE 40 MG in NACL 0.9% 250 ML IV PRN ×2 (04:19→12:54)
[2016-12-29] MEDS: PIPER/TAZO 2.25GM/D5W PREMIX 50 ML IV SCH ×2 (04:48→13:31)
--- NOTE | 2016-12-29 05:00 | NUR ---
DR. MCLEOD CAME TO SEE PATIENT AT BEDSIDE.
[2016-12-29 05:42] LABS: INR 1.3 (0.8-1.2); PARTIAL THROMBOPLASTIN TIME 42.3 secs (22-35.6); PROTHROMBIN TIME 12.9 secs (10.8-13.4)
[2016-12-29 05:47] LABS: CALCIUM 8.2 mg/dL (8.5-10.1); CREATININE 2.7 mg/dL (0.7-1.3)
[2016-12-29 05:51] LABS: MAGNESIUM 1.8 mg/dL (1.8-2.4); PHOSPHORUS 6.2 mg/dL (2.5-4.9)
[2016-12-29 05:54] LABS: ANION GAP 17.1 (8-16); CARBON DIOXIDE 20.2 mmol/L (21-32); POTASSIUM 3.3 mmol/L (3.5-5.1)
--- NOTE | 2016-12-29 06:02 | NUR ---
LAB CALLED AND REPORTED PT'S HGB LEVEL WAS 5.9, DR. MCLEOD MADE AWARE, IT IS OK TO REDRAW THE H&H.
--- NOTE | 2016-12-29 06:20 | NUR ---
POSITION CHANGED FOR OFF LOAD PRESSURE, VSS, RESIDUALS CHECKED STILL WITH 60 ML, CONTINUE TO HOLD TUBE FEEDING, DR. MCLEOD MADE AWARE.
--- NOTE | 2016-12-29 06:30 | NUR ---
REC'D PT ON CARESCAPE VENT SETTINGS AC12 VT500 PEEP 5 FIO2 24% ALARMS ON AND FUNCTIONING PROPERLY, AMBU BAG ON SIDE OF VENTILATOR AND VENTILATOR IS PLUGGED INTO RED OUTLET, SXN PT SMALL AMT OF THIN CLEAR SECRETIONS ,B\S ARE CLEAR BILATERALLY, PT IS ORALLY INTUBATED WITH 7.5 ET TUBE AND SECURED WITH ANCHOR FAST AT 23 CM AT LEFT CORNER OF MOUTH AND SKIN INTEGRITY IS INTACT PT IS SLEEPING WITH NO SIGNS OF DISTRESS NOTED AT THIS TIME
[2016-12-29] MEDS: BLOOD GLUCOSE MONITORING 1 DEV DEV FS SCH ×3 (06:37→16:33)
[2016-12-29] MEDS: MIDODRINE 5 MG TAB GT SCH ×2 (06:39→13:31)
[2016-12-29 06:50] LABS: BASOPHILS # (AUTO) 0.1 K/uL (0.00-0.22); BASOPHILS % (AUTO) 0.9 % (0.0-2.0); EOSINOPHILS # (AUTO) 0.3 K/uL (0-0.4); EOSINOPHILS % (AUTO) 4.2 % (0.0-4.0); LYMPHOCYTES # (AUTO) 0.5 K/uL (2.0-11.5); LYMPHOCYTES % (AUTO) 8.2 % (20.5-51.1); MEAN CORPUSCULAR HEMOGLOBIN 28 pg (27-31); MEAN CORPUSCULAR HGB CONC 33 g/dL (33-37); MEAN CORPUSCULAR VOLUME 85 fL (80-94); MONOCYTES # (AUTO) 0.6 K/uL (0.8-1.0); NEUTROPHILS # (AUTO) 4.8 K/uL (1.8-7.7); NEUTROPHILS % (AUTO) 77.7 % (42.2-75.2); RED CELL DISTRIBUTION WIDTH 16.2 % (11.6-13.7)
[2016-12-29 06:52] LABS: HEMATOCRIT 19.5 % (36-52); WHITE BLOOD COUNT (AUTO) 6.3 K/uL (4.8-10.8)
[2016-12-29 06:53] LABS: HEMOGLOBIN 6.5 g/dL (12.0-18.0); PLATELET COUNT (AUTO) 22 K/uL (140-450)
--- NOTE | 2016-12-29 07:10 | NUR ---
RECEIVED REPORT FROM NIGHT RN FOR CONTINUITY OF CARE. PATIENT ON ETT TO VENT, FI02 @ 24%, PEEP 5 AND VOL 500. FC 14FR PATENT AND INTACT TO CLEAR YELLOW URINE IN MODERATE AMOUNT. SUPRAPUBIC CATHETER WITH NO URINE OUTPUT NOTED. SACRALCOCCYX, ABD AND BLE WOUND DRESSING DRY AND INTACT. RIJ CAMERON CATHETER NOTED WITH DRESSING DRY AND INTACT. LEFT IJ CAMERON CATHETER INTACT AND PATENT RUNNING WITH ATIVAN DRIP AT 4 MG/H, MORPHINE AT 4 MG/H, NEOSYNEPHRINE AT 80 MCG/H AND LASIX AT 5 ML/H. CALL LIGHT WITHIN REACH. WILL MONITOR PATIENT.
--- NOTE | 2016-12-29 07:13 | NUR ---
REPORT GIVEN TO LUZ MORRISON AT BEDSIDE FOR CONTINUE OF CARE.
--- NOTE | 2016-12-29 07:53 | NUR ---
SPOKE WITH GHADA FROM [facility] ON 12/28/16. SHE SAID THEY COULD NOT TAKE THE PATIENT IF HE WAS ON DIALYSIS DAILY. I INFORMED HER THAT THE PATIENT IS HAVE A TRACH PLACED ON 12/29/16 AND [facility]. PATIENT WILL NOT BE ON DAILY DIALYSIS.
--- NOTE | 2016-12-29 08:02 | NUR ---
HR ON THE 50'S. MORPHINE DRIP AND ATIVAN DRIP DECREASED TO 2MG/H. RESIDENT PHYSICIAN, DR. MCLEOD MADE AWARE.
[2016-12-29] MEDS ORDERED: NACL 0.9% 1,000 ML IV ONE (08:15)
--- NOTE | 2016-12-29 08:25 | NUR ---
VENT CHECK, NO SXN REQUIRED AT THIS TIME PT IS RESTING, ABG DRAWN ON LB WITHOUT INCIDENT AND AT [address] GÓMEZ MCLEOD WITH NO CHANGES MADE.
[2016-12-29 08:28] LABS: BLOOD GAS BASE EXCESS -7.4 mmol/L (-2.0-2.0); BLOOD GAS HCO3 16.8 mmol/L; BLOOD GAS O2 SAT% 97.6 % (92.0-98.5); BLOOD GAS PCO2 28.2 mmHg (20-50); BLOOD GAS PH 7.392 (7.35-7.45); BLOOD GAS PO2 118.1 mmHg
[2016-12-29] MEDS: ASCORBIC ACID 500 MG/5 ML ORASYR GT SCH (09:07)
[2016-12-29] MEDS: VIT-B COMP/VIT-C/FOLIC ACID 1 TAB GT SCH (09:07)
[2016-12-29] MEDS: LACTOBACILLUS RHAMNOSUS GG 1 EACH CAP GT SCH (09:08)
[2016-12-29] MEDS: NEOMYCIN 500 MG TAB GT SCH ×2 (09:08→13:31)
--- NOTE | 2016-12-29 09:29 | NUR ---
HR RATE 47 BPM, RESIDENT PHYSICIAN DR. MCLEOD MADE AWARE. MORPHINE AND ATIVAN DRIPS DECREASES TO 2 MG/HR. WILL CONTINUE TO MONITOR PATIENT.
[2016-12-29] MEDS: PANTOPRAZOLE 40 MG INJ VIAL IVP SCH (09:32)
--- NOTE | 2016-12-29 10:00 | NUR ---
WARMING BLANKET PLACED ON PATIENT.
[2016-12-29] MEDS ORDERED: NACL 0.9% 500 ML IV SCH (10:05)
--- NOTE | 2016-12-29 10:20 | NUR ---
1 UNIT PRBC STARTED AT THIS TIME. PATIENT IN STABLE CONDITION. WILL CONTINUE TO MONITOR PATIENT.
--- NOTE | 2016-12-29 11:03 | NUR ---
VENT CHECK, SXN PT SMALL AMT OF CLEAR SECRETIONS, B\S ARE CLEAR AND PT IS SLEEPING WITH NO SIGNS OF DISTRESS NOTED
--- NOTE | 2016-12-29 11:12 | NUR ---
12/29/16 RD FOLLOW-UP ASSESSMENT COMPLETED PLEASE REFER TO NUTRITION ASSESSMENT UNDER CARE ACTIVITY FOR ESTIMATED NUTRITIONAL NEEDS. 1. WHEN MEDICALLY FEASIBLE, RESUME EN SUPPORT - FIBERSOURCE HN TO START AT 30 ML/HR, ADVANCE 10 ML Q6H TO A GOAL RATE OF 55 ML/HR + PROSOURCE TID (PROVIDES 1764 KCAL, 116 G PROTEIN, 1066 ML FREE WATER - MEETS 100% KCAL + 92% PROTEIN ESTIMATED NEEDS) 2. RD FOLLOW-UP HIGH RISK, 2-[address]
--- NOTE | 2016-12-29 12:58 | NUR ---
VENT CHECK, SXN PT SMALL AMT OF CLEAR SECRETIONS, B\S ARE CLEAR AND PT IS RESTING WITH NO SIGNS OF DISTRESS
[2016-12-29] MEDS: FUROSEMIDE 100 MG in DEXTROSE 5% 100 ML IV SCH (13:40)
--- NOTE | 2016-12-29 13:56 | NUR ---
SS NOTE: PER DR. SLATER, PT'S FAMILY HAVE CHOSEN PALLIATIVE EXTUBATION FOR PT. I MET WITH PT'S FAMILY INCLUDING PT'S SISTERS AND PROVIDED THEM WITH BEREAVEMENT ALONG WITH MORTUARY INFORMATION. Addendum: 12/29/16 at 1359 by Mehreen Rubio SS PT'S SISTERS - LORI
--- NOTE | 2016-12-29 15:22 | NUR ---
VENT CHECK, NO SXN REQUIRED AT THIS TIME, B\S ARE CLEAR AND FAMILY IS AT BEDSIDE
--- NOTE | 2016-12-29 15:30 | NUR ---
FAMILY AND RETREAD SUPERVISOR AT BEDSIDE.
--- NOTE | 2016-12-29 17:06 | NUR ---
VENT CHECK, SXN PT SMALL AMT OF CLEAR SECRETIONS, PT IS RESTING WITH FAMILY AT BEDSIDE
[2016-12-29] MEDS ORDERED: MORPHINE SULFATE 10 MG/ML SYR IVP SCH (17:29)
--- NOTE | 2016-12-29 17:30 | NUR ---
PATIENT'S BROTHER STATED THAT THEY ARE READY FOR PATIENT TO BE EXTUBATED. RESIDENT PHYSICIAN DR. MANCINI MADE AWARE. DR. MANCINI CAME AND SPOKE TO PATIENT'S FAMILY. ALL CONCERNS AND QUESTIONS ANSWERED BY DR. MANCINI.
--- NOTE | 2016-12-29 17:40 | NUR ---
PT EXTUBATED PER DR. STRICKLAND AND PLACED ON 3LNC Addendum: 12/29/16 at 1745 by Mohini Esquivel RT LUZ MORRISON ADMINISTERED 10 MG OF MORPHINE TO PT BEFORE EXTUBATION
--- NOTE | 2016-12-29 17:41 | NUR ---
MORPHINE 10 MG GIVEN PRIOR TO EXTUBATION. RT AND RESIDENT PHYSICIAN DR. MANCINI AT BEDSIDE DURING EXTUBATION. PATIENT EXTUBATED AND PLACED ON O2 AT 3LPM. CALLED FAMILY IN TO BE WITH PATIENT.
--- NOTE | 2016-12-29 18:19 | NUR ---
ASYSTOLE ON MONITOR. RESIDENT PHYSICIAN, DR. MANCINI MADE AWARE. PRONOUNCED .
--- NOTE | 2016-12-29 18:33 | NUR ---
PLACED A CALL TO [facility]. ABLE TO SPEAK TO MIN . CHARGE NURSE PLACED A CALL TO VESSEL SCRAPPER HELPER'S OFFICE. AVIATION TECHNICIAN MADE AWARE.
--- NOTE | 2016-12-29 19:30 | NUR ---
RECEIVED REPORT FROM LUZ MORRISON, PT WAS AT 1818, DR. MANCINI PRONOUNCED , DR. WILLS WILL SIGN THE CERTIFICATE TOMORROW PER DR. MANCINI, [facility]EN[facility]le HAS BEEN CALLED, INSPECTOR AND HAND PACKAGER AND ADMITTING NOTIFIED, PRINTER [employer] ROBERT TALKED TO MEG, AND RELEASED THE BODY, . FAMILY MEMBERS AT BED SIDE AT THIS TIME.
--- NOTE | 2016-12-29 20:30 | NUR ---
REMOVED ALL TUBINGS, INCLUDING CAMERON CATHETER, DAWN CATHETER, CLEANED UP THE BODY, PUT IN THE BAG.
--- NOTE | 2016-12-29 21:13 | NUR ---
ARELY CALLED, STATED PATIENT WILL NOT BE THE CASE.
--- NOTE | 2016-12-29 21:24 | NUR ---
CALLED [facility], WILL SOLUTION ARCHITECT PATIENT IN ONE AND HALF HOUR.
--- NOTE | 2016-12-29 23:00 | NUR ---
PT'S BODY RELEASED TO [facility].
== END 2016-12-29 23:00 | disposition expired | DRG 853 ==
LOC: MED 12:44 → MTU 15:25 → MIC 19:32
PROVIDERS: ADMIT Family Medicine; ATTEND Family Medicine
PROC: 0BH17EZ Insertion of Endotracheal Airway into Trachea, Via Natural or Artificial Opening (ICD-10-PCS; principal; 2016-12-15)
PROC: 5A1955Z Respiratory Ventilation, Greater than 96 Consecutive Hours (ICD-10-PCS; 2016-12-15)
PROC: 02HV33Z Insertion of Infusion Device into Superior Vena Cava, Percutaneous Approach (ICD-10-PCS; 2016-12-15)
PROC: B548ZZA Ultrasonography of Superior Vena Cava, Guidance (ICD-10-PCS; 2016-12-15)
PROC: 0KBS0ZZ Excision of Right Lower Leg Muscle, Open Approach (ICD-10-PCS; 2016-12-16)
PROC: 0JBR0ZZ Excision of Left Foot Subcutaneous Tissue and Fascia, Open Approach (ICD-10-PCS; 2016-12-16)
PROC: 30233N1 Transfusion of Nonautologous Red Blood Cells into Peripheral Vein, Percutaneous Approach (ICD-10-PCS; 2016-12-17)
PROC: 5A1D60Z (ICD-10-PCS; 2016-12-18)
PROC: 02HV33Z Insertion of Infusion Device into Superior Vena Cava, Percutaneous Approach (ICD-10-PCS; 2016-12-18)
PROC: B548ZZA Ultrasonography of Superior Vena Cava, Guidance (ICD-10-PCS; 2016-12-18)
PROC: 05HM33Z Insertion of Infusion Device into Right Internal Jugular Vein, Percutaneous Approach (ICD-10-PCS; 2016-12-21)
PROC: B543ZZA Ultrasonography of Right Jugular Veins, Guidance (ICD-10-PCS; 2016-12-21)
PROC: 02PYX3Z Removal of Infusion Device from Great Vessel, External Approach (ICD-10-PCS; 2016-12-26)
DX: A41.50 Gram-negative sepsis, unspecified (principal); N17.0 Acute kidney failure with tubular necrosis; L89.154 Pressure ulcer of sacral region, stage 4; R65.21 Severe sepsis with septic shock; J96.01 Acute respiratory failure with hypoxia; L89.104 Pressure ulcer of unspecified part of back, stage 4; G82.50 Quadriplegia, unspecified; J69.0 Pneumonitis due to inhalation of food and vomit; E43 Unspecified severe protein-calorie malnutrition; N18.6 End stage renal disease; L03.116 Cellulitis of left lower limb; E11.52 Type 2 diabetes mellitus with diabetic peripheral angiopathy with gangrene; N39.0 Urinary tract infection, site not specified; E87.1 Hypo-osmolality and hyponatremia; D68.59 Other primary thrombophilia; G82.20 Paraplegia, unspecified; L03.312 Cellulitis of back [any part except buttock and flank]; L03.115 Cellulitis of right lower limb; K76.6 Portal hypertension; I12.0 Hypertensive chronic kidney disease with stage 5 chronic kidney disease or end stage renal disease; T82.898A Other specified complication of vascular prosthetic devices, implants and grafts, initial encounter; Z66 Do not resuscitate; Z51.5 Encounter for palliative care; E11.65 Type 2 diabetes mellitus with hyperglycemia; N31.9 Neuromuscular dysfunction of bladder, unspecified; E86.0 Dehydration; D64.9 Anemia, unspecified; E83.51 Hypocalcemia; E78.5 Hyperlipidemia, unspecified; E83.39 Other disorders of phosphorus metabolism; S31.501A Unspecified open wound of unspecified external genital organs, male, initial encounter; K72.90 Hepatic failure, unspecified without coma; E11.40 Type 2 diabetes mellitus with diabetic neuropathy, unspecified; S30.821A Blister (nonthermal) of abdominal wall, initial encounter; E83.42 Hypomagnesemia; L89.892 Pressure ulcer of other site, stage 2; L89.612 Pressure ulcer of right heel, stage 2; M48.00 Spinal stenosis, site unspecified; M19.90 Unspecified osteoarthritis, unspecified site; E87.8 Other disorders of electrolyte and fluid balance, not elsewhere classified; E11.22 Type 2 diabetes mellitus with diabetic chronic kidney disease; Z74.01 Bed confinement status; Y84.8 Other medical procedures as the cause of abnormal reaction of the patient, or of later complication, without mention of misadventure at the time of the procedure; Y92.238 Other place in hospital as the place of occurrence of the external cause; S91.002A Unspecified open wound, left ankle, initial encounter; D69.6 Thrombocytopenia, unspecified; K70.31 Alcoholic cirrhosis of liver with ascites; B96.20 Unspecified Escherichia coli [E. coli] as the cause of diseases classified elsewhere; Z16.12 Extended spectrum beta lactamase (ESBL) resistance; Z79.82 Long term (current) use of aspirin; Z79.899 Other long term (current) drug therapy; Z79.4 Long term (current) use of insulin; I69.365 Other paralytic syndrome following cerebral infarction, bilateral; Z99.2 Dependence on renal dialysis
CPT/HCPCS: 36415; 36600; 71010; 73660; 74000; 76705; 76770; 80048; 80053; 80202; 80305; 81001; 82009; 82040; 82140; 82272; 82570; 82575; 82803; 82948; 83036; 83605; 83735; 83880; 84100; 84300; 84436; 84439; 84443; 84479; 84484; 85025; 85610; 85730; 86704; 86706; 86708; 86709; 86803; 86886; 86900; 86901; 86920; 87040; 87070; 87075; 87077; 87081; 87086; 87186; 87205; 87340; 89220; 90935; 93005; 93925; 94002; 94003; 94640; 96365; 99285; A4330; A4649; C9113; J1265; J1642; J1644; J1815; J1885; J1940; J2001; J2060; J2185; J2250; J2270; J2370; J2405; J2543; J2704; J2997; J3010; J3370; J3475; J3480; J3490; J7030; J7042; J7060; J7620; P9016; P9046; Q0092; Q0163